=== PATIENT | female | born 1975 | race American Indian/Alaskan Native ===

== ENCOUNTER 2018-12-01 12:16 | Inpatient (IN) | payer MEDICAID, MEDICARE, OTHER ==
--- NOTE | 2018-12-01 12:34 | Emergency Department Report ---
Blank Doc - Documentation Documentation: Here for SOB, Cough, CP, Abdominal Pain. Hx/o CHF, DM II, ICD, This initial assessment diagnostic orders/clinical plan/treatment (s) is/Are subjectto change based on patient's health status, clinical progession and re- assessment by fellow clinical providers in the ED. Further treatment and work-up at subsequent clinical providers decretion. Patient/guardians urged not to elope from s their condition may be serious if not clinically assessed and managed. Inital order include: CBC, CMP, BNP, EKG, UA, CXR
[2018-12-01] MEDS ORDERED: ASPIRIN PO ONE (12:49)
--- NOTE | 2018-12-01 12:54 | Emergency Department Report ---
ED Chest Pain HPI - General Chief Complaint: Pain General Stated Complaint: HANDS/FEET PAIN/ABD/COUGH/CHEST Time Seen by Provider: 12/01/18 12:27 Source: patient, EMS Mode of arrival: Wheelchair Limitations: No Limitations - History of Present Illness Initial Comments: Is a 43-year-old female that presents emergency room with complaints of chest pain and shortness of breath 3 days. Patient also complaining of dyspnea on exertion. They states she's had a cough for about a week but the cough is dry. Patient denies fever chills. Patient denies diaphoresis. Patient states the pain in her chest as a 10 out of 10 and is worsening. He states the pain is in the center of her chest and is nonradiating. Patient states the pain is better with rest and worse with exertion. MD Complaint: chest pain -: Gradual Onset: during rest Pain Location: substernal, left chest Pain Radiation: none Severity: severe Severity scale (0 -10): 10 Quality: sharp Consistency: constant Improves With: rest Worsens With: exertion Context: recent illness re: dyspnea. denies: nausea, vomting, diaphoresis, sense of impending doom Other Symptoms: cough. denies: fever, syncope, rash, acid taste in mouth, leg swelling, palpitations, burping Treatments Prior to Arrival: none Aspirin use within the Past 7 Days: (1) Yes - Related Data On Oral Contraceptives: No Home Medications Medication Instructions Recorded Confirmed Last Taken Furosemide [Lasix] 40 mg PO DAILY 11/19/14 12/02/18 Unknown Rivaroxaban [Xarelto] 20 mg PO DAILY 11/19/14 12/02/18 Unknown Previous Rx's Medication Instructions Recorded Last Taken Type Aspirin EC [Aspirin Enteric Coated 81 mg PO QDAY #30 tablet. 08/26/14 Unknown Rx TAB] Isosorbide Dinitrate [Isordil] 40 mg PO QDAY #30 tablet 08/26/14 Unknown Rx Carvedilol [Coreg] 6.25 mg PO BID #30 tablet 11/27/14 Unknown Rx Lisinopril [Zestril TAB] 20 mg PO QDAY #30 tablet 11/27/14 Unknown Rx metOLazone [Zaroxolyn] 5 mg PO QDAY #30 tablet 11/27/14 Unknown Rx Allergies Allergy/AdvReac Type Severity Reaction Status Date / Time No Known Allergies Allergy Verified 12/01/18 12:19 Heart Score - HEART Score History: Slightly suspicious EKG: Non-specific Age: < 45 Risk factors: > 3 risk factors or hx of atherosclerotic disease Troponin: < normal limit HEART Score: 3 ED Review of Systems ROS: Stated complaint: HANDS/FEET PAIN/ABD/COUGH/CHEST Other details as noted in HPI Constitutional: denies: chills, fever Eyes: denies: eye pain, eye discharge, vision change ENT: denies: ear pain, throat pain Respiratory: cough, shortness of breath, SOB with exertion, SOB at rest. denies: wheezing Cardiovascular: chest pain. 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 Intra- abdominal abscess perirectal abscesses PE and DVT CVA cardiomyopathy C. difficile colitis - Surgical History Past Surgical History?: Yes Hx Coronary Stent: No Hx Pacemaker: No Hx Internal Defibrillator: Yes (AICD) Additional Surgical History: 4 C-sections, ankle surgery (w/plate)-left - Family History Family history: no significant - Social History Smoking Status: Former Smoker Substance Use Type: None - Medications Home Medications: Home Medications Medication Instructions Recorded Confirmed Last Taken Type Aspirin EC [Aspirin Enteric Coated 81 mg PO QDAY #30 tablet. 08/26/14 12/02/18 Unknown Rx TAB] Isosorbide Dinitrate [Isordil] 40 mg PO QDAY #30 tablet 08/26/14 12/02/18 Unknown Rx Furosemide [Lasix] 40 mg PO DAILY 11/19/14 12/02/18 Unknown History Rivaroxaban [Xarelto] 20 mg PO DAILY 11/19/14 12/02/18 Unknown History Carvedilol [Coreg] 6.25 mg PO BID #30 tablet 11/27/14 12/02/18 Unknown Rx Lisinopril [Zestril TAB] 20 mg PO QDAY #30 tablet 11/27/14 12/02/18 Unknown Rx metOLazone [Zaroxolyn] 5 mg PO QDAY #30 tablet 11/27/14 12/02/18 Unknown Rx ED Physical Exam - General Limitations: No Limitations General appearance: alert, in no apparent distress - Head Head exam: Present: atraumatic, normocephalic - Eye Eye exam: Present: normal appearance, PERRL Pupils: Present: normal accommodation - ENT ENT exam: Present: mucous membranes dry - Neck Neck exam: Present: normal inspection - Respiratory Respiratory exam: Present: normal lung sounds bilaterally. Absent: respiratory distress - Cardiovascular Cardiovascular Exam: Present: regular rate, normal rhythm. Absent: systolic murmur, diastolic murmur, rubs, gallop - GI/Abdominal GI/Abdominal exam: Present: soft, normal bowel sounds - Rectal Rectal exam: Present: deferred - Extremities Exam Extremities exam: Present: normal inspection - Back Exam Back exam: Present: normal inspection - Neurological Exam Neurological exam: Present: alert, oriented X3 - Psychiatric Psychiatric exam: Present: normal affect, normal mood - Skin Skin exam: Present: warm, dry, intact, normal color. Absent: rash ED Course Vital Signs 12/01/18 12/01/18 12/01/18 12:29 14:36 17:27 Temperature 98.0 F Pulse Rate 78 72 84 Respiratory 20 16 16 Rate Blood Pressure 170/113 Blood Pressure 141/93 157/115 [Left] O2 Sat by Pulse 99 97 95 Oximetry 12/01/18 12/01/18 12/01/18 18:29 20:00 21:00 Temperature 98.5 F Pulse Rate 84 89 86 Respiratory 16 18 Rate Blood Pressure 153/80 Blood Pressure 167/100 [Left] O2 Sat by Pulse 95 96 Oximetry - Reevaluation(s) Reevaluation #1: Discussed all results with patient. Patient will be admitted to the hospitalist service. Patient agrees with plan of care and admission. 12/01/18 15:40 - Consultations Consultation #1: Hospitalist consulted for admission. Hospitalist to admit patient. Hospitalist to assume care patient. 12/01/18 15:45 CELY score - Cely Score Age > 65: (0) No Aspirin use within the Past 7 Days: (1) Yes 3 or more CAD Risk Factors: (1) Yes 2 or more Angina events in past 24 hrs: (1) Yes Known CAD with more than 50% Stenosis: (1) Yes Elevated Cardiac Markers: (0) No ST Deviation Greater than 0.5mm: (0) No CELY Score: 4 ED Medical Decision Making - Lab Data Result diagrams: 12/01/18 14:11 12/01/18 12:56 - EKG Data -: EKG Interpreted by Me EKG shows normal: sinus rhythm, axis, intervals, QRS complexes, ST-T waves Rate: normal - Radiology Data Radiology results: report reviewed, image reviewed interpreted by me: chf changes AP CHEST: HISTORY: Short of breath Mild cardiomegaly, mild vascular congestion and trace left pleural effusion are suspected. The lungs are generally clear. The bony structures are unremarkable. IMPRESSION: Mild CHF. FINAL REPORT EXAM: CT ANGIO CHEST HISTORY: SOB TECHNIQUE: Enhanced CT of the chest at 2.5 mm axial intervals following a [facility] embolism protocol. Coronal and sagittal imaging were also obtained. Coronal oblique MIP projections were obtained. Contrast: 100 ml of Omnipaque 350 given IV. PRIORS: None. FINDINGS: There is no evidence for pulmonary embolism in the main pulmonary artery, right and left pulmonary arteries or their major distributions. However, CT does not exclude distal pulmonary emboli. There are patchy infiltrates present bilaterally involving all lobes of both lungs. There is slightly greater consolidation in the left apex medially and posterior right lung base. Otherwise, the lung parenchyma are expanded and clear with no evidence for parenchymal nodules, congestion, or pleural effusion. There is no evidence for mediastinal, hilar, or axillary adenopathy. Heart is enlarged. No evidence for ventricular chamber enlargement is seen. Images through the lung bases include the upper abdomen which show gallstones in the gallbladder. Bony structures demonstrate no focal abnormalities. IMPRESSION: 1. no evidence for pulmonary embolism. 2. Patchy infiltrates present bilaterally in all lobes of both lungs. Findings are slightly more consolidated in the left apex medially and right lung base posteriorly 3. cardiomegaly 4. Cholelithiasis - Medical Decision Making Patient is a 43-year-old female that presents to emergency with multiple comp laints. Patient's complaints include chest pain, shortness of breath, dyspnea on exertion, and cough. Patient found to have an STEMI, and CHF exacerbation. Patient placed on a heparin drip. Patient also found to have an elevated d- dimer. Patient had a CTA done which was negative for PE. Patient will be admitted into the hospital service for further evaluation treatment. - Differential Diagnosis cp. acs. nstemi. pe. chf Critical Care Time: Yes Critical care attestation.: If time is entered above; I have spent that time in minutes in the direct care of this critically ill patient, excluding procedure time. Critical Care Time: 45 minutes ED Disposition Clinical Impression: Uncontrolled hypertension, Acute on chronic systolic CHF (congestive heart failure), ORELLANA (dyspnea on exertion), Elevated d-dimer, Elevated brain natriuretic peptide (BNP) level, Elevated troponin I level, NSTEMI (non-ST elevated myocardial infarction) Chest pain Qualifiers: Chest pain type: unspecified Qualified Code(s): R07.9 - Chest pain, unspecified CHF (congestive heart failure) Qualifiers: Heart failure type: systolic Heart failure chronicity: acute on chronic Qualified Code(s): I50.23 - Acute on chronic systolic (congestive) heart failure Dyspnea Qualifiers: Dyspnea type: shortness of breath Qualified Code(s): R06.02 - Shortness of breath Disposition: 09 OP ADMIT IP TO THIS HOSP Is pt being admited?: Yes Does the pt Need Aspirin: No Condition: Critical Time of Disposition: 15:46
[2018-12-01 13:25] LABS: Creatine Kinase MB 1.2 ng/mL (0.0-4.0)
[2018-12-01 13:26] LABS: Alanine Aminotransferase 12 units/L (7-56); Albumin 2.7 g/dL (3.9-5); BUN/Creatinine Ratio 10; Blood Urea Nitrogen 8 mg/dL (7-17); Calcium 8.2 mg/dL (8.4-10.2); Hemolysis Index 9
[2018-12-01 13:37] LABS: Basophils # (Auto) 0.1 K/mm3 (0.0-0.1); Eosinophils # (Auto) 0.1 K/mm3 (0.0-0.4); Eosinophils % (Auto) 1.7 % (0.0-4.3); Hematocrit 42.6 % (30.3-42.9); Hemoglobin 13.6 gm/dl (10.1-14.3); Lymphocytes % (Auto) 15.9 % (13.4-35.0); Mean Corpuscular HGB Conc 32 % (30-34); Mean Corpuscular Volume 85 fl (79-97); Monocytes # (Auto) 0.5 K/mm3 (0.0-0.8); Monocytes % (Auto) 7.8 % (0.0-7.3); Platelet Count 202 K/mm3 (140-440); Red Blood Count 4.99 M/mm3 (3.65-5.03)
[2018-12-01] MEDS ORDERED: HEPARIN 10,000 UNITS/10 ML IV ONE (13:45)
[2018-12-01 13:46] LABS: Red Cell Distribution Width 21.3 % (13.2-15.2)
[2018-12-01] MEDS ORDERED: LASIX IV ONE (13:57)
[2018-12-01 14:10] LABS: Chol/HDL Ratio 2.78 %; HDL Cholesterol 28 mg/dL (40-59); LDL Cholesterol,Direct 41 mg/dL (50-130)
--- NOTE | 2018-12-01 14:19 | XRay Report ---
AP CHEST: HISTORY: Short of breath Mild cardiomegaly, mild vascular congestion and trace left pleural effusion are suspected. The lungs are generally clear. The bony structures are unremarkable. IMPRESSION: Mild CHF.
[2018-12-01 14:39] LABS: INR 1.28 (0.87-1.13)
[2018-12-01 14:55] LABS: Hematocrit 38.9 % (30.3-42.9); Hemoglobin 12.4 gm/dl (10.1-14.3)
[2018-12-01 15:05] LABS: Partial Thromboplastin Time 201.6 Sec. (24.2-36.6)
--- NOTE | 2018-12-01 15:19 | History and Physical Report ---
History of Present Illness Chief complaint: I have chest pain History of present illness: 43 YO Female with MO, DM, HTN, Systolic CHF, OR, PE on therapeutic anticoagulation presents to ED for evaluation. Pt states that she has experienced pain in her chest over the past 3 days with progressively worsening symptoms over the same time frame. Pt states that pain is 10/10, Substernal, sharp in nature, localized somewhat to the left chest, worsened with exertion, relieved with rest, associated with shortness of breath. Pt acknowledges Orthopnea/PND, Decreased exercise tolerance, nonproductive cough. Pt transported to [facility] for further care. Pt seen and evaluated in ED and found to have NSTEMI. Pt initiated on heparin drip. Pt admitted to telemetry. Cardiology consulted in ED. Past History Past Medical History: acute OR, diabetes, heart failure, hypertension Past Surgical History: Social history: . denies: smoking, prescription drug abuse Family history: CAD, diabetes, hypertension Medications and Allergies Allergies Allergy/AdvReac Type Severity Reaction Status Date / Time No Known Allergies Allergy Verified 12/01/18 12:19 Home Medications Medication Instructions Recorded Confirmed Last Taken Type Aspirin EC [Aspirin Enteric Coated 81 mg PO QDAY #30 tablet. 08/26/14 12/02/18 Unknown Rx TAB] Isosorbide Dinitrate [Isordil] 40 mg PO QDAY #30 tablet 08/26/14 12/02/18 Unknown Rx Furosemide [Lasix] 40 mg PO DAILY 11/19/14 12/02/18 Unknown History Rivaroxaban [Xarelto] 20 mg PO DAILY 11/19/14 12/02/18 Unknown History Carvedilol [Coreg] 6.25 mg PO BID #30 tablet 11/27/14 12/02/18 Unknown Rx Lisinopril [Zestril TAB] 20 mg PO QDAY #30 tablet 11/27/14 12/02/18 Unknown Rx metOLazone [Zaroxolyn] 5 mg PO QDAY #30 tablet 11/27/14 12/02/18 Unknown Rx Active Meds: Active Medications Heparin Sodium/Sodium Chloride (Heparin/ 0.45% Nacl-25,000 Unit/500 Ml) 25,000 unit in 500 mls @ 20 mls/hr IV TITRATE MAHOGANY; Protocol Review of Systems Constitutional: no weight loss, no fever, no sweats Ears, nose, mouth and throat: no ear pain, no tinnitis, no nose pain Breasts: no change in shape, no swelling, no mass Cardiovascular: chest pain, orthopnea, shortness of breath, dyspnea on exertion, paroxysmal nocturnal dyspnea, decreased exercise tolerance, no palpitations Respiratory: cough, no excessive sputum, no hemoptysis Gastrointestinal: no nausea, no vomiting, no diarrhea Genitourinary Female: no pelvic pain, no flank pain, no urgency Rectal: no pain, no incontinence, no bleeding Musculoskeletal: no neck pain, no arm numbness/tingling, no shooting leg pain Integumentary: no rash, no redness, no wounds Neurological: no head injury, no weakness, no tingling Psychiatric: no anxiety, no sleep disturbances, no hypersomnia Endocrine: no cold intolerance, no heat intolerance, no excessive thirst, no polyuria Hematologic/Lymphatic: no easy bruising, no easy bleeding Allergic/Immunologic: no urticaria, no allergic rhinitis Exam - Constitutional Vitals: Temp Pulse Resp BP Pulse Ox 98.0 F 72 16 141/93 97 12/01/18 12:29 12/01/18 14:36 12/01/18 14:36 12/01/18 14:36 12/01/18 14:36 General appearance: Present: mild distress, obese - EENT Eyes: Present: PERRL ENT: hearing intact, clear oral mucosa - Neck Neck: Present: supple, normal ROM - Respiratory Respiratory effort: normal Respiratory: bilateral: diminished, rhonchi - Cardiovascular Heart Sounds: Present: S1 & S2. Absent: rub, click - Extremities Extremities: No edema Extremity abnormal: edema Peripheral Pulses: within normal limits - Abdominal General gastrointestinal: Present: soft, non-tender, non-distended, normal bowel sounds Female genitourinary: Present: normal - Integumentary Integumentary: Present: clear, warm, dry - Musculoskeletal Musculoskeletal: gait normal, strength equal bilaterally - Psychiatric Psychiatric: appropriate mood/affect, intact judgment & insight - Neurologic Neurologic: CNII-XII intact, moves all extremities Results - Labs CBC & Chem 7: 12/01/18 14:11 12/01/18 12:56 Labs: Abnormal lab results 12/01/18 12/01/18 12/01/18 Range/Units 12:52 12:56 12:56 MCH 27 L (28-32) pg RDW 21.3 H (13.2-15.2) % Antelope % (Auto) 7.8 H (0.0-7.3) % Lymph # 1.0 L (1.2-5.4) K/mm3 Seg Neutrophils % 73.6 H (40.0-70.0) % PT (12.2-14.9) Sec. INR (0.87-1.13) APTT (24.2-36.6) Sec. D-Dimer 1931.82 H (0-234) ng/mlDDU Glucose 125 H (65-100) mg/dL Calcium 8.2 L (8.4-10.2) mg/dL Total Bilirubin 2.80 H (0.1-1.2) mg/dL Alkaline Phosphatase 152 H (35-129) units/L Troponin T 0.684 H* (0.00-0.029) ng/mL NT-Pro-B Natriuret Pep 42067 H (0-450) pg/mL Albumin 2.7 L (3.9-5) g/dL LDL Cholesterol Direct 41 L (50-130) mg/dL HDL Cholesterol 28 L (40-59) mg/dL 12/01/18 Range/Units 14:11 MCH (28-32) pg RDW (13.2-15.2) % Antelope % (Auto) (0.0-7.3) % Lymph # (1.2-5.4) K/mm3 Seg Neutrophils % (40.0-70.0) % PT 16.8 H (12.2-14.9) Sec. INR 1.28 H (0.87-1.13) APTT 201.6 H* (24.2-36.6) Sec. D-Dimer (0-234) ng/mlDDU Glucose (65-100) mg/dL Calcium (8.4-10.2) mg/dL Total Bilirubin (0.1-1.2) mg/dL Alkaline Phosphatase (35-129) units/L Troponin T (0.00-0.029) ng/mL NT-Pro-B Natriuret Pep (0-450) pg/mL Albumin (3.9-5) g/dL LDL Cholesterol Direct (50-130) mg/dL HDL Cholesterol (40-59) mg/dL Assessment and Plan - Patient Problems (1) NSTEMI (non-ST elevated myocardial infarction) Current Visit: Yes Status: Acute Plan to address problem: Admit to telemetry, cardiology consulted in ED, Initiate heparin drip, serial cardiac enzymes, ekg, Echo, (2) Acute on chronic systolic CHF (congestive heart failure) Current Visit: Yes Status: Acute Plan to address problem: Admit to telemetry, strict I/O, daily weight, monitor uop q shift, afterload reduction, Echo, cardiology consulted in ED, (3) Diabetes Current Visit: Yes Status: Acute Plan to address problem: ADA diet, insulin, accu check (4) HTN (hypertension) Current Visit: Yes Status: Acute Qualifiers: Hypertension type: essential hypertension Qualified Code(s): I10 - Essential (primary) hypertension Plan to address problem: Monitor bp q shift, continue medical management (5) DVT prophylaxis Current Visit: Yes Status: Acute Plan to address problem: SCD to BLE while in bed
[2018-12-01] MEDS ORDERED: ZOFRAN IV PRN (15:25)
[2018-12-01] MEDS ORDERED: PROVENTIL IH PRN (15:25)
[2018-12-01] MEDS ORDERED: SODIUM CHLORIDE FLUSH SYRINGE 10 ML IV PRN ×2 (15:25)
[2018-12-01] MEDS ORDERED: TYLENOL PO PRN (15:25)
[2018-12-01] MEDS ORDERED: BABY ASPIRIN PO STA (15:33)
[2018-12-01] MEDS: HEPARIN/ 0.45% NACL-25,000 UNIT/500 ML 25,000 UNIT/500 ML BAG IV SCH (15:37)
[2018-12-01 16:23] LABS: Bacteria,Urine 2+ /HPF (Negative); Bilirubin,Urine NEG (Negative); Blood,Urine NEG (Negative); Color,Urine Yellow (Yellow); Mucus,Urine FEW /HPF; Protein,Urine <15 mg/dL mg/dL (Negative)
--- NOTE | 2018-12-01 17:43 | Cat Scan Report ---
FINAL REPORT EXAM: CT ANGIO CHEST HISTORY: SOB TECHNIQUE: Enhanced CT of the chest at 2.5 mm axial intervals following a pulmonary embolism protoco l. Coronal and sagittal imaging were also obtained. Coronal oblique MIP projections were obtained. Contrast: 100 ml of Omnipaque 350 given IV. PRIORS: None. FINDINGS: There is no evidence for pulmonary embolism in the main pulmonary artery, right and left pulmonary ar teries or their major distributions. However, CT does not exclude distal pulmonary emboli. There are patchy infiltrates present bilaterally involving all lobes of both lungs. There is slightly greater consolidation in the left apex medially and posterior right lung base. Otherwise, the lung p arenchyma are expanded and clear with no evidence for parenchymal nodules, congestion, or pleural ef fusion. There is no evidence for mediastinal, hilar, or axillary adenopathy. Heart is enlarged. No evidence for ventricular chamber enlargement is seen. Images through the lung bases include the upper abdomen which show gallstones in the gallbladder. Bony structures demonstrate no focal abnormalities. IMPRESSION: 1. no evidence for pulmonary embolism. 2. Patchy infiltrates present bilaterally in all lobes of both lungs. Findings are slightly more cons olidated in the left apex medially and right lung base posteriorly 3. cardiomegaly 4. Cholelithiasis
[2018-12-01] MEDS: SODIUM CHLORIDE FLUSH SYRINGE 10 ML IV SCH (22:03)
[2018-12-01] MEDS: COREG PO SCH (22:03)
[2018-12-01] MEDS: HumaLOG SUB-Q SCH (22:48)
[2018-12-02] MEDS: MORPHINE IV PRN ×2 (00:44→21:08)
[2018-12-02] MEDS ORDERED: ISORDIL TITRADOSE PO SCH (10:00)
[2018-12-02] MEDS ORDERED: HALFPRIN EC PO SCH (10:00)
[2018-12-02] MEDS ORDERED: ISOSORBIDE DINITRATE 40 MG PO SCH (10:00)
[2018-12-02] MEDS ORDERED: ZAROXOLYN PO SCH (10:00)
[2018-12-02] MEDS: HumaLOG SUB-Q SCH ×3 (10:02→18:21)
[2018-12-02] MEDS: ZESTRIL PO SCH (10:04)
[2018-12-02] MEDS: COREG PO SCH ×2 (10:05→21:07)
[2018-12-02] MEDS: SODIUM CHLORIDE FLUSH SYRINGE 10 ML IV SCH (10:09)
[2018-12-02] MEDS ORDERED: PNEUMOVAX 23 IM ONE (12:00)
[2018-12-02] MEDS ORDERED: AFLURIA QUAD 2018-2019 SYRINGE IM ONE (12:00)
--- NOTE | 2018-12-02 13:00 | Consultation ---
Addendum entered and electronically signed by ANDRES PALOMO MD 12/02/18 13:52: 43-year-old woman with a long history of a dilated nonischemic cardiomyopathy, d ating back to 2013. A year ago, she was implanted with a subcutaneous internal cardiac defibrillator. With that at this time with cough and congestion, chest x-ray shows cardiomegaly and mild interstitial edema. Notable on this presentation, her echocardiogram shows in addition to chronic reduced left ventricle ejection fraction of 20%, there is a laminated apical left ventricular thrombus evident on the echo. On further conversations with the patient, she states that this lesion was previously discovered and she was previously on warfarin, which was stopped because she could not afford the required routine INR checks. Recommendations: Continue optimal guideline directed medical therapy for chronic systolic heart failure. If no contraindications, she will be resumed on long-term oral anticoagulation with warfarin for future stroke prophylaxis. Original Note: History of Present Illness Consult date: 12/02/18 Consult reason: elevated troponin History of present illness: Patient presents to this hospital with complaints of shortness of breath, coughs and congestion. Chest x-ray reports no acute cardiopulmonary process. An ECG is benign, sinus rhythm with low voltage. Further evaluation with an echocardiogram revealed evidence of a laminated thrombus in the left ventricular apex. There is severe, 4 chamber dilated cardiomyopathy with a decreased left ventricular ejection fraction 15-20%. Patient gives a history of prior PE and LV thrombus previously treated with warfarin. Patient reports she is no longer taking due to insurance issues. Patient also a history of nonischemic cardiomyopathy by cardiac cath several years ago that reports no significant coronary artery disease, EF 20%. She has a subcutaneous cardiac defibrillator implant and reports she is followed by a post partum nurse at [facility]. Past History Past Medical History: acute AR, diabetes, heart failure, hypertension Past Surgical History: Social history: . denies: smoking, prescription drug abuse Family history: CAD, diabetes, hypertension Medications and Allergies Allergies Allergy/AdvReac Type Severity Reaction Status Date / Time No Known Allergies Allergy Verified 12/01/18 12:19 Home Medications Medication Instructions Recorded Confirmed Last Taken Type Aspirin EC [Aspirin Enteric Coated 81 mg PO QDAY #30 tablet. 08/26/14 12/02/18 Unknown Rx TAB] Isosorbide Dinitrate [Isordil] 40 mg PO QDAY #30 tablet 08/26/14 12/02/18 Unknown Rx Furosemide [Lasix] 40 mg PO DAILY 11/19/14 12/02/18 Unknown History Rivaroxaban [Xarelto] 20 mg PO DAILY 11/19/14 12/02/18 Unknown History Carvedilol [Coreg] 6.25 mg PO BID #30 tablet 11/27/14 12/02/18 Unknown Rx Lisinopril [Zestril TAB] 20 mg PO QDAY #30 tablet 11/27/14 12/02/18 Unknown Rx metOLazone [Zaroxolyn] 5 mg PO QDAY #30 tablet 11/27/14 12/02/18 Unknown Rx Active Meds: Active Medications Acetaminophen (Tylenol) 650 mg PO Q4H PRN PRN Reason: Pain MILD(1-3)/Fever >100.5/OAKES Albuterol (Proventil) 2.5 mg IH Q4HRT PRN PRN Reason: Shortness Of Breath Aspirin (Halfprin Ec) 81 mg PO QDAY [facility] Last Admin: 12/02/18 10:04 Dose: 81 mg Documented by: Carvedilol (Coreg) 6.25 mg PO BID [facility] Last Admin: 12/02/18 10:05 Dose: 6.25 mg Documented by: Heparin Sodium/Sodium Chloride (Heparin/ 0.45% Nacl-25,000 Unit/500 Ml) 25,000 unit in 500 mls @ 20 mls/hr IV TITRATE [facility]; Protocol Last Titration: 12/02/18 07:12 Dose: 1,400 units/hr, 28 mls/hr Documented by: Insulin Human Lispro (Humalog) 0 unit SUB-Q ACHS [facility]; Protocol Last Admin: 12/02/18 10:02 Dose: Not Given Documented by: Isosorbide Dinitrate (Isordil Titradose) 40 mg PO DAILY [facility] Last Admin: 12/02/18 10:06 Dose: 40 mg Documented by: Lisinopril (Zestril) 20 mg PO QDAY [facility] Last Admin: 12/02/18 10:04 Dose: 20 mg Documented by: Metolazone (Zaroxolyn) 5 mg PO QDAY [facility] Last Admin: 12/02/18 10:04 Dose: 5 mg Documented by: Morphine Sulfate (Morphine) 2 mg IV Q4H PRN PRN Reason: Pain, Moderate (4-6) Last Admin: 12/02/18 00:44 Dose: 2 mg Documented by: Ondansetron HCl (Zofran) 4 mg IV Q8H PRN PRN Reason: Nausea And Vomiting Sodium Chloride (Sodium Chloride Flush Syringe 10 Ml) 10 ml IV BID [facility] Last Admin: 12/02/18 10:09 Dose: 10 ml Documented by: Sodium Chloride (Sodium Chloride Flush Syringe 10 Ml) 10 ml IV PRN PRN PRN Reason: LINE FLUSH Sodium Chloride (Sodium Chloride Flush Syringe 10 Ml) 10 ml IV PRN PRN PRN Reason: LINE FLUSH Physical Examination Vital Signs Temp Pulse Resp BP Pulse Ox 98.0 F 78 20 170/113 99 12/01/18 12:29 12/01/18 12:29 12/01/18 12:29 12/01/18 12:29 12/01/18 12:29 General appearance: no acute distress, obese HEENT: Positive: PERRL Cardiac: Positive: Reg Rate and Rhythm Lungs: Positive: Decreased Breath Sounds Neuro: Positive: Grossly Intact Extremities: Present: +1 Edema Results 12/01/18 14:11 12/01/18 12:56 Cardiac Enzymes 12/01/18 Range/Units 12:56 AST 18 (5-40) units/L CK-MB (CK-2) 1.2 (0.0-4.0) ng/mL Coagulation 12/01/18 Range/Units 14:11 PT 16.8 H (12.2-14.9) Sec. INR 1.28 H (0.87-1.13) APTT 201.6 H* (24.2-36.6) Sec. Lipids 12/01/18 Range/Units 12:56 Triglycerides 81 (2-149) mg/dL Cholesterol 78 (50-199) mg/dL HDL Cholesterol 28 L (40-59) mg/dL Cholesterol/HDL Ratio 2.78 % CBC 12/01/18 12/01/18 Range/Units 12:52 14:11 WBC 6.5 (4.5-11.0) K/mm3 RBC 4.99 (3.65-5.03) M/mm3 Hgb 13.6 12.4 (10.1-14.3) gm/dl Hct 42.6 38.9 (30.3-42.9) % Plt Count 202 211 (140-440) K/mm3 Lymph # 1.0 L (1.2-5.4) K/mm3 Burnett # 0.5 (0.0-0.8) K/mm3 Eos # 0.1 (0.0-0.4) K/mm3 Baso # 0.1 (0.0-0.1) K/mm3 Comprehensive Metabolic Panel 12/01/18 Range/Units 12:56 Sodium 141 (137-145) mmol/L Potassium 3.6 (3.6-5.0) mmol/L Chloride 101.1 (98-107) mmol/L Carbon Dioxide 27 (22-30) mmol/L BUN 8 (7-17) mg/dL Creatinine 0.8 (0.7-1.2) mg/dL Glucose 125 H (65-100) mg/dL Calcium 8.2 L (8.4-10.2) mg/dL AST 18 (5-40) units/L ALT 12 (7-56) units/L Alkaline Phosphatase 152 H (35-129) units/L Total Protein 6.9 (6.3-8.2) g/dL Albumin 2.7 L (3.9-5) g/dL Assessment and Plan Shortness of breath Laminated LV thrombus Nonischemic cardiomyopathy Presence of AICD, subcutaneous Obesity
[2018-12-02] MEDS: HEPARIN/ 0.45% NACL-25,000 UNIT/500 ML 25,000 UNIT/500 ML BAG IV SCH ×2 (13:12→15:27)
--- NOTE | 2018-12-02 16:56 | Progress Note ---
Assessment and Plan Assessment and plan: Patient is a 43 yo woman with a history of Dilated NICMP s/p ICD, CHF with EF 20%, PE noncompliant with anticoagulation, hypertension and DM type 2 who presented to [facility] ED with chest pains, sob and cough. * pCXR shows mild CHF * 2D ECHO Conclusions: Severe 4 chamber dilated cardiomyopathy, left ventricular chamber size is severely dilated, global left ventricular systolic function is severely decrease, estimated ejection fraction is 15-20%, a Laminated thrombus is visualized in the left ventricular APEX, mild to moderate MR, mild to moderated TR, evidence of moderate pulmonary hypertension, RVSP is calculated at 48 mmHg -Chest pains is actually reproducible and elevated troponin, d/w Dr. Ga, no NSTEMI and I was told to stop the heparin drip, most likely related to CHF: start iv lasix bid and Spironolactone per Dr. Ga. -Laminated LV thrombus, d/w Dr. Ga: treat with Coumadin without iv heparin drip/bridging -Acute on chronic systolic CHF (congestive heart failure): start iv lasix bid and Spironolactone per Dr. Ga. -Diabetes Mellitus: ADA diet, insulin, accu check -HTN (hypertension): Monitor bp q shift, continue medical management History Interval history: Patient was seen and examined. Follow-up on current diagnosis of chest pains. Overnight uneventful. Patient denies any chest pain, shortness breath, nausea/vomiting or severe headaches. Imaging, nursing note, chart, labs and old chart reviewed. Discussed with patient. Hospitalist Physical - Physical exam Narrative exam: Gen: WDWN, NAD, Awake, Alert, Orientated, bmi 45.8 HEENT: NCAT, EOMI, PERRL, OP Clear Neck: supple, no adenopathy, no thyromegaly, equivocal, JVD CVS/Heart: RRR, normal S1S2, pulses present bilaterally Chest/Lungs: diminished bs bilateral with crackles, Symmetrical chest expansion, good air entry bilaterally, reproducible cw tenderness GI/Abdomen: soft, NTND, good bowel sounds, no guarding or rebound /Bladder: no suprapubic tenderness, no CVA or paraspinal tenderness Extermity/Skin: BLE edema, no obvious rash MSK: FROM x 4 Neuro: CN 2-12 grossly intact, no new focal deficits Psych: calm - Constitutional Vitals: Temp Pulse Resp BP Pulse Ox 97.2 F L 73 18 128/85 94 12/02/18 11:21 12/02/18 11:21 12/02/18 11:21 12/02/18 11:21 12/02/18 11:21 General appearance: Present: no acute distress, obese Results - Labs CBC & Chem 7: 12/01/18 14:11 12/01/18 12:56 Labs: Laboratory Last Values WBC 6.5 K/mm3 (4.5-11.0) 12/01/18 12:52 RBC 4.99 M/mm3 (3.65-5.03) 12/01/18 12:52 Hgb 12.4 gm/dl (10.1-14.3) 12/01/18 14:11 Hct 38.9 % (30.3-42.9) 12/01/18 14:11 MCV 85 fl (79-97) 12/01/18 12:52 MCH 27 pg (28-32) L 12/01/18 12:52 MCHC 32 % (30-34) 12/01/18 12:52 RDW 21.3 % (13.2-15.2) H 12/01/18 12:52 Plt Count 211 K/mm3 (140-440) 12/01/18 14:11 Lymph % (Auto) 15.9 % (13.4-35.0) 12/01/18 12:52 Taney % (Auto) 7.8 % (0.0-7.3) H 12/01/18 12:52 Eos % (Auto) 1.7 % (0.0-4.3) 12/01/18 12:52 Baso % (Auto) Presser All Around 12/01/18 12:52 Lymph # 1.0 K/mm3 (1.2-5.4) L 12/01/18 12:52 Taney # 0.5 K/mm3 (0.0-0.8) 12/01/18 12:52 Eos # 0.1 K/mm3 (0.0-0.4) 12/01/18 12:52 Baso # 0.1 K/mm3 (0.0-0.1) 12/01/18 12:52 Seg Neutrophils % 73.6 % (40.0-70.0) H 12/01/18 12:52 Seg Neutrophils # 4.8 K/mm3 (1.8-7.7) 12/01/18 12:52 PT 16.8 Sec. (12.2-14.9) H 12/01/18 14:11 INR 1.28 (0.87-1.13) H 12/01/18 14:11 APTT 201.6 Sec. (24.2-36.6) H* 12/01/18 14:11 D-Dimer 1931.82 ng/mlDDU (0-234) H 12/01/18 12:56 Heparin Anti-Xa Level 0.24 U.I./ml (0.3-0.7) L 12/02/18 13:18 Sodium 141 mmol/L (137-145) 12/01/18 12:56 Potassium 3.6 mmol/L (3.6-5.0) 12/01/18 12:56 Chloride 101.1 mmol/L (98-107) 12/01/18 12:56 Carbon Dioxide 27 mmol/L (22-30) 12/01/18 12:56 Anion Gap 17 mmol/L 12/01/18 12:56 BUN 8 mg/dL (7-17) 12/01/18 12:56 Creatinine 0.8 mg/dL (0.7-1.2) 12/01/18 12:56 Estimated GFR > 60 ml/min 12/01/18 12:56 BUN/Creatinine Ratio 10 % 12/01/18 12:56 Glucose 125 mg/dL (65-100) H 12/01/18 12:56 POC Glucose 157 (70-105) H 12/02/18 16:03 Calcium 8.2 mg/dL (8.4-10.2) L 12/01/18 12:56 Total Bilirubin 2.80 mg/dL (0.1-1.2) H 12/01/18 12:56 AST 18 units/L (5-40) 12/01/18 12:56 ALT 12 units/L (7-56) 12/01/18 12:56 Alkaline Phosphatase 152 units/L (35-129) H 12/01/18 12:56 Total Creatine Kinase 96 units/L (30-135) 12/01/18 12:56 CK-MB (CK-2) 1.2 ng/mL (0.0-4.0) 12/01/18 12:56 CK-MB (CK-2) Rel Index 1.2 (0-4) 12/01/18 12:56 Troponin T 0.616 ng/mL (0.00-0.029) H* 12/01/18 23:05 NT-Pro-B Natriuret Pep 44358 pg/mL (0-450) H 12/01/18 12:56 Total Protein 6.9 g/dL (6.3-8.2) 12/01/18 12:56 Albumin 2.7 g/dL (3.9-5) L 12/01/18 12:56 Albumin/Globulin Ratio 0.6 % 12/01/18 12:56 Triglycerides 81 mg/dL (2-149) 12/01/18 12:56 Cholesterol 78 mg/dL (50-199) 12/01/18 12:56 LDL Cholesterol Direct 41 mg/dL (50-130) L 12/01/18 12:56 HDL Cholesterol 28 mg/dL (40-59) L 12/01/18 12:56 Cholesterol/HDL Ratio 2.78 % 12/01/18 12:56 HCG, Qual Negative (Negative) 12/01/18 13:51 Urine Color Yellow (Yellow) 12/01/18 14:29 Urine Turbidity Clear (Clear) 12/01/18 14:29 Urine pH 7.0 (5.0-7.0) 12/01/18 14:29 Ur Specific Jarreau 1.004 (1.003-1.030) 12/01/18 14:29 Urine Protein <15 mg/dl mg/dL (Negative) 12/01/18 14:29 Urine Glucose (UA) Neg mg/dL (Negative) 12/01/18 14:29 Urine Ketones Neg mg/dL (Negative) 12/01/18 14:29 Urine Blood Neg (Negative) 12/01/18 14:29 Urine Nitrite Neg (Negative) 12/01/18 14:29 Urine Bilirubin Neg (Negative) 12/01/18 14:29 Urine Urobilinogen 2.0 mg/dL (<2.0) 12/01/18 14:29 Ur Leukocyte Esterase Neg (Negative) 12/01/18 14:29 Urine WBC (Auto) 2.0 /HPF (0.0-6.0) 12/01/18 14:29 Urine RBC (Auto) 2.0 /HPF (0.0-6.0) 12/01/18 14:29 U Epithel Cells (Auto) 1.0 /HPF (0-13.0) 12/01/18 14:29 Urine Bacteria (Auto) 2+ /HPF (Negative) 12/01/18 14:29 Urine Mucus Few /HPF 12/01/18 14:29
[2018-12-02] MEDS: LASIX IV SCH (18:20)
[2018-12-02] MEDS: ALDACTONE PO SCH (18:22)
[2018-12-03] MEDS: HumaLOG SUB-Q SCH ×5 (00:13→21:59)
[2018-12-03 06:14] LABS: Hematocrit 36.1 % (30.3-42.9); Hemoglobin 11.5 gm/dl (10.1-14.3); Mean Corpuscular HGB Conc 32 % (30-34); Mean Corpuscular Volume 86 fl (79-97); Platelet Count 189 K/mm3 (140-440); Red Blood Count 4.22 M/mm3 (3.65-5.03)
[2018-12-03 06:16] LABS: Red Cell Distribution Width 20.9 % (13.2-15.2)
[2018-12-03 06:26] LABS: BUN/Creatinine Ratio 10; Blood Urea Nitrogen 11 mg/dL (7-17); Calcium 8.2 mg/dL (8.4-10.2); Hemolysis Index 5
[2018-12-03] MEDS: LASIX IV SCH ×2 (06:52→17:39)
--- NOTE | 2018-12-03 09:29 | Progress Note ---
Addendum entered and electronically signed by RONALDO ALBARADO MD 12/03/18 09:38: Continue IV diuresis Replace potassium Add holding parameters to coreg, lasix and lisinopril Discontinue Isordil Resume eliquis for history of LV thrombus (patient not on coumadin due to non- compliance with INR checks) Advised fluid restriction Original Note: Assessment and Plan Shortness of breath Hx of Laminated LV thrombus Nonischemic cardiomyopathy Presence of AICD, subcutaneous Obesity Echocardiogram shows chronic reduced left ventricle ejection fraction of 20%. There is a laminated apical left ventricular thrombus evident on the echo. On further conversations with the patient, she states that this lesion was previously discovered and she was previously on warfarin, which was stopped because she could not afford the required routine INR checks. Patient reports she is taking eliquis as an outpatient. Recommendations: Continue optimal medical therapy for chronic systolic heart failure. Eliquis will be resumed for long-term oral anticoagulation for stroke prophylaxis. Subjective Date of service: 12/03/18 Interval history: No cardiac complaints. No distress noted. Objective Vital Signs Temp Pulse Resp BP Pulse Ox 12/03/18 08:15 98.1 F 12/03/18 08:13 62 18 131/87 97 12/03/18 04:15 98.0 F 60 18 90/54 95 12/03/18 04:00 65 12/02/18 20:46 98.0 F 63 20 100/63 100 12/02/18 18:22 65 129/82 12/02/18 15:59 98.4 F 65 18 129/82 96 12/02/18 11:21 97.2 F L 73 18 128/85 94 12/02/18 10:06 69 139/101 12/02/18 10:05 69 139/101 12/02/18 10:04 69 139/101 - Physical Examination General: No Apparent Distress HEENT: Positive: PERRL Cardiac: Positive: Reg Rate and Rhythm Lungs: Positive: Decreased Breath Sounds Neuro: Positive: Grossly Intact Extremities: Present: +1 Edema - Labs and Meds CBC 12/03/18 Range/Units 05:10 WBC 6.4 (4.5-11.0) K/mm3 RBC 4.22 (3.65-5.03) M/mm3 Hgb 11.5 (10.1-14.3) gm/dl Hct 36.1 (30.3-42.9) % Plt Count 189 (140-440) K/mm3 Comprehensive Metabolic Panel 12/03/18 Range/Units 05:10 Sodium 141 (137-145) mmol/L Potassium 3.0 L (3.6-5.0) mmol/L Chloride 98.5 (98-107) mmol/L Carbon Dioxide 29 (22-30) mmol/L BUN 11 (7-17) mg/dL Creatinine 1.1 (0.7-1.2) mg/dL Glucose 123 H (65-100) mg/dL Calcium 8.2 L (8.4-10.2) mg/dL
[2018-12-03] MEDS: SODIUM CHLORIDE FLUSH SYRINGE 10 ML IV SCH ×3 (10:25→21:19)
[2018-12-03] MEDS: ALDACTONE PO SCH (10:26)
[2018-12-03] MEDS: COREG PO SCH ×2 (10:47→21:15)
[2018-12-03] MEDS: ZESTRIL PO SCH (10:47)
[2018-12-03] MEDS: ELIQUIS PO SCH ×2 (10:47→21:15)
[2018-12-03] MEDS: K-DUR PO SCH ×2 (10:47→15:00)
[2018-12-03] MEDS: MORPHINE IV PRN (21:15)
[2018-12-03] MEDS ORDERED: MAGNESIUM SULFATE 2GM/50ML 2 GM/50 ML BAG IV ONE (21:25)
[2018-12-03] MEDS ORDERED: K-DUR PO ONE (21:26)
[2018-12-04 05:06] LABS: Hematocrit 37.2 % (30.3-42.9); Mean Corpuscular HGB Conc 32 % (30-34); Mean Corpuscular Volume 85 fl (79-97); Platelet Count 222 K/mm3 (140-440); Red Blood Count 4.39 M/mm3 (3.65-5.03)
[2018-12-04 05:07] LABS: Red Cell Distribution Width 21.3 % (13.2-15.2)
[2018-12-04 05:39] LABS: BUN/Creatinine Ratio 12; Blood Urea Nitrogen 12 mg/dL (7-17); Calcium 8.5 mg/dL (8.4-10.2); Hemolysis Index 15
[2018-12-04] MEDS: LASIX IV SCH ×2 (06:11→17:21)
--- NOTE | 2018-12-04 08:15 | Progress Note ---
Assessment and Plan Assessment and plan: Patient is a 43 yo woman with a history of Dilated NICMP s/p ICD, CHF with EF 20%, PE noncompliant with anticoagulation, hypertension and DM type 2 who presented to [facility] ED with chest pains, sob and cough. * pCXR shows mild CHF * 2D ECHO Conclusions: Severe 4 chamber dilated cardiomyopathy, left ventricular chamber size is severely dilated, global left ventricular systolic function is severely decrease, estimated ejection fraction is 15-20%, a Laminated thrombus is visualized in the left ventricular APEX, mild to moderate MR, mild to moderated TR, evidence of moderate pulmonary hypertension, RVSP is calculated at 48 mmHg -Chest pains is actually reproducible/msk/costochondritis and elevated troponin, d/w Dr. Ga, no NSTEMI and I was told to stop the heparin drip, most likely related to CHF: start iv lasix bid and Spironolactone per Dr. Ga. -Laminated LV thrombus, d/w Dr. Ga: treat with Coumadin without iv heparin drip/bridging==>changed to Eliquis -Acute on chronic systolic CHF (congestive heart failure): start iv lasix bid and Spironolactone per Dr. Ga. -Diabetes Mellitus: ADA diet, insulin, accu check -HTN (hypertension): Monitor bp q shift, continue medical management -Transient Afib overnight; already rate controlled, icd and a/c D/c if cleared by Cardiology History Interval history: Patient was seen and examined. Follow-up on current diagnosis of chest pains doing better. Overnight uneventful. Patient denies any chest pain, shortness breath, nausea/vomiting or severe headaches. Imaging, nursing note, chart, labs and old chart reviewed. Discussed with patient. Hospitalist Physical - Physical exam Narrative exam: Gen: WDWN, NAD, Awake, Alert, Orientated, bmi 45.8 HEENT: NCAT, EOMI, PERRL, OP Clear Neck: supple, no adenopathy, no thyromegaly, equivocal, JVD CVS/Heart: RRR, normal S1S2, pulses present bilaterally Chest/Lungs: diminished bs bilateral with crackles, Symmetrical chest expansion, good air entry bilaterally, reproducible cw tenderness GI/Abdomen: soft, NTND, good bowel sounds, no guarding or rebound /Bladder: no suprapubic tenderness, no CVA or paraspinal tenderness Extermity/Skin: BLE edema, no obvious rash MSK: FROM x 4 Neuro: CN 2-12 grossly intact, no new focal deficits Psych: calm - Constitutional Vitals: Temp Pulse Resp BP Pulse Ox 97.8 F 82 18 115/80 95 12/04/18 03:42 12/04/18 04:00 12/04/18 03:42 12/04/18 03:42 12/04/18 03:42 General appearance: Present: no acute distress, obese Results - Labs CBC & Chem 7: 12/04/18 04:28 12/04/18 04:28 Labs: Laboratory Last Values WBC 6.7 K/mm3 (4.5-11.0) 12/04/18 04:28 RBC 4.39 M/mm3 (3.65-5.03) 12/04/18 04:28 Hgb 12.0 gm/dl (10.1-14.3) 12/04/18 04:28 Hct 37.2 % (30.3-42.9) 12/04/18 04:28 MCV 85 fl (79-97) 12/04/18 04:28 MCH 27 pg (28-32) L 12/04/18 04:28 MCHC 32 % (30-34) 12/04/18 04:28 RDW 21.3 % (13.2-15.2) H 12/04/18 04:28 Plt Count 222 K/mm3 (140-440) 12/04/18 04:28 Lymph % (Auto) 15.9 % (13.4-35.0) 12/01/18 12:52 Dawson % (Auto) 7.8 % (0.0-7.3) H 12/01/18 12:52 Eos % (Auto) 1.7 % (0.0-4.3) 12/01/18 12:52 Baso % (Auto) Blind Eyeletter 12/01/18 12:52 Lymph # 1.0 K/mm3 (1.2-5.4) L 12/01/18 12:52 Dawson # 0.5 K/mm3 (0.0-0.8) 12/01/18 12:52 Eos # 0.1 K/mm3 (0.0-0.4) 12/01/18 12:52 Baso # 0.1 K/mm3 (0.0-0.1) 12/01/18 12:52 Seg Neutrophils % 73.6 % (40.0-70.0) H 12/01/18 12:52 Seg Neutrophils # 4.8 K/mm3 (1.8-7.7) 12/01/18 12:52 PT 16.8 Sec. (12.2-14.9) H 12/01/18 14:11 INR 1.28 (0.87-1.13) H 12/01/18 14:11 APTT 201.6 Sec. (24.2-36.6) H* 12/01/18 14:11 D-Dimer 1931.82 ng/mlDDU (0-234) H 12/01/18 12:56 Heparin Anti-Xa Level 0.24 U.I./ml (0.3-0.7) L 12/02/18 13:18 Sodium 143 mmol/L (137-145) 12/04/18 04:28 Potassium 4.0 mmol/L (3.6-5.0) D 12/04/18 04:28 Chloride 100.4 mmol/L (98-107) 12/04/18 04:28 Carbon Dioxide 28 mmol/L (22-30) 12/04/18 04:28 Anion Gap 19 mmol/L 12/04/18 04:28 BUN 12 mg/dL (7-17) 12/04/18 04:28 Creatinine 1.0 mg/dL (0.7-1.2) 12/04/18 04:28 Estimated GFR > 60 ml/min 12/04/18 04:28 BUN/Creatinine Ratio 12 % 12/04/18 04:28 Glucose 135 mg/dL (65-100) H 12/04/18 04:28 POC Glucose 150 (70-105) H 12/04/18 07:23 Calcium 8.5 mg/dL (8.4-10.2) 12/04/18 04:28 Magnesium 1.40 mg/dL (1.7-2.3) L 12/03/18 05:10 Total Bilirubin 2.80 mg/dL (0.1-1.2) H 12/01/18 12:56 AST 18 units/L (5-40) 12/01/18 12:56 ALT 12 units/L (7-56) 12/01/18 12:56 Alkaline Phosphatase 152 units/L (35-129) H 12/01/18 12:56 Total Creatine Kinase 96 units/L (30-135) 12/01/18 12:56 CK-MB (CK-2) 1.2 ng/mL (0.0-4.0) 12/01/18 12:56 CK-MB (CK-2) Rel Index 1.2 (0-4) 12/01/18 12:56 Troponin T 0.616 ng/mL (0.00-0.029) H* 12/01/18 23:05 NT-Pro-B Natriuret Pep 80693 pg/mL (0-450) H 12/01/18 12:56 Total Protein 6.9 g/dL (6.3-8.2) 12/01/18 12:56 Albumin 2.7 g/dL (3.9-5) L 12/01/18 12:56 Albumin/Globulin Ratio 0.6 % 12/01/18 12:56 Triglycerides 81 mg/dL (2-149) 12/01/18 12:56 Cholesterol 78 mg/dL (50-199) 12/01/18 12:56 LDL Cholesterol Direct 41 mg/dL (50-130) L 12/01/18 12:56 HDL Cholesterol 28 mg/dL (40-59) L 12/01/18 12:56 Cholesterol/HDL Ratio 2.78 % 12/01/18 12:56 HCG, Qual Negative (Negative) 12/01/18 13:51 Urine Color Yellow (Yellow) 12/01/18 14:29 Urine Turbidity Clear (Clear) 12/01/18 14:29 Urine pH 7.0 (5.0-7.0) 12/01/18 14:29 Ur Specific Oakes 1.004 (1.003-1.030) 12/01/18 14:29 Urine Protein <15 mg/dl mg/dL (Negative) 12/01/18 14:29 Urine Glucose (UA) Neg mg/dL (Negative) 12/01/18 14:29 Urine Ketones Neg mg/dL (Negative) 12/01/18 14:29 Urine Blood Neg (Negative) 12/01/18 14:29 Urine Nitrite Neg (Negative) 12/01/18 14:29 Urine Bilirubin Neg (Negative) 12/01/18 14:29 Urine Urobilinogen 2.0 mg/dL (<2.0) 12/01/18 14:29 Ur Leukocyte Esterase Neg (Negative) 12/01/18 14:29 Urine WBC (Auto) 2.0 /HPF (0.0-6.0) 12/01/18 14:29 Urine RBC (Auto) 2.0 /HPF (0.0-6.0) 12/01/18 14:29 U Epithel Cells (Auto) 1.0 /HPF (0-13.0) 12/01/18 14:29 Urine Bacteria (Auto) 2+ /HPF (Negative) 12/01/18 14:29 Urine Mucus Few /HPF 12/01/18 14:29
--- NOTE | 2018-12-04 08:19 | Discharge Summary ---
Providers - Providers Date of Admission: 12/01/18 15:25 Date of discharge: 12/05/18 Attending physician: KARIME GRANDE 12/02/18 17:03 Consult to Physician [CONS] Routine Comment: Consulting Provider: ANDRES PALOMO Physician Instructions: Already following Reason For Exam: Elevated troponin [facility] Condition: Stable Hospital course: Patient is a 43 yo woman with a history of Dilated NICMP s/p ICD, CHF with EF 20%, PE noncompliant with anticoagulation, hypertension and DM type 2 who presented to [facility] ED with chest pains, sob and cough. * pCXR shows mild CHF * 2D ECHO Conclusions: Severe 4 chamber dilated cardiomyopathy, left ventricular chamber size is severely dilated, global left ventricular systolic function is severely decrease, estimated ejection fraction is 15-20%, a Laminated thrombus is visualized in the left ventricular APEX, mild to moderate MR, mild to moderated TR, evidence of moderate pulmonary hypertension, RVSP is calculated at 48 mmHg -Chest pains is actually reproducible and elevated troponin, d/w Dr. Palomo, no NSTEMI and I was told to stop the heparin drip, most likely related to CHF: start iv lasix bid and Spironolactone per Dr. Palomo. -Laminated LV thrombus, d/w Dr. Palomo: treat with Coumadin without iv heparin drip/bridging==>on Xarelto at home -Acute on chronic systolic CHF (congestive heart failure): start iv lasix bid and Spironolactone per Dr. Palomo. -Diabetes Mellitus: ADA diet, insulin, accu check -HTN (hypertension): Monitor bp q shift, continue medical management Disposition: DC-30 STILL A PATIENT Time spent for discharge: 34 minutes Core Measure Documentation - Palliative Care Palliative Care/ Comfort Measures: Not Applicable - Core Measures Any of the following diagnoses?: heart failure - VTE Discharge Requirements Deep Vein Thrombosis/Pulmonary Embolism Present on Admission: No Has pt received <5 days of overlap therapy or INR<2.0: No Anticoagulant overlap therapy prescribed at discharge: No Contraindication No Overlap Therapy order at DC: Not Indicated - Heart Failure Discharge Requirements MARJAN/ARB for LVSD if EF <40%: Yes Beta nicole at discharge: Yes Exam - Physical Exam Narrative exam: Gen: WDWN, NAD, Awake, Alert, Orientated, bmi 45.8 HEENT: NCAT, EOMI, PERRL, OP Clear Neck: supple, no adenopathy, no thyromegaly, equivocal, JVD CVS/Heart: RRR, normal S1S2, pulses present bilaterally Chest/Lungs: diminished bs bilateral with crackles, Symmetrical chest expansion, good air entry bilaterally, reproducible cw tenderness GI/Abdomen: soft, NTND, good bowel sounds, no guarding or rebound /Bladder: no suprapubic tenderness, no CVA or paraspinal tenderness Extermity/Skin: BLE edema, no obvious rash MSK: FROM x 4 Neuro: CN 2-12 grossly intact, no new focal deficits Psych: calm - Constitutional Vitals: Temp Pulse Resp BP Pulse Ox 97.8 F 82 18 115/80 95 12/04/18 03:42 12/04/18 04:00 12/04/18 03:42 12/04/18 03:42 12/04/18 03:42 Plan Activity: other (no strenous activity unless cleared by Cardiology) Diet: low salt Follow up with: ARABELLA GLE[place] MD FREDO [Primary Care Provider] - 3-5 Days ANDRES PALOMO MD [Staff Physician] - 7 Days Prescriptions: Carvedilol [Coreg] 6.25 mg PO BID #30 tablet Furosemide [Lasix TAB] 40 mg PO QDAY #30 tablet Lisinopril [Zestril TAB] 20 mg PO QDAY #30 tablet Spironolactone [Aldactone] 25 mg PO QDAY #30 tablet
[2018-12-04] MEDS: HumaLOG SUB-Q SCH ×4 (08:31→22:33)
[2018-12-04] MEDS: COREG PO SCH ×2 (09:49→22:24)
[2018-12-04] MEDS: ZESTRIL PO SCH (09:49)
[2018-12-04] MEDS: ELIQUIS PO SCH ×2 (09:49→22:24)
[2018-12-04] MEDS: ALDACTONE PO SCH (09:50)
[2018-12-04] MEDS: SODIUM CHLORIDE FLUSH SYRINGE 10 ML IV SCH ×2 (09:53→22:34)
[2018-12-05] MEDS: LASIX IV SCH (06:04)
[2018-12-05] MEDS: HumaLOG SUB-Q SCH (07:45)
[2018-12-05 08:46] VITALS: BP 132/86
[2018-12-05] MEDS: COREG PO SCH (09:23)
[2018-12-05] MEDS: ZESTRIL PO SCH (09:23)
[2018-12-05] MEDS: ALDACTONE PO SCH (09:23)
[2018-12-05] MEDS: SODIUM CHLORIDE FLUSH SYRINGE 10 ML IV SCH (09:24)
[2018-12-05] MEDS: ELIQUIS PO SCH (09:28)
--- NOTE | 2018-12-05 10:40 | Progress Note ---
Assessment and Plan Assessment and plan: Patient is a 43 yo woman with a history of Dilated NICMP s/p ICD, CHF with EF 20%, PE noncompliant with anticoagulation, hypertension and DM type 2 who presented to [facility] ED with chest pains, sob and cough. * pCXR shows mild CHF * 2D ECHO Conclusions: Severe 4 chamber dilated cardiomyopathy, left ventricular chamber size is severely dilated, global left ventricular systolic function is severely decrease, estimated ejection fraction is 15-20%, a Laminated thrombus is visualized in the left ventricular APEX, mild to moderate MR, mild to moderated TR, evidence of moderate pulmonary hypertension, RVSP is calculated at 48 mmHg -Chest pains is actually reproducible/msk/costochondritis and elevated troponin, d/w Dr. Ga, no NSTEMI and I was told to stop the heparin drip, most likely related to CHF: start iv lasix bid and Spironolactone per Dr. Ga. -Laminated LV thrombus, d/w Dr. Ga: treat with Coumadin without iv heparin drip/bridging==>changed to Eliquis -Acute on chronic systolic CHF (congestive heart failure): start iv lasix bid and Spironolactone per Dr. Ga. -Diabetes Mellitus: ADA diet, insulin, accu check -HTN (hypertension): Monitor bp q shift, continue medical management -Transient Afib overnight; already rate controlled, icd and a/c Patient refusing to go home History Interval history: Patient was seen and examined. Follow-up on current diagnosis of chest pains doing better. Overnight uneventful. Patient denies any chest pain, shortness breath, nausea/vomiting or severe headaches. Imaging, nursing note, chart, labs and old chart reviewed. Discussed with patient. Hospitalist Physical - Physical exam Narrative exam: Gen: WDWN, NAD, Awake, Alert, Orientated, bmi 45.8 HEENT: NCAT, EOMI, PERRL, OP Clear Neck: supple, no adenopathy, no thyromegaly, equivocal, JVD CVS/Heart: RRR, normal S1S2, pulses present bilaterally Chest/Lungs: diminished bs bilateral with crackles, Symmetrical chest expansion, good air entry bilaterally, reproducible cw tenderness GI/Abdomen: soft, NTND, good bowel sounds, no guarding or rebound /Bladder: no suprapubic tenderness, no CVA or paraspinal tenderness Extermity/Skin: BLE edema, no obvious rash MSK: FROM x 4 Neuro: CN 2-12 grossly intact, no new focal deficits Psych: calm - Constitutional Vitals: Temp Pulse Resp BP Pulse Ox 97.4 F L 68 18 132/86 99 12/05/18 08:03 12/05/18 09:23 12/05/18 08:03 12/05/18 09:23 12/05/18 04:53 General appearance: Present: no acute distress, obese Results - Labs CBC & Chem 7: 12/04/18 04:28 12/04/18 04:28 Labs: Laboratory Last Values WBC 6.7 K/mm3 (4.5-11.0) 12/04/18 04:28 RBC 4.39 M/mm3 (3.65-5.03) 12/04/18 04:28 Hgb 12.0 gm/dl (10.1-14.3) 12/04/18 04:28 Hct 37.2 % (30.3-42.9) 12/04/18 04:28 MCV 85 fl (79-97) 12/04/18 04:28 MCH 27 pg (28-32) L 12/04/18 04:28 MCHC 32 % (30-34) 12/04/18 04:28 RDW 21.3 % (13.2-15.2) H 12/04/18 04:28 Plt Count 222 K/mm3 (140-440) 12/04/18 04:28 Lymph % (Auto) 15.9 % (13.4-35.0) 12/01/18 12:52 Crosby % (Auto) 7.8 % (0.0-7.3) H 12/01/18 12:52 Eos % (Auto) 1.7 % (0.0-4.3) 12/01/18 12:52 Baso % (Auto) Industrial Equipment [employer]ic 12/01/18 12:52 Lymph # 1.0 K/mm3 (1.2-5.4) L 12/01/18 12:52 Crosby # 0.5 K/mm3 (0.0-0.8) 12/01/18 12:52 Eos # 0.1 K/mm3 (0.0-0.4) 12/01/18 12:52 Baso # 0.1 K/mm3 (0.0-0.1) 12/01/18 12:52 Seg Neutrophils % 73.6 % (40.0-70.0) H 12/01/18 12:52 Seg Neutrophils # 4.8 K/mm3 (1.8-7.7) 12/01/18 12:52 PT 16.8 Sec. (12.2-14.9) H 12/01/18 14:11 INR 1.28 (0.87-1.13) H 12/01/18 14:11 APTT 201.6 Sec. (24.2-36.6) H* 12/01/18 14:11 D-Dimer 1931.82 ng/mlDDU (0-234) H 12/01/18 12:56 Heparin Anti-Xa Level 0.24 U.I./ml (0.3-0.7) L 12/02/18 13:18 Sodium 143 mmol/L (137-145) 12/04/18 04:28 Potassium 4.0 mmol/L (3.6-5.0) D 12/04/18 04:28 Chloride 100.4 mmol/L (98-107) 12/04/18 04:28 Carbon Dioxide 28 mmol/L (22-30) 12/04/18 04:28 Anion Gap 19 mmol/L 12/04/18 04:28 BUN 12 mg/dL (7-17) 12/04/18 04:28 Creatinine 1.0 mg/dL (0.7-1.2) 12/04/18 04:28 Estimated GFR > 60 ml/min 12/04/18 04:28 BUN/Creatinine Ratio 12 % 12/04/18 04:28 Glucose 135 mg/dL (65-100) H 12/04/18 04:28 POC Glucose 94 (70-105) 12/05/18 07:19 Calcium 8.5 mg/dL (8.4-10.2) 12/04/18 04:28 Magnesium 1.40 mg/dL (1.7-2.3) L 12/03/18 05:10 Total Bilirubin 2.80 mg/dL (0.1-1.2) H 12/01/18 12:56 AST 18 units/L (5-40) 12/01/18 12:56 ALT 12 units/L (7-56) 12/01/18 12:56 Alkaline Phosphatase 152 units/L (35-129) H 12/01/18 12:56 Total Creatine Kinase 96 units/L (30-135) 12/01/18 12:56 CK-MB (CK-2) 1.2 ng/mL (0.0-4.0) 12/01/18 12:56 CK-MB (CK-2) Rel Index 1.2 (0-4) 12/01/18 12:56 Troponin T 0.616 ng/mL (0.00-0.029) H* 12/01/18 23:05 NT-Pro-B Natriuret Pep 58263 pg/mL (0-450) H 12/01/18 12:56 Total Protein 6.9 g/dL (6.3-8.2) 12/01/18 12:56 Albumin 2.7 g/dL (3.9-5) L 12/01/18 12:56 Albumin/Globulin Ratio 0.6 % 12/01/18 12:56 Triglycerides 81 mg/dL (2-149) 12/01/18 12:56 Cholesterol 78 mg/dL (50-199) 12/01/18 12:56 LDL Cholesterol Direct 41 mg/dL (50-130) L 12/01/18 12:56 HDL Cholesterol 28 mg/dL (40-59) L 12/01/18 12:56 Cholesterol/HDL Ratio 2.78 % 12/01/18 12:56 HCG, Qual Negative (Negative) 12/01/18 13:51 Urine Color Yellow (Yellow) 12/01/18 14:29 Urine Turbidity Clear (Clear) 12/01/18 14:29 Urine pH 7.0 (5.0-7.0) 12/01/18 14:29 Ur Specific [place] 1.004 (1.003-1.030) 12/01/18 14:29 Urine Protein <15 mg/dl mg/dL (Negative) 12/01/18 14:29 Urine Glucose (UA) Neg mg/dL (Negative) 12/01/18 14:29 Urine Ketones Neg mg/dL (Negative) 12/01/18 14:29 Urine Blood Neg (Negative) 12/01/18 14:29 Urine Nitrite Neg (Negative) 12/01/18 14:29 Urine Bilirubin Neg (Negative) 12/01/18 14:29 Urine Urobilinogen 2.0 mg/dL (<2.0) 12/01/18 14:29 Ur Leukocyte Esterase Neg (Negative) 12/01/18 14:29 Urine WBC (Auto) 2.0 /HPF (0.0-6.0) 12/01/18 14:29 Urine RBC (Auto) 2.0 /HPF (0.0-6.0) 12/01/18 14:29 U Epithel Cells (Auto) 1.0 /HPF (0-13.0) 12/01/18 14:29 Urine Bacteria (Auto) 2+ /HPF (Negative) 12/01/18 14:29 Urine Mucus Few /HPF 12/01/18 14:29
[2018-12-06] MEDS ORDERED: LASIX PO SCH (10:00)
== END 2018-12-05 12:30 | disposition home or self-care (01) | DRG 291 ==
LOC: ED 12:16 → 4A 15:25 → UNDODISIN 12-04 20:27
PROVIDERS: ADMIT Internal Medicine; ATTEND Internal Medicine
PROC: 3E0234Z Introduction of Serum, Toxoid and Vaccine into Muscle, Percutaneous Approach (ICD-10-PCS; principal; 2018-12-02)
DX: I11.0 Hypertensive heart disease with heart failure (principal); E43 Unspecified severe protein-calorie malnutrition; I24.0 Acute coronary thrombosis not resulting in myocardial infarction; Z68.42 Body mass index [BMI] 45.0-49.9, adult; I69.354 Hemiplegia and hemiparesis following cerebral infarction affecting left non-dominant side; I50.23 Acute on chronic systolic (congestive) heart failure; E66.01 Morbid (severe) obesity due to excess calories; I08.1 Rheumatic disorders of both mitral and tricuspid valves; I48.91 Unspecified atrial fibrillation; E11.9 Type 2 diabetes mellitus without complications; I42.0 Dilated cardiomyopathy; Z23 Encounter for immunization; I25.2 Old myocardial infarction; Z86.711 Personal history of pulmonary embolism; Z79.01 Long term (current) use of anticoagulants; Z82.49 Family history of ischemic heart disease and other diseases of the circulatory system; Z83.3 Family history of diabetes mellitus; Z79.82 Long term (current) use of aspirin; Z79.899 Other long term (current) drug therapy; Z95.810 Presence of automatic (implantable) cardiac defibrillator; Z87.891 Personal history of nicotine dependence; Z79.84 Long term (current) use of oral hypoglycemic drugs
CPT/HCPCS: 36415; 71045; 71275; 80048; 80053; 80061; 81001; 82550; 82553; 82962; 83735; 83880; 84484; 84703; 85014; 85018; 85025; 85027; 85049; 85379; 85520; 85610; 85730; 90686; 90732; 93005; 93010; 93306; G0378; J1644; J1815; J1940; J2270; J3475; Q9967

== ENCOUNTER 2019-07-07 01:27 | Inpatient (IN) | payer MEDICAID ==
[2019-07-07] MEDS ORDERED: ATIVAN ONE (01:40)
--- NOTE | 2019-07-07 01:52 | Emergency Department Report ---
ED Neuro Deficit HPI - General Stated Complaint: POSS STROKE Time Seen by Provider: 07/07/19 01:32 Source: EMS, RN notes reviewed Mode of arrival: Stretcher Limitations: Altered Mental Status - History of Present Illness Initial Comments: Mrs. Singh is a 43 yo female with hx of diabetes mellitus, hypertension, CHF, MO, pulmonary embolism, CVA, DVT who presents with inability to speak 15 minutes prior to arrival. Unable to obtain history from patient due to nonverbal status. Did review electronic medical record. Documented history of anticoagulation due to PE DVT. Documented history of previous CVA. History obtained from EMS. stated that he and were sitting at kitchen table. was in her normal state of health today. While drinking water, her face twisted up. She was nonverbal. The episode was brief. She then attempt to walk, she then went limp. noticed spitting. EMS noted twitching on the right side of the face. -: Sudden, minutes(s) (15 minutes before EMS arrival) Location: speech Presenting Symptoms: Present: Altered Mental Status Place: home Severity: severe Quality: constant Improves With: none Worsens With: none On Anticoagulants: Yes Context: sudden onset Treatments Prior to Arrival: none - Related Data Home Medications: Home Medications Medication Instructions Recorded Confirmed Last Taken Rivaroxaban [Xarelto] 20 mg PO DAILY 11/19/14 12/02/18 Unknown Previous Rx's Medication Instructions Recorded Last Taken Type Aspirin EC [Halfprin EC] 81 mg PO QDAY #30 tablet. 08/26/14 Unknown Rx Acetaminophen [Acetaminophen TAB] 650 mg PO Q4H PRN #15 tablet 12/04/18 Unknown Rx Carvedilol [Coreg] 6.25 mg PO BID #30 tablet 12/04/18 Unknown Rx Furosemide [Lasix TAB] 40 mg PO QDAY #30 tablet 12/04/18 Unknown Rx Lisinopril [Zestril TAB] 20 mg PO QDAY #30 tablet 12/04/18 Unknown Rx Spironolactone [Aldactone] 25 mg PO QDAY #30 tablet 12/04/18 Unknown Rx Allergies/Adverse Reactions: Allergies Allergy/AdvReac Type Severity Reaction Status Date / Time No Known Allergies Allergy Verified 12/01/18 12:19 ED Review of Systems ROS: Stated complaint: POSS STROKE Other details as noted in HPI Comment: Unobtainable due to pts medical conditions (altered mental status) ED Past Medical Hx - Past Medical History Previous Medical History?: Yes Hx Hypertension: Yes Hx CVA: Yes (x2. 4 years ago- left side weakness, decreased vision) Hx Heart Attack/AMI: Yes (no stents) Hx Congestive Heart Failure: Yes Hx Diabetes: Yes Hx Deep Vein Thrombosis: Yes Hx Pulmonary Embolism: Yes Hx Arthritis: Yes Hx Asthma: No Hx COPD: No Hx HIV: No Additional medical history: short term memory loss, impaired vision. Intra- abdominal abscess perirectal abscesses PE and DVT CVA cardiomyopathy C. dif ficile colitis - Surgical History Hx Coronary Stent: No Hx Pacemaker: No Hx Internal Defibrillator: Yes (AICD) Additional Surgical History: 4 C-sections, ankle surgery (w/plate)-left - Family History Family history: hypertension - Social History Smoking Status: Former Smoker Substance Use Type: None - Medications Home Medications: Home Medications Medication Instructions Recorded Confirmed Last Taken Type Aspirin EC [Halfprin EC] 81 mg PO QDAY #30 tablet. 08/26/14 12/02/18 Unknown Rx Rivaroxaban [Xarelto] 20 mg PO DAILY 11/19/14 12/02/18 Unknown History Acetaminophen [Acetaminophen TAB] 650 mg PO Q4H PRN #15 tablet 12/04/18 Unknown Rx Carvedilol [Coreg] 6.25 mg PO BID #30 tablet 12/04/18 Unknown Rx Furosemide [Lasix TAB] 40 mg PO QDAY #30 tablet 12/04/18 Unknown Rx Lisinopril [Zestril TAB] 20 mg PO QDAY #30 tablet 12/04/18 Unknown Rx Spironolactone [Aldactone] 25 mg PO QDAY #30 tablet 12/04/18 Unknown Rx ED Neuro Physical Exam - General Limitations: Altered Mental Status General appearance: other (flailing around keeps eyes closed will not follow commands, attempting to get out of stretcher) Suspected Stroke: Yes - Head Head exam: Present: atraumatic, normocephalic - Eye Eye exam: Present: normal appearance, PERRL. Absent: scleral icterus, conjunctival injection - ENT ENT exam: Present: mucous membranes dry - Neck Neck exam: Present: normal inspection, full ROM. Absent: tenderness, meningismus - Respiratory Respiratory exam: Present: normal lung sounds bilaterally. Absent: respiratory distress, wheezes, rales, rhonchi - Cardiovascular Cardiovascular Exam: Present: regular rate, normal rhythm, normal heart sounds. Absent: systolic murmur, diastolic murmur, rubs, gallop - GI/Abdominal GI/Abdominal exam: Present: soft, normal bowel sounds. Absent: distended, tenderness, guarding, rebound - Extremities Exam Extremities exam: Present: normal inspection, other (moves all extremities 4) - Neurological Exam Neurological exam: Present: altered - NIHSS Assessment Interval: Baseline 1a. Level of Consciousness: alert/keenly responsive 1b. LOC Questions: aphasic 1c. LOC Commands: performs no tasks correctly 2. Best Gaze: normal 3. Visual: no visual loss 4. Facial Palsy: normal symmetrical movement 5b. Motor Arm Right: no drift 5a. Motor Arm Left: no drift 6a. Motor Leg Left: no drift 6b. Motor Leg Right: no drift 7. Limb Ataxia: absent 8. Sensory: normal 9. Best Language: mute/global aphasia 10. Dysarthria: mute/anarrthric 11. Extinction/Inattention: no abnormality Total Score: 9 Stroke Severity: Moderate Stroke - Psychiatric Psychiatric exam: Present: normal affect, normal mood - Skin Skin exam: Present: warm, dry, intact, normal color. Absent: rash ED Course Vital Signs 07/07/19 07/07/19 07/07/19 02:00 02:10 02:33 Temperature 98 F Pulse Rate 73 76 Respiratory 17 23 23 Rate Blood Pressure 151/98 Blood Pressure 151/98 131/101 [Left] O2 Sat by Pulse 95 94 94 Oximetry - Reevaluation(s) Reevaluation #1: 07/07/19 02:36 I reassessed the patient after receiving 2 doses of IV lorazepam. I previously witnessed second seizure.. She is awake but drowsy. She is attempting to speak. Her speech is unintelligible. She will follow commands. No obvious neurological deficit. - Lab Data Result diagrams: 07/07/19 01:59 07/07/19 01:59 Lab Results 07/07/19 07/07/19 07/07/19 Range/Units 01:59 01:59 01:59 WBC 5.3 (4.5-11.0) K/mm3 RBC 4.42 (3.65-5.03) M/mm3 Hgb 12.3 (10.1-14.3) gm/dl Hct 38.9 (30.3-42.9) % MCV 88 (79-97) fl MCH 28 (28-32) pg MCHC 32 (30-34) % RDW 21.1 H (13.2-15.2) % Plt Count 134 L (140-440) K/mm3 Lymph % (Auto) 25.0 (13.4-35.0) % Story % (Auto) 9.4 H (0.0-7.3) % Eos % (Auto) 1.9 (0.0-4.3) % Baso % (Auto) 0.8 (0.0-1.8) % Lymph # 1.3 (1.2-5.4) K/mm3 Story # 0.5 (0.0-0.8) K/mm3 Eos # 0.1 (0.0-0.4) K/mm3 Baso # 0.0 (0.0-0.1) K/mm3 Seg Neutrophils % 62.9 (40.0-70.0) % Seg Neutrophils # 3.3 (1.8-7.7) K/mm3 PT 15.0 H (12.2-14.9) Sec. INR 1.21 H (0.87-1.13) APTT 66.1 H* (24.2-36.6) Sec. Thrombin Time 17.3 (15.1-19.6) Sec. Sodium 145 (137-145) mmol/L Potassium 3.5 L (3.6-5.0) mmol/L Chloride 104.9 (98-107) mmol/L Carbon Dioxide 27 (22-30) mmol/L Anion Gap 17 mmol/L BUN 16 (7-17) mg/dL Creatinine 1.0 (0.7-1.2) mg/dL Estimated GFR > 60 ml/min BUN/Creatinine Ratio 16 % Glucose 103 H (65-100) mg/dL Calcium 8.6 (8.4-10.2) mg/dL Troponin T 0.409 H* (0.00-0.029) ng/mL Triglycerides 56 (2-149) mg/dL Cholesterol 111 (50-199) mg/dL LDL Cholesterol Direct 55 (50-130) mg/dL HDL Cholesterol 52 (40-59) mg/dL Cholesterol/HDL Ratio 2.13 % 07/07/19 02:38 EKG obtained 0209 Normal sinus rhythm rate 80 beats a minute rightward axis prolonged QTC no ST elevation nonspecific T wave pattern - Radiology Data Radiology results: report reviewed CT head old infarcts moderate size - Medical Decision Making Mrs. Singh presents with seizure activity and altered mental status. With hx of aphasia and body weakness, must consider CVA leading to seizure. TPA contraindicated with witnessed seizure here in the ED and hx of anticoagulation. Keppra load initiated in the ED. I witnessed the second seizure upon return from CT which involved right facial twitching foaming at the mouth and spitting. ACS with elevated troponin NSTEMI vs cardiomyopathy leading to elevated troponin. Will need serial troponin and cardiology evaluation. No STEMI evident. Patient has been post-ictal with mild improvement in mental status. Did awake with unintelligible speech Admitted to telemetry in fair condition Rectal ASA ordered - Thrombolytic Inclusion/Exclusion Thrombolytic Contraindications: Seizure at Onset, Patient on Anticoagulants Critical Care Time: Yes Critical care time in (mins) excluding proc time.: 45 Critical care attestation.: If time is entered above; I have spent that time in minutes in the direct care of this critically ill patient, excluding procedure time. I came to the bedside immediately to upon patient's arrival upon arrival. Also accompanied patient to CT scan after report from RN of seizure activity. I was informed that patient had facial twitching and repetitive movements of the hands. I asked nurse to bring lorazepam to the CT department. She received IV lorazepam for seizure activity witnessed by nurse and technical specialist cytology. Upon return to emergency department, teleneurologist evaluated patient. I reviewed electronic record. IU was concerned for intracranial hemorrhage. ALSO concern for acute CVA. ED Disposition Clinical Impression: Seizure, ACS (acute coronary syndrome), Acute CVA (cerebrovascular accident) Disposition: [id number] OP ADMIT IP TO THIS HOSP Is pt being admited?: Yes Does the pt Need Aspirin: No Condition: Stable
[2019-07-07] MEDS ORDERED: ATIVAN IV ONE ×2 (01:53→02:14)
--- NOTE | 2019-07-07 02:11 | Emergency Department Report ---
ED Neuro Deficit HPI - General Stated Complaint: POSS STROKE Time Seen by Provider: 07/07/19 01:32 Source: EMS, RN notes reviewed Mode of arrival: Stretcher Limitations: Altered Mental Status - History of Present Illness Initial Comments: [employer] Date of Service: 07/07/2019 01:18:37 Impression: Altered mental status Comments: Concern for seizures with post ictal lethargy based on the witnessed episodes. One while in CT and then the second episode I saw of left facial twitching that looked like seizure activity followed by her being lethargic and not moving again. Given she was reported to have been moving all extremities in between the episodes and prior to the ativan there is no clear new focal weakness. Her prior cortical strokes would be a potential cause for the seizures but recommend further work up. Unclear if she is still taking anticoagulation as she can not answer so would assume that she is based on chart. Metrics: Last Known Well: 07/07/2019 01:00:00 [employer] Notification Time: 07/07/2019 01:17:59 Arrival Time: 07/07/2019 01:27:00 Stamp Time: 07/07/2019 01:18:37 Time First Login Attempt: 07/07/2019 01:21:02 Video Start Time: 07/07/2019 01:21:02 Symptoms: unresponsive NIHSS Start Assessment Time: 07/07/2019 01:54:00 Patient is not a candidate for tPA. Patient was not deemed candidate for tPA thrombolytics because of Current use of CLARA's. Video End Time: 07/07/2019 02:05:59 CT head showed no acute hemorrhage or acute core infarct. CT head was reviewed. Advanced imaging was not obtained as the presentation was not suggestive of Large Vessel Occlusive Disease. ER physician notified of the decision on thrombolytics management. Our recommendations are outlined below. Recommendations: Initiate Aspirin 81 MG Daily Load with Keppra 15 mg/kg Recommended Scan: MRI Head Without Contrast MRA Head and Neck Without Contrast When Available - Stroke Protocol Echocardiogram - Transthoracic Echocardiogram Lipid Panel to Be Obtained, if Not Done in the Last Three Months Therapies: Physical Therapy, Occupational Therapy, Speech Therapy Assessment When Applicable Dysphaghia Screen: Swallow Evaluation, Bedside DVT prophylaxis: SCDs, Pneumatic Compression Disposition: Follow up with Teleneurology Follow up Sign Out: Discussed with Emergency Department Provider History of Present Illness: Patient is a 44 years old Female. Patient was brought by EMS for symptoms of unresponsive 44 yo F with history of stroke, ischemic cardiomyopahty, dm, and PE who is presenting with unresponsiveness. Patient was with her drinking water and then suddenly became unresponsive and was not answering questions. She was shaking all over. EMS report that her BP was 90s/70s. Clinically she had 2 episodes concerning for seizures with facial twitching on the left and in between she was reported to be flailing all extremities. Patient is not able to provide any history. Per chart review she was on Eliquis in 12/2018 due to a left ventricular thrombus. She has a history of medication non-compliance. CT head showed no acute hemorrhage or acute core infarct. CT head was reviewed. Examination: 1A: Level of Consciousness - Movements to Pain + 2 1B: Ask Month and Age - Aphasic + 2 1C: Blink Eyes & Squeeze Hands - Performs 0 Tasks + 2 2: Test Horizontal Extraocular Movements - Normal + 0 3: Test Visual [place] - No Visual Loss + 0 4: Test Facial Palsy (Use Grimace if Obtunded) - Normal symmetry + 0 5A: Test Left Arm Motor Drift - No Effort Against [place] + 3 5B: Test Right Arm Motor Drift - No Effort Against [place] + 3 6A: Test Left Leg Motor Drift - No Effort Against [place] + 3 6B: Test Right Leg Motor Drift - No Effort Against [place] + 3 7: Test Limb Ataxia (FNF/Heel-Martinez) - No Ataxia + 0 8: Test Sensation - Normal; No sensory loss + 0 9: Test Language/Aphasia - Mute/Global Aphasia: No Usable Speech/Auditory Comprehension + 3 10: Test Dysarthria - Mute/Anarthric + 2 11: Test Extinction/Inattention - No abnormality + 0 NIHSS Score: 23 Patient was informed the Neurology Consult would happen via TeleHealth consult by way of interactive audio and video telecommunications and consented to receiving care in this manner. Due to the immediate potential for life-threatening deterioration due to underlying acute neurologic illness, I spent 35 minutes providing critical care. This time includes time for face to face visit via telemedicine, review of medical records, imaging studies and discussion of findings with providers, the patient and/or family. Dr Isabel Franco [employer] Location: speech Place: home Severity: severe Quality: constant Improves With: none Worsens With: none On Anticoagulants: Yes Treatments Prior to Arrival: none - Related Data Home Medications: Home Medications Medication Instructions Recorded Confirmed Last Taken Rivaroxaban [Xarelto] 20 mg PO DAILY 11/19/14 12/02/18 Unknown Previous Rx's Medication Instructions Recorded Last Taken Type Aspirin EC [Halfprin EC] 81 mg PO QDAY #30 tablet. 08/26/14 Unknown Rx Acetaminophen [Acetaminophen TAB] 650 mg PO Q4H PRN #15 tablet 12/04/18 Unknown Rx Carvedilol [Coreg] 6.25 mg PO BID #30 tablet 12/04/18 Unknown Rx Furosemide [Lasix TAB] 40 mg PO QDAY #30 tablet 12/04/18 Unknown Rx Lisinopril [Zestril TAB] 20 mg PO QDAY #30 tablet 12/04/18 Unknown Rx Spironolactone [Aldactone] 25 mg PO QDAY #30 tablet 12/04/18 Unknown Rx Allergies/Adverse Reactions: Allergies Allergy/AdvReac Type Severity Reaction Status Date / Time No Known Allergies Allergy Verified 12/01/18 12:19 ED Review of Systems ROS: Stated complaint: POSS STROKE Other details as noted in HPI ED Past Medical Hx - Past Medical History Previous Medical History?: Yes Hx Hypertension: Yes Hx CVA: Yes (x2. 4 years ago- left side weakness, decreased vision) Hx Heart Attack/AMI: Yes (no stents) Hx Congestive Heart Failure: Yes Hx Diabetes: Yes Hx Deep Vein Thrombosis: Yes Hx Pulmonary Embolism: Yes Hx Arthritis: Yes Hx Asthma: No Hx COPD: No Hx HIV: No Additional medical history: short term memory loss, impaired vision. Intra- abdominal abscess perirectal abscesses PE and DVT CVA cardiomyopathy C. difficile colitis - Surgical History Hx Coronary Stent: No Hx Pacemaker: No Hx Internal Defibrillator: Yes (AICD) Additional Surgical History: 4 C-sections, ankle surgery (w/plate)-left - Social History Smoking Status: Former Smoker Substance Use Type: None - Medications Home Medications: Home Medications Medication Instructions Recorded Confirmed Last Taken Type Aspirin EC [Halfprin EC] 81 mg PO QDAY #30 tablet. 08/26/14 12/02/18 Unknown Rx Rivaroxaban [Xarelto] 20 mg PO DAILY 11/19/14 12/02/18 Unknown History Acetaminophen [Acetaminophen TAB] 650 mg PO Q4H PRN #15 tablet 12/04/18 Unknown Rx Carvedilol [Coreg] 6.25 mg PO BID #30 tablet 12/04/18 Unknown Rx Furosemide [Lasix TAB] 40 mg PO QDAY #30 tablet 12/04/18 Unknown Rx Lisinopril [Zestril TAB] 20 mg PO QDAY #30 tablet 12/04/18 Unknown Rx Spironolactone [Aldactone] 25 mg PO QDAY #30 tablet 12/04/18 Unknown Rx ED Neuro Physical Exam - General Limitations: Altered Mental Status General appearance: other (flailing around keeps eyes closed will not follow commands, attempting to get out of stretcher) Suspected Stroke: No Critical care attestation.: If time is entered above; I have spent that time in minutes in the direct care of this critically ill patient, excluding procedure time. ED Disposition Clinical Impression: Seizure Disposition: DC-[id number] OP ADMIT IP TO THIS HOSP Is pt being admited?: Yes Condition: Stable
[2019-07-07 02:14] LABS: Basophils % (Auto) 0.8 % (0.0-1.8); Eosinophils # (Auto) 0.1 K/mm3 (0.0-0.4); Eosinophils % (Auto) 1.9 % (0.0-4.3); Hematocrit 38.9 % (30.3-42.9); Hemoglobin 12.3 gm/dl (10.1-14.3); Lymphocytes # (Auto) 1.3 K/mm3 (1.2-5.4); Mean Corpuscular HGB Conc 32 % (30-34); Mean Corpuscular Volume 88 fl (79-97); Monocytes # (Auto) 0.5 K/mm3 (0.0-0.8); Monocytes % (Auto) 9.4 % (0.0-7.3); Platelet Count 134 K/mm3 (140-440); Red Blood Count 4.42 M/mm3 (3.65-5.03)
[2019-07-07] MEDS ORDERED: KEPPRA 1,000 MG/NS 0.75% 100ML 1,000 MG/100 ML BAG IV ONE (02:14)
[2019-07-07 02:23] LABS: Red Cell Distribution Width 21.1 % (13.2-15.2)
[2019-07-07 02:35] LABS: INR 1.21 (0.87-1.13)
[2019-07-07 02:36] LABS: Thrombin Time 17.3 Sec. (15.1-19.6)
--- NOTE | 2019-07-07 02:36 | Cat Scan Report ---
CT HEAD WITHOUT CONTRAST INDICATION / CLINICAL INFORMATION: neuro deficits <6hrs or sx present upon awakening. Code stroke protocol. Seizure with history of prev ious stroke. TECHNIQUE: All CT scans at this location are performed using CT dose reduction for ALARA by means of automated e xposure control. COMPARISON: CT dated 08/24/14 FINDINGS: HEMORRHAGE: None. EXTRA-AXIAL SPACES: Normal in size and morphology for the patient's age. VENTRICULAR SYSTEM: Mild ex vacuo dilatation of the occipital horns, unchanged. CEREBRAL PARENCHYMA: Old, bilateral, posterior parieto-occipital infarcts appear unchanged. No defini te acute territorial infarct noted. MIDLINE SHIFT OR HERNIATION: None. CEREBELLUM / BRAINSTEM: No significant abnormality. ORBITS: Normal as visualized. SOFT TISSUES of HEAD: No significant abnormality. CALVARIUM: No significant abnormality. PARANASAL SINUSES / MASTOID AIR CELLS: Normal as visualized. ADDITIONAL FINDINGS: None. IMPRESSION: 1. No acute intracranial abnormality. 2. Old, bilateral parieto-occipital infarcts are unchanged. COMMUNICATION: Time of Communication (FOREIGN LANGUAGE STENOGRAPHER/CDT): 1:32 AM Licensed Practitioner Receiving Report: Dr. Duran in the ED Signer Name: Jony Lyon MD Signed: 07/07/2019 2:31 AM Workstation Name: [id number]
[2019-07-07 02:46] LABS: Partial Thromboplastin Time 66.1 Sec. (24.2-36.6)
[2019-07-07 02:52] LABS: BUN/Creatinine Ratio 16; Blood Urea Nitrogen 16 mg/dL (7-17); Calcium 8.6 mg/dL (8.4-10.2); Hemolysis Index 5
[2019-07-07 03:18] LABS: Chol/HDL Ratio 2.13 %; HDL Cholesterol 52 mg/dL (40-59); LDL Cholesterol,Direct 55 mg/dL (50-130)
[2019-07-07] MEDS ORDERED: ASPIRIN PR ONE (03:54)
--- NOTE | 2019-07-07 04:37 | XRay Report ---
CHEST 1 VIEW 07/07/2019 4:04 AM INDICATION / CLINICAL INFORMATION: CVA seizure tobacco use. COMPARISON: 12/01/18 FINDINGS: SUPPORT DEVICES: None. HEART / MEDIASTINUM: Heart is enlarged but stable. Presternal ICD lead is unchanged. LUNGS / PLEURA: Mild bibasilar densities. No significant pleural effusion. ADDITIONAL FINDINGS: No significant additional findings. IMPRESSION: 1. Cardiomegaly with mild bibasilar densities. Signer Name: Jony Lyon MD Signed: 07/07/2019 4:33 AM Workstation Name: [id number]
[2019-07-07] MEDS ORDERED: ATIVAN IV PRN (05:59)
[2019-07-07 07:41] LABS: Creatine Kinase MB 1.7 ng/mL (0.0-4.0)
--- NOTE | 2019-07-07 08:30 | History and Physical Report ---
History of Present Illness Date of examination: 07/07/19 Date of admission: 07/07/19 03:56 Chief complaint: Altered mental status History of present illness: This is a 44-year old woman with a long standing history of nonischemic cardiomyopathy and has a subcutaneous cardiac defibrillator, on oral anticoagulation with Eliquis for laminated LV thrombus was brought in with altered mental status with seizure like activity with post ictal lethargy based on the witnessed episodes. She noted altered on admission. Head CT scan reports no acute intracranial abnormalities. Chest x-ray shows cardiomegaly but no interstitial edema. There were no reports of chest pain, unusual shortness of breath or palpitations. On review of troponin measurements done November 2018, it appears she has chronic elevated troponin. She is being admitted for further evaluation and Mx. Past History Past Medical History: acute IA, diabetes, heart failure, hypertension, CHF with AICD in place, history of cardiac thrombus Past Surgical History: Social history: . denies: smoking, prescription drug abuse Family history: CAD, diabetes, hypertension Review of System: Unable to obtain as patient postictal Medications and Allergies Allergies Allergy/AdvReac Type Severity Reaction Status Date / Time No Known Allergies Allergy Verified 12/01/18 12:19 Home Medications Medication Instructions Recorded Confirmed Last Taken Type Aspirin EC [Halfprin EC] 81 mg PO QDAY #30 tablet. 08/26/14 12/02/18 Unknown Rx Rivaroxaban [Xarelto] 20 mg PO DAILY 11/19/14 12/02/18 Unknown History Acetaminophen [Acetaminophen TAB] 650 mg PO Q4H PRN #15 tablet 12/04/18 Unknown Rx Carvedilol [Coreg] 6.25 mg PO BID #30 tablet 12/04/18 Unknown Rx Furosemide [Lasix TAB] 40 mg PO QDAY #30 tablet 12/04/18 Unknown Rx Lisinopril [Zestril TAB] 20 mg PO QDAY #30 tablet 12/04/18 Unknown Rx Spironolactone [Aldactone] 25 mg PO QDAY #30 tablet 12/04/18 Unknown Rx Active Meds: Active Medications Lorazepam (Ativan) 1 mg IV Q4H PRN PRN Reason: Seizures Exam - Physical Exam Narrative exam: GENERAL: well-developed and morbidly obese -[place] female lying on bed appeared to be in no discomfort. HEENT: Normocephalic. Atraumatic. No conjunctival congestion or icterus. Patient has moist mucous membranes. NECK: Supple. Trachea midline. CHEST/LUNGS: Clear to auscultated bilaterally, breathing nonlabored. No wheezes crackles or rhonchi. HEART/CARDIOVASCULAR: Regular in rate and rhythm. S1 and S2 positive. ABDOMEN: Abdomen is soft, nontender. Patient has normal bowel sounds. SKIN: There is no rash. Warm and dry. NEURO: Moves all extremities MUSCULOSKELETAL: No joint effusion or tenderness. EXTRIMITY: No edema, no cyanosis or clubbing. PSYCH: Unable to assess. - Constitutional Vitals: Temp Pulse Resp BP Pulse Ox 97.5 F L 64 16 136/89 96 07/07/19 07:36 07/07/19 07:36 07/07/19 07:36 07/07/19 07:36 07/07/19 07:36 Results - Labs CBC & Chem 7: 07/07/19 01:59 07/07/19 01:59 Labs: Abnormal lab results 07/07/19 07/07/19 07/07/19 Range/Units 01:59 01:59 01:59 RDW 21.1 H (13.2-15.2) % Plt Count 134 L (140-440) K/mm3 Zapata % (Auto) 9.4 H (0.0-7.3) % PT 15.0 H (12.2-14.9) Sec. INR 1.21 H (0.87-1.13) APTT 66.1 H* (24.2-36.6) Sec. Potassium 3.5 L (3.6-5.0) mmol/L Glucose 103 H (65-100) mg/dL Troponin T 0.409 H* (0.00-0.029) ng/mL 07/07/19 Range/Units 06:42 RDW (13.2-15.2) % Plt Count (140-440) K/mm3 Zapata % (Auto) (0.0-7.3) % PT (12.2-14.9) Sec. INR (0.87-1.13) APTT (24.2-36.6) Sec. Potassium (3.6-5.0) mmol/L Glucose (65-100) mg/dL Troponin T 0.408 H* (0.00-0.029) ng/mL - Imaging and Cardiology CT Scan - head: report reviewed Assessment and Plan Altered mental status, likely due to postictal lethargy - Continue neurochecks, continue supportive care Acute seizure with postictal lethargy - started on Keppra IV, continue Ativan and IBS needed - CT head without any acute finding - Cannot obtain MRI as patient has ICD in place - Consulted neurologic, will follow recommendation Laminated LV thrombus, - we'll resume anticoagulation with the eliquis Chronic systolic CHF (congestive heart failure) Ef 15-20%: - Has history of nonischemic cardiomyopathy with EF 15-20% - Cardiology consulted, will continue home medications Elevated troponin, chronically elevated - Cardiologic CONSULTED Diabetes Mellitus: - ADA diet, insulin, accu check HTN (hypertension): - Monitor bp q shift, continue medical management Obstructive sleep apnea, CPAP at bedtime Old CVA, continue anticoagulation, statin, neuro check Morbid obesity, dietary recommendations as appropriate when clinically more stable DVT prophylaxis, eliquis CT head: 1. No acute intracranial abnormality. 2. Old, bilateral parieto-occipital infarcts are unchanged.
[2019-07-07] MEDS ORDERED: MILK OF MAGNESIA PO PRN (10:28)
[2019-07-07] MEDS ORDERED: TYLENOL PO PRN (10:28)
[2019-07-07] MEDS ORDERED: PHENERGAN PR PRN (10:28)
[2019-07-07] MEDS ORDERED: DULCOLAX PR PRN (10:28)
[2019-07-07] MEDS ORDERED: ZOFRAN IV PRN (10:28)
[2019-07-07] MEDS ORDERED: REGLAN PO PRN (10:28)
--- NOTE | 2019-07-07 10:36 | Consultation ---
History of Present Illness Consult date: 07/07/19 Consult reason: elevated troponin History of present illness: This is a 44-year old woman with a long standing history of nonischemic cardiomyopathy and has a subcutaneous cardiac defibrillator. Patient is on oral anticoagulation with Eliquis for laminated LV thrombus. Patient was previously managed with warfarin but this was later discontinued by her heddler at [place] due to non-compliance with INR checks. She was brought in with altered mental status, admitted for seizures with post- ictal lethargy. Head CT scan reports no acute intracranial abnormalities. Chest x-ray shows cardiomegaly but no interstitial edema. A cardiac consultation has been requested for elevation of troponin. EKG is sinus rhythm, no acute ischemic changes. There were no reports of chest pain, unusual shortness of breath or palpitations. On review of troponin measurements done November 2018, it appears she has chronic elevated troponin. At that time she had a troponin measurement of 0.616. Medications and Allergies Allergies Allergy/AdvReac Type Severity Reaction Status Date / Time No Known Allergies Allergy Verified 12/01/18 12:19 Home Medications Medication Instructions Recorded Confirmed Last Taken Type Aspirin EC [Halfprin EC] 81 mg PO QDAY #30 tablet. 08/26/14 12/02/18 Unknown Rx Rivaroxaban [Xarelto] 20 mg PO DAILY 11/19/14 12/02/18 Unknown History Acetaminophen [Acetaminophen TAB] 650 mg PO Q4H PRN #15 tablet 12/04/18 Unknown Rx Carvedilol [Coreg] 6.25 mg PO BID #30 tablet 12/04/18 Unknown Rx Furosemide [Lasix TAB] 40 mg PO QDAY #30 tablet 12/04/18 Unknown Rx Lisinopril [Zestril TAB] 20 mg PO QDAY #30 tablet 12/04/18 Unknown Rx Spironolactone [Aldactone] 25 mg PO QDAY #30 tablet 12/04/18 Unknown Rx Active Meds: Active Medications Lorazepam (Ativan) 1 mg IV Q4H PRN PRN Reason: Seizures Physical Examination Vital Signs Temp Pulse Resp BP Pulse Ox 98 F 73 17 151/98 95 07/07/19 02:00 07/07/19 02:00 07/07/19 02:00 07/07/19 02:00 07/07/19 02:00 General appearance: no acute distress, obese Cardiac: Positive: Reg Rate and Rhythm Lungs: Positive: Decreased Breath Sounds Neuro: Positive: Grossly Intact Extremities: Absent: edema Results 07/07/19 01:59 07/07/19 01:59 Cardiac Enzymes 07/07/19 Range/Units 06:42 CK-MB (CK-2) 1.7 (0.0-4.0) ng/mL Coagulation 07/07/19 Range/Units 01:59 PT 15.0 H (12.2-14.9) Sec. INR 1.21 H (0.87-1.13) APTT 66.1 H* (24.2-36.6) Sec. Lipids 07/07/19 Range/Units 01:59 Triglycerides 56 (2-149) mg/dL Cholesterol 111 (50-199) mg/dL HDL Cholesterol 52 (40-59) mg/dL Cholesterol/HDL Ratio 2.13 % CBC 07/07/19 Range/Units 01:59 WBC 5.3 (4.5-11.0) K/mm3 RBC 4.42 (3.65-5.03) M/mm3 Hgb 12.3 (10.1-14.3) gm/dl Hct 38.9 (30.3-42.9) % Plt Count 134 L (140-440) K/mm3 Lymph # 1.3 (1.2-5.4) K/mm3 Child[place] # 0.5 (0.0-0.8) K/mm3 Eos # 0.1 (0.0-0.4) K/mm3 Baso # 0.0 (0.0-0.1) K/mm3 Comprehensive Metabolic Panel 07/07/19 Range/Units 01:59 Sodium 145 (137-145) mmol/L Potassium 3.5 L (3.6-5.0) mmol/L Chloride 104.9 (98-107) mmol/L Carbon Dioxide 27 (22-30) mmol/L BUN 16 (7-17) mg/dL Creatinine 1.0 (0.7-1.2) mg/dL Glucose 103 H (65-100) mg/dL Calcium 8.6 (8.4-10.2) mg/dL Assessment and Plan Seizures with post-ictal lethargy Hx of Laminated LV thrombus on eliquis for oral anticoagulation; patient is not on coumadin due to non- compliance with INR checks. Nonischemic cardiomyopathy, EF 20% Presence of AICD, subcutaneous Obesity
[2019-07-07] MEDS: COLACE PO SCH ×2 (10:42→21:09)
[2019-07-07 12:57] LABS: Creatine Kinase MB 1.6 ng/mL (0.0-4.0)
--- NOTE | 2019-07-07 13:13 | Consultation ---
Medications and Allergies Allergies Allergy/AdvReac Type Severity Reaction Status Date / Time No Known Allergies Allergy Verified 12/01/18 12:19 Home Medications Medication Instructions Recorded Confirmed Last Taken Type Aspirin EC [Halfprin EC] 81 mg PO QDAY #30 tablet. 08/26/14 12/02/18 Unknown Rx Rivaroxaban [Xarelto] 20 mg PO DAILY 11/19/14 12/02/18 Unknown History Acetaminophen [Acetaminophen TAB] 650 mg PO Q4H PRN #15 tablet 12/04/18 Unknown Rx Carvedilol [Coreg] 6.25 mg PO BID #30 tablet 12/04/18 Unknown Rx Furosemide [Lasix TAB] 40 mg PO QDAY #30 tablet 12/04/18 Unknown Rx Lisinopril [Zestril TAB] 20 mg PO QDAY #30 tablet 12/04/18 Unknown Rx Spironolactone [Aldactone] 25 mg PO QDAY #30 tablet 12/04/18 Unknown Rx Active Meds: Active Medications Acetaminophen (Tylenol) 650 mg PO Q4H PRN PRN Reason: Pain, Mild (1-3) Aspirin (Aspirin) 325 mg PO QDAY MAHOGANY Atorvastatin Calcium (Lipitor) 80 mg PO QHS MAHOGANY Bisacodyl (Dulcolax) 10 mg CO QDAY PRN PRN Reason: Constipation Docusate Sodium (Colace) 100 mg PO BID MAHOGANY Famotidine (Pepcid) 10 mg IV BID MAHOGANY Lorazepam (Ativan) 1 mg IV Q4H PRN PRN Reason: Seizures Magnesium Hydroxide (Milk Of Magnesia) 30 ml PO Q4H PRN PRN Reason: Constipation Metoclopramide HCl (Reglan) 10 mg PO Q6H PRN PRN Reason: Nausea And Vomiting Ondansetron HCl (Zofran) 4 mg IV Q8H PRN PRN Reason: Nausea And Vomiting Promethazine HCl (Phenergan) 25 mg CO Q6H PRN PRN Reason: Nausea And Vomiting Sodium Chloride (Sodium Chloride Flush Syringe 10 Ml) 10 ml IV PRN PRN PRN Reason: LINE FLUSH Physical Examination - Vital Signs Vital Signs: Vital Signs Temp Pulse Resp BP Pulse Ox 98 F 73 17 151/98 95 07/07/19 02:00 07/07/19 02:00 07/07/19 02:00 07/07/19 02:00 07/07/19 02:00 Results - Laboratory Findings CBC and BMP: 07/07/19 01:59 07/07/19 01:59 Abnormal Lab Findings: Abnormal Labs 07/07/19 07/07/19 07/07/19 01:59 01:59 01:59 RDW 21.1 H Plt Count 134 L Esmeralda % (Auto) 9.4 H PT 15.0 H INR 1.21 H APTT 66.1 H* Potassium 3.5 L Glucose 103 H Troponin T 0.409 H* 07/07/19 06:42 RDW Plt Count Esmeralda % (Auto) PT INR APTT Potassium Glucose Troponin T 0.408 H* Assessment and Plan 44 YEAR OLD FEMALE WITH HIST OF HYPERTENSION, DVT,CHF,CAD, NM, OLD STROKE WITH RESIDUAL LEFT JL PARESIS WHO HAS BEEN OS ASPIRIN,STATIN AND, XARELTO NOT CONSISTENTLY BECAUSE OF THE EXPENSE DEVELOPED AN EPISODE OF SHAKING HER LEFT UPPER EXTREMIY AND FACIAL TWITCHING ON THE LEFT SIDE WHICH LASTED FOR 10 TO 15 MINUTES AND WAS FOLLOWED BY POST ICTAL CONFUSION AND LETHARGY, PATIENT DEVELOPED ANOTHER EPISODE OF FACIAL TWITCHING WHILE IN THE ER FOLLOWED BY POST ICTAL LETHARY. PATIENT IS TAKING ASPIRIN AND STATIN REGULARLY, HOWEVER SHE WAS NOT TAKING XARELTO REGULARLY IT WAS VERY EXPENSIVE,SHE WAS ALSO PRES CRIBED APIAXABAN WHICH SHE IS TAKING NOW AND AGAIN NOT CONSISTENTLY DUE TO EXPENSE ISSUES. PATIENT HAS ELEVATED TROPONIN FOR SHE IS CARDIOLOGY IS ALSO INVOLVED DURING THE PRESENT ADMISSION. PHYSICAL EXAMINATION- GENERAL- PATIENT SEEMS LITTLE DROWSY BUT WAS ABLE TO COMMUNICATE APPROPRIATELY,NORMAL MENTAL STATUS ENT- HAS DENTAL OCCLUSION OVERBITE WITH REDUNDANT TISSUE IN THE [place] PHARYNGEAL SPACE. HEART-NORMAL RATE AND RYTHM, CAROTID-BOTH PALPABLE, CRANIAL NERVES-ALL CRANIAL NERVES ARE WITH IN NORMAL LIMIT,NO FACIAL ASYMMETRY OR WEAKNESS, PUPILS REACT TO LIGHT,EXTRA OCULAR MOVEMENT IS INTACT MOTOR- MILD WEAKNESS OF LEFT UPPER AND LOWER EXTREMITIES. REFLEXES- SLIGHTLY INCREASED ON THE LEFT SIDE WITH UP GOING TOE ON THE LEFT. SENSORY -SENSORY EXAMINATION IS GROSSLY WITH IN NORMAL LIMIT IMPRESSION 1. PATIENT SEEMS TO HAVE HAD A SEIZURE, SHE WAS AT A RISK FOR SEIZURE DUE TO PREVIOUS STROKE 2. SHE ALSO HAS OBSTRUCTIVE SLEEP APNEA RECOMMEND. 1. PLEASE START HER ON KEPPRA 500 MG PO BID 2.MRI OF BRAIN, NO WORK UP FOR STROKE IS NEEDED AT PRESENT. 3, PATIENT SHOULD BE PLACED ON COUMADIN BECAUSE OF COMPLIANCE ISSUE FROM AFFORDABILITY I TALKED WITH HER , AND HE WANTS HER TO BE ON COUMADIN. 4. CONTINUE ASPIRIN AND STATIN PRESCRIBED.
[2019-07-07] MEDS ORDERED: COUMADIN PO SCH (17:00)
[2019-07-07] MEDS: PEPCID IV SCH ×2 (18:49→21:09)
[2019-07-07] MEDS: COREG PO SCH (21:08)
[2019-07-07] MEDS: KEPPRA 750 MG in D5W 100 ML IV SCH (22:58)
[2019-07-08 06:06] LABS: INR 1.23 (0.87-1.13)
[2019-07-08] MEDS ORDERED: ASPIRIN PO SCH (10:00)
--- NOTE | 2019-07-08 10:39 | Progress Note ---
Assessment and Plan Seizures with post-ictal lethargy Hx of Laminated LV thrombus on eliquis for oral anticoagulation as outpatient changed to warfarin this admission for financial reasons Non-specific troponin Nonischemic cardiomyopathy, EF 20% Presence of AICD, subcutaneous Obesity Recommendations: Target INR 2-3 Compliance with INR checks stressed with Patient follows with Dr Ayoub at [place] - she will need a home INR machine arranged after discharge No new cardiac recommendations Subjective Date of service: 07/08/19 Principal diagnosis: Seizure Interval history: No cardiac events overnight Objective Vital Signs Temp Pulse Pulse Resp BP Pulse Ox 07/08/19 08:09 98.1 F 71 18 161/100 92 07/08/19 06:10 155/103 07/08/19 03:41 98.0 F 77 20 167/103 91 07/07/19 23:53 98.0 F 67 20 148/103 100 07/07/19 23:05 99 07/07/19 21:08 67 168/112 07/07/19 20:56 67 18 100 07/07/19 19:52 71 07/07/19 19:25 98.2 F 67 18 168/112 100 07/07/19 17:06 98 07/07/19 16:44 97.6 F 76 16 144/96 97 07/07/19 13:06 72 07/07/19 11:59 97.8 F 68 16 125/82 98 - Physical Examination General: Other (Lethargic) Cardiac: Positive: Reg Rate and Rhythm Lungs: Positive: Normal Exam Neuro: Positive: Grossly Intact Extremities: Absent: edema - Labs and Meds Cardiac Enzymes 07/07/19 Range/Units 11:46 CK-MB (CK-2) 1.6 (0.0-4.0) ng/mL Coagulation 07/08/19 Range/Units 05:00 PT 15.2 H (12.2-14.9) Sec. INR 1.23 H (0.87-1.13)
[2019-07-08] MEDS: ZESTRIL PO SCH (10:44)
[2019-07-08] MEDS: ALDACTONE PO SCH (10:45)
[2019-07-08] MEDS: LASIX PO SCH (10:45)
[2019-07-08] MEDS: COREG PO SCH ×2 (10:45→22:56)
[2019-07-08] MEDS: HALFPRIN EC PO SCH (10:46)
[2019-07-08] MEDS: COLACE PO SCH ×2 (10:46→22:56)
[2019-07-08] MEDS: PEPCID IV SCH ×2 (10:52→22:55)
[2019-07-08] MEDS: KEPPRA 750 MG in D5W 100 ML IV SCH ×2 (11:21→22:56)
[2019-07-08] MEDS ORDERED: AFLURIA QUAD 2019-2020 (3YR UP) IM ONE (12:00)
[2019-07-08] MEDS ORDERED: POTASSIUM CHLORIDE FEEDTUBE ONE (12:44)
[2019-07-08] MEDS: KCL 10MEQ/100ML 10 MEQ/100 ML BAG IV SCH ×2 (15:14→16:19)
--- NOTE | 2019-07-08 17:26 | Progress Note ---
Assessment and Plan Assessment and plan: Altered mental status, likely due to postictal lethargy - Continue neurochecks, continue supportive care Acute seizure with postictal lethargy - started on Keppra IV, continue Ativan and IBS needed - CT head without any acute finding - Cannot obtain MRI as patient has ICD in place - Consulted neurologic, will follow recommendation Laminated LV thrombus, - we'll resume anticoagulation with the eliquis Chronic systolic CHF (congestive heart failure) Ef 15-20%: - Has history of nonischemic cardiomyopathy with EF 15-20% - Cardiology consulted, will continue home medications Elevated troponin, chronically elevated - Cardiologic CONSULTED Diabetes Mellitus: - ADA diet, insulin, accu check HTN (hypertension): - Monitor bp q shift, continue medical management Obstructive sleep apnea, CPAP at bedtime Old CVA, continue anticoagulation, statin, neuro check Morbid obesity, dietary recommendations as appropriate when clinically more stable DVT prophylaxis, eliquis CT head: 1. No acute intracranial abnormality. 2. Old, bilateral parieto-occipital infarcts are unchanged. History Interval history: Patient seen and examined the medical records reviewed Patient is very lethargic, noncommunicative, responding to deep stimuli Vital signs reviewed, stable Not in acute distress Hospitalist Physical - Constitutional Vitals: Temp Pulse Resp BP Pulse Ox 98.1 F 71 18 161/100 92 07/08/19 08:09 07/08/19 10:45 07/08/19 08:09 07/08/19 10:45 07/08/19 08:09 General appearance: Present: no acute distress, obese, other ( lethargic noncommunicative) - EENT Eyes: Present: PERRL, EOM intact - Neck Neck: Present: supple, normal ROM - Respiratory Respiratory effort: normal Respiratory: bilateral: diminished, negative: rales, rhonchi, wheezing - Cardiovascular Rhythm: regular Heart Sounds: Present: S1 & S2 - Extremities Extremities: no ischemia, No edema - Abdominal General gastrointestinal: soft, non-tender, non-distended, normal bowel sounds - Integumentary Integumentary: Present: clear, warm - Psychiatric Psychiatric: other (lethargy confused) - Neurologic Neurologic: moves all extremities Results - Labs CBC & Chem 7: 07/07/19 01:59 07/07/19 01:59 Labs: Laboratory Last Values WBC 5.3 K/mm3 (4.5-11.0) 07/07/19 01:59 RBC 4.42 M/mm3 (3.65-5.03) 07/07/19 01:59 Hgb 12.3 gm/dl (10.1-14.3) 07/07/19 01:59 Hct 38.9 % (30.3-42.9) 07/07/19 01:59 MCV 88 fl (79-97) 07/07/19 01:59 MCH 28 pg (28-32) 07/07/19 01:59 MCHC 32 % (30-34) 07/07/19 01:59 RDW 21.1 % (13.2-15.2) H 07/07/19 01:59 Plt Count 134 K/mm3 (140-440) L 07/07/19 01:59 Lymph % (Auto) 25.0 % (13.4-35.0) 07/07/19 01:59 Holt % (Auto) 9.4 % (0.0-7.3) H 07/07/19 01:59 Eos % (Auto) 1.9 % (0.0-4.3) 07/07/19 01:59 Baso % (Auto) 0.8 % (0.0-1.8) 07/07/19 01:59 Lymph # 1.3 K/mm3 (1.2-5.4) 07/07/19 01:59 Holt # 0.5 K/mm3 (0.0-0.8) 07/07/19 01:59 Eos # 0.1 K/mm3 (0.0-0.4) 07/07/19 01:59 Baso # 0.0 K/mm3 (0.0-0.1) 07/07/19 01:59 Seg Neutrophils % 62.9 % (40.0-70.0) 07/07/19 01:59 Seg Neutrophils # 3.3 K/mm3 (1.8-7.7) 07/07/19 01:59 PT 15.2 Sec. (12.2-14.9) H 07/08/19 05:00 INR 1.23 (0.87-1.13) H 07/08/19 05:00 APTT 66.1 Sec. (24.2-36.6) H* 07/07/19 01:59 Thrombin Time 17.3 Sec. (15.1-19.6) 07/07/19 01:59 Sodium 145 mmol/L (137-145) 07/07/19 01:59 Potassium 3.5 mmol/L (3.6-5.0) L 07/07/19 01:59 Chloride 104.9 mmol/L (98-107) 07/07/19 01:59 Carbon Dioxide 27 mmol/L (22-30) 07/07/19 01:59 Anion Gap 17 mmol/L 07/07/19 01:59 BUN 16 mg/dL (7-17) 07/07/19 01:59 Creatinine 1.0 mg/dL (0.7-1.2) 07/07/19 01:59 Estimated GFR > 60 ml/min 07/07/19 01:59 BUN/Creatinine Ratio 16 % 07/07/19 01:59 Glucose 103 mg/dL (65-100) H 07/07/19 01:59 POC Glucose 113 (70-105) H 07/08/19 13:18 Calcium 8.6 mg/dL (8.4-10.2) 07/07/19 01:59 Total Creatine Kinase 51 units/L (30-135) 07/07/19 11:46 CK-MB (CK-2) 1.6 ng/mL (0.0-4.0) 07/07/19 11:46 CK-MB (CK-2) Rel Index 3.1 (0-4) 07/07/19 11:46 Troponin T 0.412 ng/mL (0.00-0.029) H* 07/07/19 11:46 Triglycerides 56 mg/dL (2-149) 07/07/19 01:59 Cholesterol 111 mg/dL (50-199) 07/07/19 01:59 LDL Cholesterol Direct 55 mg/dL (50-130) 07/07/19 01:59 HDL Cholesterol 52 mg/dL (40-59) 07/07/19 01:59 Cholesterol/HDL Ratio 2.13 % 07/07/19 01:59 Active Medications - Current Medications Current Medications: Generic Name Dose Route Start Last Admin Trade Name Freq PRN Reason Stop Dose Admin Acetaminophen 650 mg 07/07/19 16:36 Tylenol PO Q4H PRN Pain MILD(1-3)/Fever >100.5/OAKES Aspirin 81 mg 07/08/19 10:00 07/08/19 10:46 Halfprin Ec PO 81 mg QDAY MAHOGANY Administration Atorvastatin Calcium 80 mg 07/07/19 22:00 07/07/19 21:09 Lipitor PO 80 mg QHS MAHOGANY Administration Bisacodyl 10 mg 07/07/19 10:28 Dulcolax MT QDAY PRN Constipation Carvedilol 6.25 mg 07/07/19 22:00 07/08/19 10:45 Coreg PO 6.25 mg BID MAHOGANY Administration Docusate Sodium 100 mg 07/07/19 11:00 07/08/19 10:46 Colace PO 100 mg BID MAHOGANY Administration Famotidine 10 mg 07/07/19 11:30 07/08/19 10:52 Pepcid IV 10 mg BID MAHOGANY Administration Furosemide 40 mg 07/08/19 10:00 07/08/19 10:45 Lasix PO 40 mg QDAY MAHOGANY Administration Hydralazine HCl 5 mg 07/08/19 05:50 Apresoline IV Q6H PRN Hypertension Levetiracetam 750 mg/ Dextrose 107.5 mls @ 400 mls/hr 07/07/19 22:00 07/08/19 11:21 IV 400 mls/hr Q12HR MAHOGANY Administration Lisinopril 20 mg 07/08/19 10:00 07/08/19 10:44 Zestril PO 20 mg QDAY MAHOGANY Administration Magnesium Hydroxide 30 ml 07/07/19 10:28 Milk Of Magnesia PO Q4H PRN Constipation Metoclopramide HCl 10 mg 07/07/19 10:28 Reglan PO Q6H PRN Nausea And Vomiting Ondansetron HCl 4 mg 07/07/19 10:28 Zofran IV Q8H PRN Nausea And Vomiting Promethazine HCl 25 mg 07/07/19 10:28 Phenergan MT Q6H PRN Nausea And Vomiting Sodium Chloride 10 ml 07/07/19 10:28 Sodium Chloride Flush Syringe 10 Ml IV PRN PRN LINE FLUSH Spironolactone 25 mg 07/08/19 10:00 07/08/19 10:45 Aldactone PO 25 mg QDAY MAHOGANY Administration Warfarin Sodium 7.5 mg 07/08/19 18:00 Coumadin PO DAILY@1700 [facility] Protocol Nutrition/Malnutrition Assess - Dietary Evaluation Nutrition/Malnutrition Findings: Nutrition Notes Start: 07/07/19 11:18 Freq: Status: Active Protocol: Document 07/08/19 10:43 PS (Rec: 07/08/19 11:07 PS [id number]) Co-Sign 07/08/19 10:43 LM Nutrition Notes Need for Assessment generated from: MD Order,Education Initial or Follow up Brief Note Current Diagnosis Diabetes,Hypertension,Heart Failure,Stroke Other Pertinent Diagnosis DVT, UT, pulmonary embolism, seizures Current Diet Mechanical Soft Pertinent Medications Coumadin Subjective/Other Information Pt. lethargic at time of visit , but at bedside. states pt. has been on coumadin before and she knows what it is. took Vitamin K and Medication handout. Nutrition Intervention Teaching Recipient Spouse Learning Readiness Good Teaching Methods Handout Response to Teaching Verbalize understanding Education Handouts Provided Vitamin K and Medication Barriers to Learning Cognitive/Verbal RD phone number provided Yes Patient aware of follow up options Yes Revisit per MD consult or patient Sign Off request:
[2019-07-08] MEDS: COUMADIN PO SCH (17:42)
--- NOTE | 2019-07-08 18:18 | Progress Note ---
Assessment and Plan 44 YEAR OLD FEMALE WITH HIST OF HTN, STROKE, CHF,VT WHO WAS ON XARELTO AND HAD DIFFICULTY WITH MEDICATION COMPLIANCE DUE TO XARELTO BEING VERY EXPENSIVE CAME IN WITH SEIZURE. NO RECURRENCE OF SEIZURE SINCE SHE WAS GIVEN KEPPRA., PATIENT A ND HER WAS COUNSELED IN DETAIL ABOUT THE BENEFIT OF SWITCHING TO COUMADIN, THEY EXPRESSED INTEREST.SHE FEELS LITTLE LETHARGIC WHICH IS MOST LIKELY DUE TO OBSTRUCTIVE SLEEP APNEA. PHYSICAL EXAMINATION-PATIENT IS ALERT AND APPROPRIATE, HAS INSIGHT INTO HER CONDITION AND ANSWERS QUESTIONS APPROPRIATELY HEART-NORMAL RATE AND RHYTHM, CAROTIDS-BOTH PALPABLE, CRANIAL NERVES -ALL WITH IN NORMAL LIMIT. MOTOR MILD WEAKNESS ON LEFT UPPER AND LOWER EXTREMITIES ( FROM OLD STROKE), SENSORY- GROSSLY WITH IN NORMAL LIMIT, IMPRESSION. 1. SEIZURE ONSET IN A BACK GROUND OF STROKE WITH POSSIBILITY OF RECURRENCE IF NOT MEDICATED. 2. OBSTRUCTIVE SLEEP APNEA RECOMMEND 1. FROM NEURO STAND POINT PATIENT MAY BE DISCHARGED ON COUMADIN WHEN INR IS THERAPEUTIC 2, PATIENT SHOULD GET A SLEEP STUDY OUT PATIENT. 3. SHOULD BE ADVISED TO AVOID BROCCOLI,NICK GREEN AND SPINACH WHILE ON COUMADIN Subjective Principal diagnosis: Seizure Objective - Vital Sign Vital Signs - 12hr 07/08/19 07/08/19 07/08/19 06:10 08:00 08:09 Temperature 98.1 F Pulse Rate 71 Respiratory 18 18 Rate Blood Pressure 155/103 161/100 O2 Sat by Pulse 98 92 Oximetry 07/08/19 07/08/19 07/08/19 10:00 10:44 10:45 Temperature Pulse Rate 62 71 71 Respiratory Rate Blood Pressure 161/100 161/100 O2 Sat by Pulse Oximetry - Laboratory Findings CBC and BMP: 07/07/19 01:59 07/07/19 01:59 Abnormal Lab Findings: Abnormal Labs 07/07/19 07/07/19 07/07/19 01:35 01:59 01:59 RDW 21.1 H Plt Count 134 L [place] % (Auto) 9.4 H PT 15.0 H INR 1.21 H APTT 66.1 H* Potassium Glucose POC Glucose 109 H Troponin T 07/07/19 07/07/19 07/07/19 01:59 06:42 11:46 RDW Plt Count [place] % (Auto) PT INR APTT Potassium 3.5 L Glucose 103 H POC Glucose Troponin T 0.409 H* 0.408 H* 0.412 H* 07/08/19 07/08/19 05:00 13:18 RDW Plt Count [place] % (Auto) PT 15.2 H INR 1.23 H APTT Potassium Glucose POC Glucose 113 H Troponin T
[2019-07-09 05:07] LABS: INR 1.25 (0.87-1.13)
[2019-07-09] MEDS: TYLENOL PO PRN ×2 (08:09→22:08)
--- NOTE | 2019-07-09 09:56 | Progress Note ---
Assessment and Plan Assessment and plan: Altered mental status, likely due to postictal lethargy - Continue neurochecks, continue supportive care Acute seizure with postictal lethargy - started on Keppra IV, continue Ativan and IBS needed - CT head without any acute finding - Cannot obtain MRI as patient has ICD in place - Consulted neurologic, will follow recommendation Laminated LV thrombus, - we'll resume anticoagulation with the eliquis Chronic systolic CHF (congestive heart failure) Ef 15-20%: - Has history of nonischemic cardiomyopathy with EF 15-20% - Cardiology consulted, will continue home medications Elevated troponin, chronically elevated - Cardiologic CONSULTED Diabetes Mellitus: - ADA diet, insulin, accu check HTN (hypertension): - Monitor bp q shift, continue medical management Obstructive sleep apnea, CPAP at bedtime Old CVA, continue anticoagulation, statin, neuro check Morbid obesity, dietary recommendations as appropriate when clinically more stable DVT prophylaxis, eliquis CT head: 1. No acute intracranial abnormality. 2. Old, bilateral parieto-occipital infarcts are unchanged. History Interval history: She is noncommunicative ,Lethergic,sleeping Responding only to deep stimuli Vital Signs noted No new episodes of seizures Hospitalist Physical - Constitutional Vitals: Temp Pulse Resp BP Pulse Ox 97.6 F 63 20 150/99 96 07/09/19 08:11 07/09/19 08:11 07/09/19 08:11 07/09/19 08:11 07/09/19 08:11 General appearance: Present: no acute distress, well-nourished, obese - EENT Eyes: Present: PERRL, EOM intact - Neck Neck: Present: supple, normal ROM - Respiratory Respiratory effort: normal Respiratory: bilateral: diminished, negative: rales, rhonchi, wheezing - Cardiovascular Rhythm: regular Heart Sounds: Present: S1 & S2 - Extremities Extremities: no ischemia, No edema - Abdominal General gastrointestinal: soft, non-tender, non-distended, normal bowel sounds - Integumentary Integumentary: Present: clear, warm - Psychiatric Psychiatric: appropriate mood/affect, cooperative - Neurologic Neurologic: CNII-XII intact, moves all extremities Results - Labs CBC & Chem 7: 07/07/19 01:59 07/07/19 01:59 Labs: Laboratory Last Values WBC 5.3 K/mm3 (4.5-11.0) 07/07/19 01:59 RBC 4.42 M/mm3 (3.65-5.03) 07/07/19 01:59 Hgb 12.3 gm/dl (10.1-14.3) 07/07/19 01:59 Hct 38.9 % (30.3-42.9) 07/07/19 01:59 MCV 88 fl (79-97) 07/07/19 01:59 MCH 28 pg (28-32) 07/07/19 01:59 MCHC 32 % (30-34) 07/07/19 01:59 RDW 21.1 % (13.2-15.2) H 07/07/19 01:59 Plt Count 134 K/mm3 (140-440) L 07/07/19 01:59 Lymph % (Auto) 25.0 % (13.4-35.0) 07/07/19 01:59 [place] % (Auto) 9.4 % (0.0-7.3) H 07/07/19 01:59 Eos % (Auto) 1.9 % (0.0-4.3) 07/07/19 01:59 Baso % (Auto) 0.8 % (0.0-1.8) 07/07/19 01:59 Lymph # 1.3 K/mm3 (1.2-5.4) 07/07/19 01:59 [place] # 0.5 K/mm3 (0.0-0.8) 07/07/19 01:59 Eos # 0.1 K/mm3 (0.0-0.4) 07/07/19 01:59 Baso # 0.0 K/mm3 (0.0-0.1) 07/07/19 01:59 Seg Neutrophils % 62.9 % (40.0-70.0) 07/07/19 01:59 Seg Neutrophils # 3.3 K/mm3 (1.8-7.7) 07/07/19 01:59 PT 15.4 Sec. (12.2-14.9) H 07/09/19 04:09 INR 1.25 (0.87-1.13) H 07/09/19 04:09 APTT 66.1 Sec. (24.2-36.6) H* 07/07/19 01:59 Thrombin Time 17.3 Sec. (15.1-19.6) 07/07/19 01:59 Sodium 145 mmol/L (137-145) 07/07/19 01:59 Potassium 3.5 mmol/L (3.6-5.0) L 07/07/19 01:59 Chloride 104.9 mmol/L (98-107) 07/07/19 01:59 Carbon Dioxide 27 mmol/L (22-30) 07/07/19 01:59 Anion Gap 17 mmol/L 07/07/19 01:59 BUN 16 mg/dL (7-17) 07/07/19 01:59 Creatinine 1.0 mg/dL (0.7-1.2) 07/07/19 01:59 Estimated GFR > 60 ml/min 07/07/19 01:59 BUN/Creatinine Ratio 16 % 07/07/19 01:59 Glucose 103 mg/dL (65-100) H 07/07/19 01:59 POC Glucose 113 (70-105) H 07/08/19 13:18 Calcium 8.6 mg/dL (8.4-10.2) 07/07/19 01:59 Total Creatine Kinase 51 units/L (30-135) 07/07/19 11:46 CK-MB (CK-2) 1.6 ng/mL (0.0-4.0) 07/07/19 11:46 CK-MB (CK-2) Rel Index 3.1 (0-4) 07/07/19 11:46 Troponin T 0.412 ng/mL (0.00-0.029) H* 07/07/19 11:46 Triglycerides 56 mg/dL (2-149) 07/07/19 01:59 Cholesterol 111 mg/dL (50-199) 07/07/19 01:59 LDL Cholesterol Direct 55 mg/dL (50-130) 07/07/19 01:59 HDL Cholesterol 52 mg/dL (40-59) 07/07/19 01:59 Cholesterol/HDL Ratio 2.13 % 07/07/19 01:59 Active Medications - Current Medications Current Medications: Generic Name Dose Route Start Last Admin Trade Name Freq PRN Reason Stop Dose Admin Acetaminophen 650 mg 07/07/19 16:36 07/09/19 08:09 Tylenol PO 650 mg Q4H PRN Administration Pain MILD(1-3)/Fever >100.5/OAKES Aspirin 81 mg 07/08/19 10:00 07/08/19 10:46 Halfprin Ec PO 81 mg QDAY MAHOGANY Administration Atorvastatin Calcium 80 mg 07/07/19 22:00 07/08/19 22:55 Lipitor PO 80 mg QHS MAHOGANY Administration Bisacodyl 10 mg 07/07/19 10:28 Dulcolax [place] QDAY PRN Constipation Carvedilol 6.25 mg 07/07/19 22:00 07/08/19 22:56 Coreg PO 6.25 mg BID MAHOGANY Administration Docusate Sodium 100 mg 07/07/19 11:00 07/08/19 22:56 Colace PO 100 mg BID MAHOGANY Administration Famotidine 10 mg 07/07/19 11:30 07/08/19 22:55 Pepcid IV 10 mg BID MAHOGANY Administration Furosemide 40 mg 07/08/19 10:00 07/08/19 10:45 Lasix PO 40 mg QDAY MAHOGANY Administration Hydralazine HCl 5 mg 07/08/19 05:50 Apresoline IV Q6H PRN Hypertension Levetiracetam 750 mg/ Dextrose 107.5 mls @ 400 mls/hr 07/07/19 22:00 07/08/19 22:56 IV 400 mls/hr Q12HR MAHOGANY Administration Lisinopril 20 mg 07/08/19 10:00 07/08/19 10:44 Zestril PO 20 mg QDAY MAHOGANY Administration Magnesium Hydroxide 30 ml 07/07/19 10:28 Milk Of Magnesia PO Q4H PRN Constipation Metoclopramide HCl 10 mg 07/07/19 10:28 Reglan PO Q6H PRN Nausea And Vomiting Ondansetron HCl 4 mg 07/07/19 10:28 Zofran IV Q8H PRN Nausea And Vomiting Promethazine HCl 25 mg 07/07/19 10:28 Phenergan [place] Q6H PRN Nausea And Vomiting Sodium Chloride 10 ml 07/07/19 10:28 Sodium Chloride Flush Syringe 10 Ml IV PRN PRN LINE FLUSH Spironolactone 25 mg 07/08/19 10:00 07/08/19 10:45 Aldactone PO 25 mg QDAY MAHOGANY Administration Warfarin Sodium 7.5 mg 07/08/19 18:00 07/08/19 17:42 Coumadin PO 7.5 mg DAILY@1700 [facility] Administration Protocol Nutrition/Malnutrition Assess - Dietary Evaluation Nutrition/Malnutrition Findings: Nutrition Notes Start: 07/07/19 11:18 Freq: Status: Active Protocol: Document 07/08/19 10:43 PS (Rec: 07/08/19 11:07 PS [id number]) Co-Sign 07/08/19 10:43 LM Nutrition Notes Need for Assessment generated from: MD Order,Education Initial or Follow up Brief Note Current Diagnosis Diabetes,Hypertension,Heart Failure,Stroke Other Pertinent Diagnosis DVT, [place], pulmonary embolism, seizures Current Diet Mechanical Soft Pertinent Medications Coumadin Subjective/Other Information Pt. lethargic at time of visit , but at bedside. states pt. has been on coumadin before and she knows what it is. took Vitamin K and Medication handout. Nutrition Intervention Teaching Recipient Spouse Learning Readiness Good Teaching Methods Handout Response to Teaching Verbalize understanding Education Handouts Provided Vitamin K and Medication Barriers to Learning Cognitive/Verbal RD phone number provided Yes Patient aware of follow up options Yes Revisit per MD consult or patient Sign Off request:
[2019-07-09] MEDS: KEPPRA 750 MG in D5W 100 ML IV SCH (10:36)
[2019-07-09] MEDS: PEPCID IV SCH ×2 (10:40→22:09)
[2019-07-09] MEDS: HALFPRIN EC PO SCH (10:40)
[2019-07-09] MEDS: COLACE PO SCH ×2 (10:40→22:08)
[2019-07-09] MEDS: COREG PO SCH ×2 (10:42→22:08)
[2019-07-09] MEDS: LASIX PO SCH (10:42)
[2019-07-09] MEDS: ALDACTONE PO SCH (10:42)
[2019-07-09] MEDS: ZESTRIL PO SCH (10:42)
--- NOTE | 2019-07-09 11:46 | Progress Note ---
Subjective Date of service: 07/09/19 Principal diagnosis: Seizure Interval history: Assessment and Plan Seizures with post-ictal lethargy Hx of Laminated LV thrombus on eliquis for oral anticoagulation as outpatient changed to warfarin this admission for financial reasons Non-specific troponin Nonischemic cardiomyopathy, EF 20% Presence of AICD, subcutaneous Obesity Recommendations: Target INR 2-3 Compliance with INR checks stressed with Patient follows with Dr Ayoub at [place] - she will need a home INR machine arranged after discharge No new cardiac recommendations Objective Vital Signs Temp Pulse Resp BP BP Pulse Ox 07/09/19 10:42 82 150/99 07/09/19 08:11 97.6 F 63 20 150/99 96 07/09/19 05:43 97.9 F 07/09/19 05:41 62 18 155/95 92 07/08/19 23:46 97.5 F L 07/08/19 23:29 66 20 156/107 97 07/08/19 22:00 62 07/08/19 20:40 97.4 F L 67 163/106 07/08/19 20:38 66 16 149/108 98 07/08/19 20:00 20 07/08/19 17:40 18 07/08/19 17:39 61 18 139/92 100 07/08/19 12:10 98.4 F 70 18 141/102 95 - Physical Examination General: Appears Well, Other (Lethargic) Neck: Positive: neck supple Cardiac: Positive: Reg Rate and Rhythm, S1/S2 Lungs: Positive: clear to auscultation Neuro: Positive: Grossly Intact Extremities: Absent: edema - Labs and Meds Coagulation 07/09/19 Range/Units 04:09 PT 15.4 H (12.2-14.9) Sec. INR 1.25 H (0.87-1.13)
[2019-07-09] MEDS: COUMADIN PO SCH (17:28)
[2019-07-09] MEDS: KEPPRA PO SCH (22:08)
[2019-07-10 06:40] LABS: INR 1.28 (0.87-1.13)
[2019-07-10] MEDS: KEPPRA PO SCH ×2 (10:39→22:45)
[2019-07-10] MEDS: HALFPRIN EC PO SCH (10:39)
[2019-07-10] MEDS: COLACE PO SCH ×2 (10:39→22:46)
[2019-07-10] MEDS: PEPCID IV SCH ×2 (10:40→22:45)
[2019-07-10] MEDS: LASIX PO SCH (10:40)
[2019-07-10] MEDS: ALDACTONE PO SCH (10:41)
[2019-07-10] MEDS: ZESTRIL PO SCH (10:42)
[2019-07-10] MEDS: COREG PO SCH ×2 (10:42→22:20)
--- NOTE | 2019-07-10 10:45 | Progress Note ---
Assessment and Plan Assessment and plan: Assessment and plan: --Acute Toxic metabolic and coagulopathy; Multifactorial as mentioned below Patient is more alert today minimally communicative Supportive care --Acute seizure with postictal lethargy started on Keppra IV, continue Ativan and IBS needed CT head without any acute finding Cannot obtain MRI as patient has ICD in place Consulted neurologic, will follow recommendation --Laminated LV thrombus, we'll resume anticoagulation with the eliquis, bridge with Lovenox Target INR 2-3 --Chronic systolic CHF (congestive heart failure) Ef 15-20%: Has history of nonischemic cardiomyopathy with EF 15-20% Cardiology consulted, will continue home medications --Elevated troponin, chronically elevated Cardiologic CONSULTED --Diabetes Mellitus: ADA diet, insulin, accu check --HTN (hypertension): Monitor bp q shift, continue medical management --Obstructive sleep apnea, CPAP at bedtime --Old CVA, continue anticoagulation, statin, neuro check --Morbid obesity, dietary recommendations as appropriate when clinically more stable --DVT prophylaxis, eliquis CT head: 1. No acute intracranial abnormality. 2. Old, bilateral parieto-occipital infarcts are unchanged. History Interval history: Patient seen and examined medical records reviewed Patient is more alert today intermittent lethargy Minimally communicative Vital signs noted Hospitalist Physical - Constitutional Vitals: Temp Pulse Resp BP Pulse Ox 98.4 F 64 18 141/96 99 07/10/19 07:40 07/10/19 10:42 07/10/19 07:40 07/10/19 10:42 07/10/19 07:40 General appearance: Present: no acute distress, obese, other (vitamin a communicative more alert today) - EENT Eyes: Present: PERRL, EOM intact - Neck Neck: Present: supple, normal ROM - Respiratory Respiratory effort: normal Respiratory: bilateral: diminished, negative: rales, rhonchi, wheezing - Cardiovascular Rhythm: regular Heart Sounds: Present: S1 & S2 - Extremities Extremities: no ischemia, No edema - Abdominal General gastrointestinal: soft, non-tender, non-distended, normal bowel sounds - Integumentary Integumentary: Present: clear, warm - Psychiatric Psychiatric: other (confused) - Neurologic Neurologic: moves all extremities Results - Labs CBC & Chem 7: 07/07/19 01:59 07/07/19 01:59 Labs: Laboratory Last Values WBC 5.3 K/mm3 (4.5-11.0) 07/07/19 01:59 RBC 4.42 M/mm3 (3.65-5.03) 07/07/19 01:59 Hgb 12.3 gm/dl (10.1-14.3) 07/07/19 01:59 Hct 38.9 % (30.3-42.9) 07/07/19 01:59 MCV 88 fl (79-97) 07/07/19 01:59 MCH 28 pg (28-32) 07/07/19 01:59 MCHC 32 % (30-34) 07/07/19 01:59 RDW 21.1 % (13.2-15.2) H 07/07/19 01:59 Plt Count 134 K/mm3 (140-440) L 07/07/19 01:59 Lymph % (Auto) 25.0 % (13.4-35.0) 07/07/19 01:59 [place] % (Auto) 9.4 % (0.0-7.3) H 07/07/19 01:59 Eos % (Auto) 1.9 % (0.0-4.3) 07/07/19 01:59 Baso % (Auto) 0.8 % (0.0-1.8) 07/07/19 01:59 Lymph # 1.3 K/mm3 (1.2-5.4) 07/07/19 01:59 [place] # 0.5 K/mm3 (0.0-0.8) 07/07/19 01:59 Eos # 0.1 K/mm3 (0.0-0.4) 07/07/19 01:59 Baso # 0.0 K/mm3 (0.0-0.1) 07/07/19 01:59 Seg Neutrophils % 62.9 % (40.0-70.0) 07/07/19 01:59 Seg Neutrophils # 3.3 K/mm3 (1.8-7.7) 07/07/19 01:59 PT 15.7 Sec. (12.2-14.9) H 07/10/19 05:59 INR 1.28 (0.87-1.13) H 07/10/19 05:59 APTT 66.1 Sec. (24.2-36.6) H* 07/07/19 01:59 Thrombin Time 17.3 Sec. (15.1-19.6) 07/07/19 01:59 Sodium 145 mmol/L (137-145) 07/07/19 01:59 Potassium 3.5 mmol/L (3.6-5.0) L 07/07/19 01:59 Chloride 104.9 mmol/L (98-107) 07/07/19 01:59 Carbon Dioxide 27 mmol/L (22-30) 07/07/19 01:59 Anion Gap 17 mmol/L 07/07/19 01:59 BUN 16 mg/dL (7-17) 07/07/19 01:59 Creatinine 1.0 mg/dL (0.7-1.2) 07/07/19 01:59 Estimated GFR > 60 ml/min 07/07/19 01:59 BUN/Creatinine Ratio 16 % 07/07/19 01:59 Glucose 103 mg/dL (65-100) H 07/07/19 01:59 POC Glucose 97 (70-105) 07/10/19 07:47 Calcium 8.6 mg/dL (8.4-10.2) 07/07/19 01:59 Total Creatine Kinase 51 units/L (30-135) 07/07/19 11:46 CK-MB (CK-2) 1.6 ng/mL (0.0-4.0) 07/07/19 11:46 CK-MB (CK-2) Rel Index 3.1 (0-4) 07/07/19 11:46 Troponin T 0.412 ng/mL (0.00-0.029) H* 07/07/19 11:46 Triglycerides 56 mg/dL (2-149) 07/07/19 01:59 Cholesterol 111 mg/dL (50-199) 07/07/19 01:59 LDL Cholesterol Direct 55 mg/dL (50-130) 07/07/19 01:59 HDL Cholesterol 52 mg/dL (40-59) 07/07/19 01:59 Cholesterol/HDL Ratio 2.13 % 07/07/19 01:59 Active Medications - Current Medications Current Medications: Generic Name Dose Route Start Last Admin Trade Name Temoq PRN Reason Stop Dose Admin Acetaminophen 650 mg 07/07/19 16:36 07/09/19 22:08 Tylenol PO 650 mg Q4H PRN Administration Pain MILD(1-3)/Fever >100.5/[place] Aspirin 81 mg 07/08/19 10:00 07/10/19 10:39 Halfprin Ec PO 81 mg QDAY MAHOGANY Administration Atorvastatin Calcium 80 mg 07/07/19 22:00 07/09/19 22:08 Lipitor PO 80 mg QHS MAHOGANY Administration Bisacodyl 10 mg 07/07/19 10:28 Dulcolax [place] QDAY PRN Constipation Carvedilol 6.25 mg 07/07/19 22:00 07/10/19 10:42 Coreg PO 6.25 mg BID MAHOGANY Administration Docusate Sodium 100 mg 07/07/19 11:00 07/10/19 10:39 Colace PO 100 mg BID MAHOGANY Administration Famotidine 10 mg 07/07/19 11:30 07/10/19 10:40 Pepcid IV 10 mg BID MAHOGANY Administration Furosemide 40 mg 07/08/19 10:00 07/10/19 10:40 Lasix PO 40 mg QDAY MAHOGANY Administration Hydralazine HCl 5 mg 07/08/19 05:50 Apresoline IV Q6H PRN Hypertension Levetiracetam 750 mg 07/09/19 22:00 07/10/19 10:39 Keppra PO 750 mg BID MAHOGANY Administration Lisinopril 20 mg 07/08/19 10:00 07/10/19 10:42 Zestril PO 20 mg QDAY MAHOGANY Administration Magnesium Hydroxide 30 ml 07/07/19 10:28 Milk Of Magnesia PO Q4H PRN Constipation Metoclopramide HCl 10 mg 07/07/19 10:28 Reglan PO Q6H PRN Nausea And Vomiting Ondansetron HCl 4 mg 07/07/19 10:28 Zofran IV Q8H PRN Nausea And Vomiting Promethazine HCl 25 mg 07/07/19 10:28 Phenergan [place] Q6H PRN Nausea And Vomiting Sodium Chloride 10 ml 07/07/19 10:28 Sodium Chloride Flush Syringe 10 Ml IV PRN PRN LINE FLUSH Spironolactone 25 mg 07/08/19 10:00 07/10/19 10:41 Aldactone PO 25 mg QDAY MAHOGANY Administration Warfarin Sodium 7.5 mg 07/08/19 18:00 07/09/19 17:28 Coumadin PO 7.5 mg DAILY@1700 [facility] Administration Protocol Nutrition/Malnutrition Assess - Dietary Evaluation Nutrition/Malnutrition Findings: Nutrition Notes Start: 07/07/19 11:18 Freq: Status: Active Protocol: Document 07/08/19 10:43 PS (Rec: 07/08/19 11:07 PS [id number]) Co-Sign 07/08/19 10:43 LM Nutrition Notes Need for Assessment generated from: MD Order,Education Initial or Follow up Brief Note Current Diagnosis Diabetes,Hypertension,Heart Failure,Stroke Other Pertinent Diagnosis DVT, [place], pulmonary embolism, seizures Current Diet Mechanical Soft Pertinent Medications Coumadin Subjective/Other Information Pt. lethargic at time of visit , but at bedside. states pt. has been on coumadin before and she knows what it is. took Vitamin K and Medication handout. Nutrition Intervention Teaching Recipient Spouse Learning Readiness Good Teaching Methods Handout Response to Teaching Verbalize understanding Education Handouts Provided Vitamin K and Medication Barriers to Learning Cognitive/Verbal RD phone number provided Yes Patient aware of follow up options Yes Revisit per MD consult or patient Sign Off request:
--- NOTE | 2019-07-10 15:37 | Progress Note ---
Subjective Date of service: 07/10/19 Principal diagnosis: Seizure Interval history: Assessment and Plan Seizures with post-ictal lethargy Hx of Laminated LV thrombus Non-specific troponin Nonischemic cardiomyopathy, EF 20% Presence of AICD, subcutaneous Obesity Recommendations: Patient follows with Dr Ayoub at [place], will need compliance with anticoagulation. No new cardiac recommendations Objective Vital Signs Temp Pulse Resp BP BP Pulse Ox 07/10/19 12:08 98.0 F 55 L 18 149/85 97 07/10/19 10:42 64 141/86 07/10/19 10:41 64 141/96 07/10/19 08:28 53 L 07/10/19 07:40 98.4 F 60 18 141/96 99 07/10/19 04:50 97.5 F L 67 18 159/103 94 07/09/19 23:47 97.5 F L 07/09/19 23:45 57 L 20 126/88 100 07/09/19 22:00 55 L 20 07/09/19 20:33 97.9 F 07/09/19 20:32 51 L 18 146/97 97 07/09/19 17:23 98.1 F 45 L 20 113/70 97 - Physical Examination General: Appears Well, Other (Lethargic) Neck: Positive: neck supple Cardiac: Positive: Reg Rate and Rhythm, S1/S2 Lungs: Positive: Normal Exam Neuro: Positive: Grossly Intact Extremities: Absent: edema - Labs and Meds Coagulation 07/10/19 Range/Units 05:59 PT 15.7 H (12.2-14.9) Sec. INR 1.28 H (0.87-1.13)
[2019-07-10] MEDS: COUMADIN PO SCH (17:56)
[2019-07-10] MEDS ORDERED: LOVENOX SUB-Q SCH (22:00)
[2019-07-10] MEDS: SODIUM CHLORIDE FLUSH SYRINGE 10 ML IV PRN (22:46)
[2019-07-11 08:39] LABS: INR 1.38 (0.87-1.13)
[2019-07-11] MEDS: KEPPRA PO SCH ×2 (09:51→21:21)
[2019-07-11] MEDS: COLACE PO SCH ×2 (09:53→21:20)
[2019-07-11] MEDS: HALFPRIN EC PO SCH (09:56)
[2019-07-11] MEDS: TYLENOL PO PRN (09:56)
[2019-07-11] MEDS: LASIX PO SCH (09:57)
[2019-07-11] MEDS: ZESTRIL PO SCH (09:58)
[2019-07-11] MEDS: PEPCID PO SCH ×2 (10:00→21:21)
[2019-07-11] MEDS: LOVENOX SUB-Q SCH ×4 (10:01→21:33)
[2019-07-11] MEDS: COREG PO SCH ×2 (10:08→21:22)
--- NOTE | 2019-07-11 17:04 | Progress Note ---
Assessment and Plan - Patient Problems (1) Acute on chronic systolic CHF (congestive heart failure) Current Visit: No Status: Acute Plan to address problem: Continue medical therapy for dilated cardiomyopathy and chronic systolic left ventricular dysfunction. Subjective Date of service: 07/11/19 Principal diagnosis: Seizure Interval history: Patient is comfortable, no new cardiac complaints, no acute distress. Objective Vital Signs Temp Pulse Pulse Resp BP Pulse Ox 07/11/19 11:42 98.2 F 63 18 163/83 97 07/11/19 10:08 56 L 07/11/19 09:58 56 L 150/83 07/11/19 07:50 98.6 F 56 L 20 150/83 97 07/11/19 02:55 97.6 F 61 16 147/88 97 07/10/19 23:10 98.4 F 54 L 18 165/107 98 07/10/19 22:00 74 74 07/10/19 19:35 98.7 F 48 L 18 133/80 100 - Physical Examination General: Appears Well, Other (Lethargic) Neck: Positive: neck supple Cardiac: Positive: Reg Rate and Rhythm Lungs: Positive: Decreased Breath Sounds Neuro: Positive: Grossly Intact Abdomen: Positive: Soft Skin: Positive: Clear Extremities: Absent: edema - Labs and Meds Coagulation 07/11/19 Range/Units 07:48 PT 16.6 H (12.2-14.9) Sec. INR 1.38 H (0.87-1.13)
--- NOTE | 2019-07-11 20:27 | Progress Note ---
Assessment and Plan Assessment and plan: --Acute Toxic metabolic encephalopathy; Multifactorial as mentioned below Patient is more alert awake and communicativetoday --Acute seizure with postictal lethargy started on Keppra IV, continue Ativan and IBS needed CT head without any acute finding Cannot obtain MRI as patient has ICD in place Consulted neurologic, will follow recommendation --Laminated LV thrombus, we'll resume anticoagulation with Coumadin, bridge with Lovenox Target INR 2-3 --Chronic systolic CHF (congestive heart failure) Ef 15-20%: Has history of nonischemic cardiomyopathy with EF 15-20% Cardiology consulted, will continue home medications --Elevated troponin, chronically elevated Cardiologic CONSULTED --Diabetes Mellitus: ADA diet, insulin, accu check --HTN (hypertension): Monitor bp q shift, continue medical management --Obstructive sleep apnea, CPAP at bedtime --Old CVA, continue anticoagulation, statin, neuro check --Morbid obesity, dietary recommendations as appropriate when clinically more stable --DVT prophylaxis, Lovenox and Coumadin CT head: 1. No acute intracranial abnormality. 2. Old, bilateral parieto-occipital infarcts are unchanged. History Interval history: Patient seen and examined and medical records reviewed Patient is lethargic easily awakens Minimally communicative Vital signs noted INR remained subtherapeutic Hospitalist Physical - Constitutional Vitals: Temp Pulse Resp BP Pulse Ox 98.2 F 63 18 163/83 97 07/11/19 11:42 07/11/19 11:42 07/11/19 11:42 07/11/19 11:42 07/11/19 11:42 General appearance: Present: no acute distress, well-nourished, obese - EENT Eyes: Present: PERRL, EOM intact - Neck Neck: Present: supple, normal ROM - Respiratory Respiratory effort: normal Respiratory: negative: diminished, rales, rhonchi - Cardiovascular Rhythm: regular Heart Sounds: Present: S1 & S2 - Extremities Extremities: no ischemia, No edema - Abdominal General gastrointestinal: soft, non-tender, non-distended, normal bowel sounds - Integumentary Integumentary: Present: clear, warm - Psychiatric Psychiatric: appropriate mood/affect, cooperative - Neurologic Neurologic: moves all extremities Results - Labs CBC & Chem 7: 07/07/19 01:59 07/07/19 01:59 Labs: Laboratory Last Values WBC 5.3 K/mm3 (4.5-11.0) 07/07/19 01:59 RBC 4.42 M/mm3 (3.65-5.03) 07/07/19 01:59 Hgb 12.3 gm/dl (10.1-14.3) 07/07/19 01:59 Hct 38.9 % (30.3-42.9) 07/07/19 01:59 MCV 88 fl (79-97) 07/07/19 01:59 MCH 28 pg (28-32) 07/07/19 01:59 MCHC 32 % (30-34) 07/07/19 01:59 RDW 21.1 % (13.2-15.2) H 07/07/19 01:59 Plt Count 134 K/mm3 (140-440) L 07/07/19 01:59 Lymph % (Auto) 25.0 % (13.4-35.0) 07/07/19 01:59 [place] % (Auto) 9.4 % (0.0-7.3) H 07/07/19 01:59 Eos % (Auto) 1.9 % (0.0-4.3) 07/07/19 01:59 Baso % (Auto) 0.8 % (0.0-1.8) 07/07/19 01:59 Lymph # 1.3 K/mm3 (1.2-5.4) 07/07/19 01:59 [place] # 0.5 K/mm3 (0.0-0.8) 07/07/19 01:59 Eos # 0.1 K/mm3 (0.0-0.4) 07/07/19 01:59 Baso # 0.0 K/mm3 (0.0-0.1) 07/07/19 01:59 Seg Neutrophils % 62.9 % (40.0-70.0) 07/07/19 01:59 Seg Neutrophils # 3.3 K/mm3 (1.8-7.7) 07/07/19 01:59 PT 16.6 Sec. (12.2-14.9) H 07/11/19 07:48 INR 1.38 (0.87-1.13) H 07/11/19 07:48 APTT 66.1 Sec. (24.2-36.6) H* 07/07/19 01:59 Thrombin Time 17.3 Sec. (15.1-19.6) 07/07/19 01:59 Sodium 145 mmol/L (137-145) 07/07/19 01:59 Potassium 3.5 mmol/L (3.6-5.0) L 07/07/19 01:59 Chloride 104.9 mmol/L (98-107) 07/07/19 01:59 Carbon Dioxide 27 mmol/L (22-30) 07/07/19 01:59 Anion Gap 17 mmol/L 07/07/19 01:59 BUN 16 mg/dL (7-17) 07/07/19 01:59 Creatinine 1.0 mg/dL (0.7-1.2) 07/07/19 01:59 Estimated GFR > 60 ml/min 07/07/19 01:59 BUN/Creatinine Ratio 16 % 07/07/19 01:59 Glucose 103 mg/dL (65-100) H 07/07/19 01:59 POC Glucose 116 (70-105) H 07/10/19 16:05 Calcium 8.6 mg/dL (8.4-10.2) 07/07/19 01:59 Total Creatine Kinase 51 units/L (30-135) 07/07/19 11:46 CK-MB (CK-2) 1.6 ng/mL (0.0-4.0) 07/07/19 11:46 CK-MB (CK-2) Rel Index 3.1 (0-4) 07/07/19 11:46 Troponin T 0.412 ng/mL (0.00-0.029) H* 07/07/19 11:46 Triglycerides 56 mg/dL (2-149) 07/07/19 01:59 Cholesterol 111 mg/dL (50-199) 07/07/19 01:59 LDL Cholesterol Direct 55 mg/dL (50-130) 07/07/19 01:59 HDL Cholesterol 52 mg/dL (40-59) 07/07/19 01:59 Cholesterol/HDL Ratio 2.13 % 07/07/19 01:59 Active Medications - Current Medications Current Medications: Generic Name Dose Route Start Last Admin Trade Name Temoq PRN Reason Stop Dose Admin Acetaminophen 650 mg 07/07/19 16:36 07/11/19 09:56 Tylenol PO 650 mg Q4H PRN Administration Pain MILD(1-3)/Fever >100.5/OAKES Aspirin 81 mg 07/08/19 10:00 07/11/19 09:56 Halfprin Ec PO 81 mg QDAY MAHOGANY Administration Atorvastatin Calcium 80 mg 07/07/19 22:00 07/10/19 22:46 Lipitor PO 80 mg QHS MAHOGANY Administration Bisacodyl 10 mg 07/07/19 10:28 Dulcolax [place] QDAY PRN Constipation Carvedilol 6.25 mg 07/07/19 22:00 07/11/19 10:08 Coreg PO Not Given BID MAHOGANY Docusate Sodium 100 mg 07/07/19 11:00 07/11/19 09:53 Colace PO 100 mg BID MAHOGANY Administration Enoxaparin Sodium 100 mg 07/11/19 10:00 07/11/19 10:01 Lovenox SUB-Q 100 mg Q12HR MAHOGANY Administration Enoxaparin Sodium 30 mg 07/11/19 10:00 07/11/19 10:08 Lovenox SUB-Q 30 mg Q12HR MAHOGANY Administration Famotidine 10 mg 07/11/19 10:00 07/11/19 10:00 Pepcid PO 10 mg BID MAHOGANY Administration Furosemide 40 mg 07/08/19 10:00 07/11/19 09:57 Lasix PO 40 mg QDAY MAHOGANY Administration Hydralazine HCl 5 mg 07/08/19 05:50 Apresoline IV Q6H PRN Hypertension Levetiracetam 750 mg 07/09/19 22:00 07/11/19 09:51 Keppra PO 750 mg BID MAHOGANY Administration Lisinopril 20 mg 07/08/19 10:00 07/11/19 09:58 Zestril PO 20 mg QDAY MAHOGANY Administration Magnesium Hydroxide 30 ml 07/07/19 10:28 Milk Of Magnesia PO Q4H PRN Constipation Metoclopramide HCl 10 mg 07/07/19 10:28 Reglan PO Q6H PRN Nausea And Vomiting Ondansetron HCl 4 mg 07/07/19 10:28 Zofran IV Q8H PRN Nausea And Vomiting Promethazine HCl 25 mg 07/07/19 10:28 Phenergan [place] Q6H PRN Nausea And Vomiting Sodium Chloride 10 ml 07/07/19 10:28 07/10/19 22:46 Sodium Chloride Flush Syringe 10 Ml IV 10 ml PRN PRN Administration LINE FLUSH Spironolactone 25 mg 07/08/19 10:00 07/10/19 10:41 Aldactone PO 25 mg QDAY MAHOGANY Administration Warfarin Sodium 10 mg 07/10/19 17:00 07/10/19 17:56 Coumadin PO 10 mg DAILY@1700 MAHOGANY Administration Nutrition/Malnutrition Assess - Dietary Evaluation Nutrition/Malnutrition Findings: Nutrition Notes Start: 07/07/19 11:18 Freq: Status: Active Protocol: Document 07/08/19 10:43 PS (Rec: 07/08/19 11:07 PS [id number]) Co-Sign 07/08/19 10:43 LM Nutrition Notes Need for Assessment generated from: MD Order,Education Initial or Follow up Brief Note Current Diagnosis Diabetes,Hypertension,Heart Failure,Stroke Other Pertinent Diagnosis DVT, [place], pulmonary embolism, seizures Current Diet Mechanical Soft Pertinent Medications Coumadin Subjective/Other Information Pt. lethargic at time of visit , but at bedside. states pt. has been on coumadin before and she knows what it is. took Vitamin K and Medication handout. Nutrition Intervention Teaching Recipient Spouse Learning Readiness Good Teaching Methods Handout Response to Teaching Verbalize understanding Education Handouts Provided Vitamin K and Medication Barriers to Learning Cognitive/Verbal RD phone number provided Yes Patient aware of follow up options Yes Revisit per MD consult or patient Sign Off request:
[2019-07-11] MEDS: ALDACTONE PO SCH (21:05)
[2019-07-11] MEDS: COUMADIN PO SCH (21:27)
[2019-07-12 06:06] LABS: INR 1.51 (0.87-1.13)
[2019-07-12] MEDS: HALFPRIN EC PO SCH (09:41)
[2019-07-12] MEDS: KEPPRA PO SCH ×2 (09:41→21:53)
[2019-07-12] MEDS: PEPCID PO SCH ×2 (09:41→21:54)
[2019-07-12] MEDS: LASIX PO SCH (09:41)
[2019-07-12] MEDS: ALDACTONE PO SCH (09:43)
[2019-07-12] MEDS: COLACE PO SCH ×2 (09:43→21:54)
[2019-07-12] MEDS: COREG PO SCH ×2 (09:44→21:54)
[2019-07-12] MEDS: LOVENOX SUB-Q SCH ×4 (09:45→21:53)
[2019-07-12] MEDS: ZESTRIL PO SCH (09:45)
--- NOTE | 2019-07-12 11:58 | Progress Note ---
Assessment and Plan Seizures with post-ictal lethargy Hx of Laminated LV thrombus anticoagulation changed to warfarin this admission Nonischemic cardiomyopathy, EF 20% Presence of AICD, subcutaneous Obesity Continue medical therapy for nonischemic cardiomyopathy and LV thrombus. Subjective Date of service: 07/12/19 Principal diagnosis: Seizure Interval history: No cardiac complaints. Objective Vital Signs Temp Pulse Resp BP Pulse Ox 07/12/19 11:52 97.9 F 46 L 18 142/81 95 07/12/19 09:45 52 L 176/64 07/12/19 09:44 52 L 176/64 07/12/19 09:43 52 L 176/64 07/12/19 07:49 76 20 176/64 97 07/12/19 05:32 74 07/12/19 03:56 97.9 F 69 18 164/94 98 07/12/19 00:14 69 07/11/19 23:47 97.6 F 54 L 18 145/81 93 07/11/19 22:00 60 07/11/19 21:22 162/84 07/11/19 19:47 97.6 F 52 L 16 162/84 97 - Physical Examination General: No Apparent Distress Neck: Positive: neck supple Cardiac: Positive: Reg Rate and Rhythm Lungs: Positive: Decreased Breath Sounds Neuro: Positive: Grossly Intact Extremities: Absent: edema - Labs and Meds Coagulation 07/12/19 Range/Units 05:29 PT 17.8 H (12.2-14.9) Sec. INR 1.51 H (0.87-1.13)
--- NOTE | 2019-07-12 12:46 | Progress Note ---
Assessment and Plan Assessment and plan: --Laminated LV thrombus, we'll resume anticoagulation with the eliquis, bridge with Lovenox Target INR 2-3 --Acute seizure with postictal lethargy started on Keppra IV, continue Ativan and IBS needed CT head without any acute finding Cannot obtain MRI as patient has ICD in place Consulted neurologic, will follow recommendation --Chronic systolic CHF (congestive heart failure) Ef 15-20%: Has history of nonischemic cardiomyopathy with EF 15-20% Cardiology consulted, will continue home medications --Elevated troponin, chronically elevated Cardiologic CONSULTED --Diabetes Mellitus: ADA diet, insulin, accu check --HTN (hypertension): Monitor bp q shift, continue medical management --Obstructive sleep apnea, CPAP at bedtime --Old CVA, continue anticoagulation, statin, neuro check --Morbid obesity, dietary recommendations as appropriate when clinically more stable --DVT prophylaxis, eliquis Disposition; and a home tomorrow if INR is therapeutic between 2 and 3 If INR is not therapeutic, will DC home on Lovenox and Coumadin If patient is stable History Interval history: Patient seen and examined medical records reviewed Patient is more alert and awake today responding appropriately Vital signs noted Patient's INR is subtherapeutic Has history of LV thrombus in the setting of seizures/CVA INR to be therapeutic between 2 and 3/or discharge home with Lovenox and Coumadin Hospitalist Physical - Constitutional Vitals: Temp Pulse Resp BP Pulse Ox 97.9 F 46 L 18 142/81 95 07/12/19 11:52 07/12/19 11:52 07/12/19 11:52 07/12/19 11:52 07/12/19 11:52 General appearance: Present: no acute distress, well-nourished, obese - EENT Eyes: Present: PERRL, EOM intact - Neck Neck: Present: supple, normal ROM - Respiratory Respiratory effort: normal Respiratory: bilateral: diminished, negative: rales, rhonchi, wheezing - Cardiovascular Rhythm: regular Heart Sounds: Present: S1 & S2 - Extremities Extremities: no ischemia, No edema - Abdominal General gastrointestinal: soft, non-tender, non-distended, normal bowel sounds - Integumentary Integumentary: Present: clear, warm - Psychiatric Psychiatric: appropriate mood/affect, cooperative - Neurologic Neurologic: moves all extremities Results - Labs CBC & Chem 7: 07/07/19 01:59 07/07/19 01:59 Labs: Laboratory Last Values WBC 5.3 K/mm3 (4.5-11.0) 07/07/19 01:59 RBC 4.42 M/mm3 (3.65-5.03) 07/07/19 01:59 Hgb 12.3 gm/dl (10.1-14.3) 07/07/19 01:59 Hct 38.9 % (30.3-42.9) 07/07/19 01:59 MCV 88 fl (79-97) 07/07/19 01:59 MCH 28 pg (28-32) 07/07/19 01:59 MCHC 32 % (30-34) 07/07/19 01:59 RDW 21.1 % (13.2-15.2) H 07/07/19 01:59 Plt Count 134 K/mm3 (140-440) L 07/07/19 01:59 Lymph % (Auto) 25.0 % (13.4-35.0) 07/07/19 01:59 [place] % (Auto) 9.4 % (0.0-7.3) H 07/07/19 01:59 Eos % (Auto) 1.9 % (0.0-4.3) 07/07/19 01:59 Baso % (Auto) 0.8 % (0.0-1.8) 07/07/19 01:59 Lymph # 1.3 K/mm3 (1.2-5.4) 07/07/19 01:59 [place] # 0.5 K/mm3 (0.0-0.8) 07/07/19 01:59 Eos # 0.1 K/mm3 (0.0-0.4) 07/07/19 01:59 Baso # 0.0 K/mm3 (0.0-0.1) 07/07/19 01:59 Seg Neutrophils % 62.9 % (40.0-70.0) 07/07/19 01:59 Seg Neutrophils # 3.3 K/mm3 (1.8-7.7) 07/07/19 01:59 PT 17.8 Sec. (12.2-14.9) H 07/12/19 05:29 INR 1.51 (0.87-1.13) H 07/12/19 05:29 APTT 66.1 Sec. (24.2-36.6) H* 07/07/19 01:59 Thrombin Time 17.3 Sec. (15.1-19.6) 07/07/19 01:59 Sodium 145 mmol/L (137-145) 07/07/19 01:59 Potassium 3.5 mmol/L (3.6-5.0) L 07/07/19 01:59 Chloride 104.9 mmol/L (98-107) 07/07/19 01:59 Carbon Dioxide 27 mmol/L (22-30) 07/07/19 01:59 Anion Gap 17 mmol/L 07/07/19 01:59 BUN 16 mg/dL (7-17) 07/07/19 01:59 Creatinine 1.0 mg/dL (0.7-1.2) 07/07/19 01:59 Estimated GFR > 60 ml/min 07/07/19 01:59 BUN/Creatinine Ratio 16 % 07/07/19 01:59 Glucose 103 mg/dL (65-100) H 07/07/19 01:59 POC Glucose 116 (70-105) H 07/10/19 16:05 Calcium 8.6 mg/dL (8.4-10.2) 07/07/19 01:59 Total Creatine Kinase 51 units/L (30-135) 07/07/19 11:46 CK-MB (CK-2) 1.6 ng/mL (0.0-4.0) 07/07/19 11:46 CK-MB (CK-2) Rel Index 3.1 (0-4) 07/07/19 11:46 Troponin T 0.412 ng/mL (0.00-0.029) H* 07/07/19 11:46 Triglycerides 56 mg/dL (2-149) 07/07/19 01:59 Cholesterol 111 mg/dL (50-199) 07/07/19 01:59 LDL Cholesterol Direct 55 mg/dL (50-130) 07/07/19 01:59 HDL Cholesterol 52 mg/dL (40-59) 07/07/19 01:59 Cholesterol/HDL Ratio 2.13 % 07/07/19 01:59 Active Medications - Current Medications Current Medications: Generic Name Dose Route Start Last Admin Trade Name Freq PRN Reason Stop Dose Admin Acetaminophen 650 mg 07/07/19 16:36 07/11/19 09:56 Tylenol PO 650 mg Q4H PRN Administration Pain MILD(1-3)/Fever >100.5/[place] Aspirin 81 mg 07/08/19 10:00 07/12/19 09:41 Halfprin Ec PO 81 mg QDAY MAHOGANY Administration Atorvastatin Calcium 80 mg 07/07/19 22:00 07/11/19 21:20 Lipitor PO 80 mg QHS MAHOGANY Administration Bisacodyl 10 mg 07/07/19 10:[address] QDAY PRN Constipation Carvedilol 6.25 mg 07/07/19 22:00 07/12/19 09:44 Coreg PO 6.25 mg BID MAHOGANY Administration Docusate Sodium 100 mg 07/07/19 11:00 07/12/19 09:43 Colace PO 100 mg BID MAHOGANY Administration Enoxaparin Sodium 100 mg 07/11/19 10:00 07/12/19 09:46 Lovenox SUB-Q 100 mg Q12HR MAHOGANY Administration Enoxaparin Sodium 30 mg 07/11/19 10:00 07/12/19 09:45 Lovenox SUB-Q 30 mg Q12HR MAHOGANY Administration Famotidine 10 mg 07/11/19 10:00 07/12/19 09:41 Pepcid PO 10 mg BID MAHOGANY Administration Furosemide 40 mg 07/08/19 10:00 07/12/19 09:41 Lasix PO 40 mg QDAY MAHOGANY Administration Hydralazine HCl 5 mg 07/08/19 05:50 Apresoline IV Q6H PRN Hypertension Levetiracetam 750 mg 07/09/19 22:00 07/12/19 09:41 Keppra PO 750 mg BID MAHOGANY Administration Lisinopril 20 mg 07/08/19 10:00 07/12/19 09:45 Zestril PO 20 mg QDAY MAHOGANY Administration Magnesium Hydroxide 30 ml 07/07/19 10:28 Milk Of Magnesia PO Q4H PRN Constipation Metoclopramide HCl 10 mg 07/07/19 10:28 Reglan PO Q6H PRN Nausea And Vomiting Ondansetron HCl 4 mg 07/07/19 10:28 Zofran IV Q8H PRN Nausea And Vomiting Promethazine HCl 25 mg 07/07/19 10:[address] Q6H PRN Nausea And Vomiting Sodium Chloride 10 ml 07/07/19 10:28 07/10/19 22:46 Sodium Chloride Flush Syringe 10 Ml IV 10 ml PRN PRN Administration LINE FLUSH Spironolactone 25 mg 07/08/19 10:00 07/12/19 09:43 Aldactone PO 25 mg QDAY MAHOGANY Administration Warfarin Sodium 10 mg 07/10/19 17:00 07/11/19 21:27 Coumadin PO 10 mg DAILY@1700 MAHOGANY Administration Nutrition/Malnutrition Assess - Dietary Evaluation Nutrition/Malnutrition Findings: Nutrition Notes Start: 07/07/19 11:18 Freq: Status: Active Protocol: Document 07/08/19 10:43 PS (Rec: 07/08/19 11:07 PS [id number]) Co-Sign 07/08/19 10:43 LM Nutrition Notes Need for Assessment generated from: MD Order,Education Initial or Follow up Brief Note Current Diagnosis Diabetes,Hypertension,Heart Failure,Stroke Other Pertinent Diagnosis DVT, [place], pulmonary embolism, seizures Current Diet Mechanical Soft Pertinent Medications Coumadin Subjective/Other Information Pt. lethargic at time of visit , but at bedside. states pt. has been on coumadin before and she knows what it is. took Vitamin K and Medication handout. Nutrition Intervention Teaching Recipient Spouse Learning Readiness Good Teaching Methods Handout Response to Teaching Verbalize understanding Education Handouts Provided Vitamin K and Medication Barriers to Learning Cognitive/Verbal RD phone number provided Yes Patient aware of follow up options Yes Revisit per MD consult or patient Sign Off request:
[2019-07-12] MEDS: COUMADIN PO SCH (18:27)
[2019-07-13 06:04] LABS: INR 1.88 (0.87-1.13)
[2019-07-13] MEDS: APRESOLINE IV PRN (08:11)
--- NOTE | 2019-07-13 09:32 | Progress Note ---
<PATRICK SANDOVAL - Last Filed: 07/13/19 10:59> Assessment and Plan Seizures with post-ictal lethargy Hx of Laminated LV thrombus anticoagulation changed to warfarin this admission Nonischemic cardiomyopathy, EF 20% Presence of AICD, subcutaneous Obesity Continue medical therapy for nonischemic cardiomyopathy and anticoagulation for left ventricular thrombus. Subjective Date of service: 07/13/19 Principal diagnosis: Seizure Interval history: Patient complains of headaches. No cardiac complaints. Objective Vital Signs Temp Pulse Pulse Resp BP BP Pulse Ox 07/13/19 08:11 170/103 07/13/19 07:48 97.9 F 56 L 18 170/103 91 07/13/19 03:44 97.9 F 48 L 18 148/87 99 07/13/19 03:00 48 L 07/12/19 23:01 97.7 F 51 L 16 154/87 99 07/12/19 20:00 98.0 F 52 L 18 141/79 98 07/12/19 19:29 98.5 F 53 L 20 141/79 97 07/12/19 17:02 97.9 F 50 L 18 163/87 92 07/12/19 11:52 97.9 F 46 L 18 142/81 95 07/12/19 10:00 48 L 64 20 95 07/12/19 09:45 52 L 176/64 07/12/19 09:44 52 L 176/64 07/12/19 09:43 52 L 176/64 - Physical Examination General: No Apparent Distress HEENT: Positive: PERRL Neck: Positive: neck supple Cardiac: Positive: Reg Rate and Rhythm Lungs: Positive: Decreased Breath Sounds Neuro: Positive: Grossly Intact Abdomen: Positive: Soft Extremities: Absent: edema - Labs and Meds Coagulation 07/13/19 Range/Units 05:26 PT 21.2 H (12.2-14.9) Sec. INR 1.88 H (0.87-1.13) <JOSUÉ CARRILLO - Last Filed: 07/13/19 20:48> Assessment and Plan I have seen and evaluated the patient and agree with the assessment and plan. The patient has a history of nonischemic cardiomyopathy with EF 20% s/p AICD placement. Recommend the patient continue goal directed medical therapy for treatment of ischemic cardiomyopathy. Continue anticoagulation for treatment of LV thrombus. Objective Vital Signs Temp Pulse Pulse Resp BP Pulse Ox 07/13/19 19:38 98.0 F 49 L 18 156/86 95 07/13/19 16:17 98.0 F 53 L 18 108/80 94 07/13/19 11:26 97.9 F 53 L 18 142/90 97 07/13/19 11:21 65 170/103 07/13/19 11:20 170/103 07/13/19 10:00 67 16 07/13/19 08:11 170/103 07/13/19 07:48 97.9 F 56 L 18 170/103 91 07/13/19 03:44 97.9 F 48 L 18 148/87 99 07/13/19 03:00 48 L 07/12/19 23:01 97.7 F 51 L 16 154/87 99 - Labs and Meds Coagulation 07/13/19 Range/Units 05:26 PT 21.2 H (12.2-14.9) Sec. INR 1.88 H (0.87-1.13)
[2019-07-13] MEDS: PEPCID PO SCH ×2 (11:19→22:27)
[2019-07-13] MEDS: HALFPRIN EC PO SCH (11:19)
[2019-07-13] MEDS: ALDACTONE PO SCH (11:20)
[2019-07-13] MEDS: ZESTRIL PO SCH (11:20)
[2019-07-13] MEDS: KEPPRA PO SCH ×2 (11:20→22:27)
[2019-07-13] MEDS: COREG PO SCH ×2 (11:21→22:29)
[2019-07-13] MEDS: COLACE PO SCH ×2 (11:21→22:27)
[2019-07-13] MEDS: LASIX PO SCH (11:22)
[2019-07-13] MEDS: LOVENOX SUB-Q SCH ×2 (11:22→11:23)
--- NOTE | 2019-07-13 13:57 | Cat Scan Report ---
CT HEAD WITHOUT CONTRAST INDICATION : severe head ache. TECHNIQUE: Axial imaging performed from the skull apex through the skull base without the use of con trast. Sagittal and coronal reformatted images. All CT scans at this location are performed using C T dose reduction for ALARA by means of automated exposure control. COMPARISON: 07/07/2019 FINDINGS: Parenchyma: An approximate 4.4 x 3.4 cm area of diminished attenuation has developed in the left fro ntal lobe consistent with a subacute infarct. There is subtle hyperdensity along the margins of this hypodense area which probably represents petechial hemorrhage. No large uncontained hemorrhage. Large chronic infarcts involving the bilateral occipital lobes and medial right temporal lobe are unchange d. Multiple chronic smaller infarcts are noted in both cerebellar hemispheres which are also unchange d. Mild underlying chronic ischemic changes in the white matter is again noted. Ventricles: Ventricles are normal in size and appear symmetric. Bones: No acute osseous abnormality. Sinuses: Sinuses and mastoid air cells are clear. Soft tissues: Soft tissues including the orbits appear normal. IMPRESSION: Subacute ischemic infarct is suspected in the left frontal lobe. See above. Multiple chronic infarcts as described. Mild chronic white matter changes. Signer Name: Cirilo Nguyen Jr, MD Signed: 07/13/2019 1:53 PM Workstation Name: [id number]
--- NOTE | 2019-07-13 14:59 | Progress Note ---
Assessment and Plan Assessment and plan: --Headache since last night; Stat CT head WO : Possible subacute ischemic infarct suspected in the left frontal lobe. Patient is on anticoagulation with Lovenox and Coumadin Neurology consult --Laminated LV thrombus, we'll resume anticoagulation with the eliquis, bridge with Lovenox Target INR 2-3 --Acute seizure with postictal lethargy started on Keppra IV, continue Ativan and IBS needed CT head without any acute finding Cannot obtain MRI as patient has ICD in place Consulted neurologic, will follow recommendation --Chronic systolic CHF (congestive heart failure) Ef 15-20%: Has history of nonischemic cardiomyopathy with EF 15-20% Cardiology consulted, will continue home medications --Elevated troponin, chronically elevated Cardiologic CONSULTED --Diabetes Mellitus: ADA diet, insulin, accu check --HTN (hypertension): Monitor bp q shift, continue medical management --Obstructive sleep apnea, CPAP at bedtime --Old CVA, continue anticoagulation, statin, neuro check --Morbid obesity, dietary recommendations as appropriate when clinically more stable --DVT prophylaxis, eliquis Monitor closely and adjust management as needed Follow neurology evaluation and recommendations Plan of care is reviewed with the patient, her nurse and case management History Interval history: Patient seen and examined this morning ,medical records reviewed Patient complains of headache since last night. Denies nausea vomiting Alert awake responding appropriately Vital signs reviewed Hospitalist Physical - Constitutional Vitals: Temp Pulse Resp BP Pulse Ox 97.9 F 53 L 18 142/90 97 07/13/19 11:26 07/13/19 11:26 07/13/19 11:26 07/13/19 11:26 07/13/19 11:26 General appearance: Present: no acute distress, well-nourished, obese - EENT Eyes: Present: PERRL, EOM intact - Neck Neck: Present: supple, normal ROM - Respiratory Respiratory effort: normal Respiratory: bilateral: diminished, negative: rales, rhonchi, wheezing - Cardiovascular Rhythm: regular Heart Sounds: Present: S1 & S2 - Extremities Extremities: no ischemia, No edema - Abdominal General gastrointestinal: soft, non-tender, non-distended, normal bowel sounds - Integumentary Integumentary: Present: clear, warm - Psychiatric Psychiatric: appropriate mood/affect, cooperative - Neurologic Neurologic: other (residual weakness) Results - Labs CBC & Chem 7: 10/03/19 01:59 07/07/19 01:59 Labs: Laboratory Last Values WBC 5.3 K/mm3 (4.5-11.0) 07/07/19 01:59 RBC 4.42 M/mm3 (3.65-5.03) 07/07/19 01:59 Hgb 12.3 gm/dl (10.1-14.3) 07/07/19 01:59 Hct 38.9 % (30.3-42.9) 07/07/19 01:59 MCV 88 fl (79-97) 07/07/19 01:59 MCH 28 pg (28-32) 07/07/19 01:59 MCHC 32 % (30-34) 07/07/19 01:59 RDW 21.1 % (13.2-15.2) H 07/07/19 01:59 Plt Count 134 K/mm3 (140-440) L 07/07/19 01:59 Lymph % (Auto) 25.0 % (13.4-35.0) 07/07/19 01:59 [place] % (Auto) 9.4 % (0.0-7.3) H 07/07/19 01:59 Eos % (Auto) 1.9 % (0.0-4.3) 07/07/19 01:59 Baso % (Auto) 0.8 % (0.0-1.8) 07/07/19 01:59 Lymph # 1.3 K/mm3 (1.2-5.4) 07/07/19 01:59 [place] # 0.5 K/mm3 (0.0-0.8) 07/07/19 01:59 Eos # 0.1 K/mm3 (0.0-0.4) 07/07/19 01:59 Baso # 0.0 K/mm3 (0.0-0.1) 07/07/19 01:59 Seg Neutrophils % 62.9 % (40.0-70.0) 07/07/19 01:59 Seg Neutrophils # 3.3 K/mm3 (1.8-7.7) 07/07/19 01:59 PT 21.2 Sec. (12.2-14.9) H 07/13/19 05:26 INR 1.88 (0.87-1.13) H 07/13/19 05:26 APTT 66.1 Sec. (24.2-36.6) H* 07/07/19 01:59 Thrombin Time 17.3 Sec. (15.1-19.6) 07/07/19 01:59 Sodium 145 mmol/L (137-145) 07/07/19 01:59 Potassium 3.5 mmol/L (3.6-5.0) L 07/07/19 01:59 Chloride 104.9 mmol/L (98-107) 07/07/19 01:59 Carbon Dioxide 27 mmol/L (22-30) 07/07/19 01:59 Anion Gap 17 mmol/L 07/07/19 01:59 BUN 16 mg/dL (7-17) 07/07/19 01:59 Creatinine 1.0 mg/dL (0.7-1.2) 07/07/19 01:59 Estimated GFR > 60 ml/min 07/07/19 01:59 BUN/Creatinine Ratio 16 % 07/07/19 01:59 Glucose 103 mg/dL (65-100) H 07/07/19 01:59 POC Glucose 116 (70-105) H 07/10/19 16:05 Calcium 8.6 mg/dL (8.4-10.2) 07/07/19 01:59 Total Creatine Kinase 51 units/L (30-135) 07/07/19 11:46 CK-MB (CK-2) 1.6 ng/mL (0.0-4.0) 07/07/19 11:46 CK-MB (CK-2) Rel Index 3.1 (0-4) 07/07/19 11:46 Troponin T 0.412 ng/mL (0.00-0.029) H* 07/07/19 11:46 Triglycerides 56 mg/dL (2-149) 07/07/19 01:59 Cholesterol 111 mg/dL (50-199) 07/07/19 01:59 LDL Cholesterol Direct 55 mg/dL (50-130) 07/07/19 01:59 HDL Cholesterol 52 mg/dL (40-59) 07/07/19 01:59 Cholesterol/HDL Ratio 2.13 % 07/07/19 01:59 Active Medications - Current Medications Current Medications: Generic Name Dose Route Start Last Admin Trade Name Freq PRN Reason Stop Dose Admin Acetaminophen 650 mg 07/07/19 16:36 07/11/19 09:56 Tylenol PO 650 mg Q4H PRN Administration Pain MILD(1-3)/Fever >100.5/OAKES Aspirin 81 mg 07/08/19 10:00 07/13/19 11:19 Halfprin Ec PO 81 mg QDAY MAHOGANY Administration Atorvastatin Calcium 80 mg 07/07/19 22:00 07/12/19 21:54 Lipitor PO 80 mg QHS MAHOGANY Administration Bisacodyl 10 mg 07/07/19 10:28 Dulcolax AL QDAY PRN Constipation Carvedilol 6.25 mg 07/07/19 22:00 07/13/19 11:21 Coreg PO 6.25 mg BID MAHOGANY Administration Docusate Sodium 100 mg 07/07/19 11:00 07/13/19 11:21 Colace PO 100 mg BID MAHOGANY Administration Enoxaparin Sodium 100 mg 07/11/19 10:00 07/13/19 11:23 Lovenox SUB-Q 100 mg Q12HR MAHOGANY Administration Enoxaparin Sodium 30 mg 07/11/19 10:00 07/13/19 11:22 Lovenox SUB-Q 30 mg Q12HR MAHOGANY Administration Famotidine 10 mg 07/11/19 10:00 07/13/19 11:19 Pepcid PO 10 mg BID MAHOGANY Administration Furosemide 40 mg 07/08/19 10:00 07/13/19 11:22 Lasix PO 40 mg QDAY MAHOGANY Administration Hydralazine HCl 5 mg 07/08/19 05:50 07/13/19 08:11 Apresoline IV 5 mg Q6H PRN Administration Hypertension Levetiracetam 750 mg 07/09/19 22:00 07/13/19 11:20 Keppra PO 750 mg BID MAHOGANY Administration Lisinopril 20 mg 07/08/19 10:00 07/13/19 11:20 Zestril PO 20 mg QDAY MAHOGANY Administration Magnesium Hydroxide 30 ml 07/07/19 10:28 Milk Of Magnesia PO Q4H PRN Constipation Metoclopramide HCl 10 mg 07/07/19 10:28 Reglan PO Q6H PRN Nausea And Vomiting Ondansetron HCl 4 mg 10/03/19 10:28 Zofran IV Q8H PRN Nausea And Vomiting Promethazine HCl 25 mg 07/07/19 10:28 Phenergan AL Q6H PRN Nausea And Vomiting Sodium Chloride 10 ml 07/07/19 10:28 07/10/19 22:46 Sodium Chloride Flush Syringe 10 Ml IV 10 ml PRN PRN Administration LINE FLUSH Spironolactone 25 mg 07/08/19 10:00 07/13/19 11:20 Aldactone PO 25 mg QDAY MAHOGANY Administration Warfarin Sodium 10 mg 07/10/19 17:00 07/12/19 18:27 Coumadin PO 10 mg DAILY@1700 MAHOGANY Administration Nutrition/Malnutrition Assess - Dietary Evaluation Nutrition/Malnutrition Findings: Nutrition Notes Start: 07/07/19 11:18 Freq: Status: Active Protocol: Document 07/08/19 10:43 PS (Rec: 07/08/19 11:07 PS [id number]) Co-Sign 07/08/19 10:43 LM Nutrition Notes Need for Assessment generated from: MD Order,Education Initial or Follow up Brief Note Current Diagnosis Diabetes,Hypertension,Heart Failure,Stroke Other Pertinent Diagnosis DVT, MO, pulmonary embolism, seizures Current Diet Mechanical Soft Pertinent Medications Coumadin Subjective/Other Information Pt. lethargic at time of visit , but at bedside. states pt. has been on coumadin before and she knows what it is. took Vitamin K and Medication handout. Nutrition Intervention Teaching Recipient Spouse Learning Readiness Good Teaching Methods Handout Response to Teaching Verbalize understanding Education Handouts Provided Vitamin K and Medication Barriers to Learning Cognitive/Verbal RD phone number provided Yes Patient aware of follow up options Yes Revisit per MD consult or patient Sign Off request:
[2019-07-13] MEDS ORDERED: COUMADIN PO SCH (18:21)
--- NOTE | 2019-07-13 18:27 | Event Note ---
Date: 07/13/19 Case discussed with neurologist regarding CT head findings of acute CVA. In consultation with radiologic therapist, Dr. Madison recommends to decrease Coumadin to 5 mg daily at bedtime Discontinue Lovenox,set a lower target INR 1.5-1.8. Closely monitor for any altered level of consciousness Check follow-up CT brain without contrast on 07/15/2019 This findings and treatment plan, risks benefits and side effects were discussed with the patient and her . They verbalized understanding and agreed with the current treatment plan
--- NOTE | 2019-07-13 18:30 | Consultation ---
History of Present Illness Consult date: 07/13/19 Reason for Consult: Stroke Chief complaint: Seizure on admission History of present illness: Patient is a 44-year-old woman with a history of hypertension, CHF, CAD, diabetes mellitus, obesity, ANDRÉS, history of AICD placement, history of stroke with residual left-sided weakness and visual deficits. She was admitted on 07/07/2019 for seizure-like episodes. Patient was then started on Keppra, after which she has not had any further episodes. CT scan performed yesterday revealed new infarct in the left frontal region, which appears that it may have evolved since initial CT that was done on admission. Patient was initially on [place] was at home, however per her , it is uncertain if she had been compliant with this. Patient states that she is not certain and does not remember if she was taking this medication as required. Her states that it is very possible that she was noncompliant with it. Patient was previously found to have an LV laminar thrombus on echocardiogram in November 2018, and was started on anticoagulation after that. Past History Past Medical History: other (hypertension, CHF, CAD, diabetes mellitus, obesity, ANDRÉS, history of AICD placement, history of stroke with residual left-sided weakness and visual deficits) Social history: lives with family Family history: other (grandmother also had a history of possible strokes in the past.) Medications and Allergies Allergies Allergy/AdvReac Type Severity Reaction Status Date / Time No Known Allergies Allergy Verified 12/01/18 12:19 Home Medications Medication Instructions Recorded Confirmed Last Taken Type Aspirin EC [Halfprin EC] 81 mg PO QDAY #30 tablet. 08/26/14 12/02/18 Unknown Rx Rivaroxaban [Xarelto] 20 mg PO DAILY 11/19/14 12/02/18 Unknown History Acetaminophen [Acetaminophen TAB] 650 mg PO Q4H PRN #15 tablet 12/04/18 Unknown Rx Carvedilol [Coreg] 6.25 mg PO BID #30 tablet 12/04/18 Unknown Rx Furosemide [Lasix TAB] 40 mg PO QDAY #30 tablet 12/04/18 Unknown Rx Lisinopril [Zestril TAB] 20 mg PO QDAY #30 tablet 12/04/18 Unknown Rx Spironolactone [Aldactone] 25 mg PO QDAY #30 tablet 12/04/18 Unknown Rx Active Meds: Active Medications Acetaminophen (Tylenol) 650 mg PO Q4H PRN PRN Reason: Pain MILD(1-3)/Fever >100.5/OAKES Last Admin: 07/11/19 09:56 Dose: 650 mg Documented by: Aspirin (Halfprin Ec) 81 mg PO QDAY [facility] Last Admin: 07/13/19 11:19 Dose: 81 mg Documented by: Atorvastatin Calcium (Lipitor) 80 mg PO QHS [facility] Last Admin: 07/12/19 21:54 Dose: 80 mg Documented by: Bisacodyl (Dulcolax) 10 mg ND QDAY PRN PRN Reason: Constipation Carvedilol (Coreg) 6.25 mg PO BID [facility] Last Admin: 07/13/19 11:21 Dose: 6.25 mg Documented by: Docusate Sodium (Colace) 100 mg PO BID [facility] Last Admin: 07/13/19 11:21 Dose: 100 mg Documented by: Famotidine (Pepcid) 10 mg PO BID [facility] Last Admin: 07/13/19 11:19 Dose: 10 mg Documented by: Furosemide (Lasix) 40 mg PO QDAY [facility] Last Admin: 07/13/19 11:22 Dose: 40 mg Documented by: Hydralazine HCl (Apresoline) 5 mg IV Q6H PRN PRN Reason: Hypertension Last Admin: 07/13/19 08:11 Dose: 5 mg Documented by: Levetiracetam (Keppra) 750 mg PO BID [facility] Last Admin: 07/13/19 11:20 Dose: 750 mg Documented by: Lisinopril (Zestril) 20 mg PO QDAY [facility] Last Admin: 07/13/19 11:20 Dose: 20 mg Documented by: Magnesium Hydroxide (Milk Of Magnesia) 30 ml PO Q4H PRN PRN Reason: Constipation Metoclopramide HCl (Reglan) 10 mg PO Q6H PRN PRN Reason: Nausea And Vomiting Ondansetron HCl (Zofran) 4 mg IV Q8H PRN PRN Reason: Nausea And Vomiting Promethazine HCl (Phenergan) 25 mg ND Q6H PRN PRN Reason: Nausea And Vomiting Sodium Chloride (Sodium Chloride Flush Syringe 10 Ml) 10 ml IV PRN PRN PRN Reason: LINE FLUSH Last Admin: 07/10/19 22:46 Dose: 10 ml Documented by: Spironolactone (Aldactone) 25 mg PO QDAY [facility] Last Admin: 07/13/19 11:20 Dose: 25 mg Documented by: Warfarin Sodium (Coumadin) 5 mg PO DAILY@1700 [facility] Review of Systems All systems: negative Neurological: seizures Physical Examination - Vital Signs Vital Signs: Vital Signs Temp Pulse Resp BP Pulse Ox 98 F 73 17 151/98 95 07/07/19 02:00 07/07/19 02:00 07/07/19 02:00 07/07/19 02:00 07/07/19 02:00 - Physical Exam Narrative exam: Patient is awake, alert, oriented 3 minus month. Follows complex commands. PERRL, diminished visual rivera bilaterally in peripheral rivera, able to see in the central field. No facial weakness noted, tongue midline, bilaterally intact to light touch. 4/5 strength in left upper and lower extremity, 5/5 strength in right upper and lower extremity. 3+ reflexes in left upper and lower extremity, 2+ reflexes in right upper and lower extremity. Decreased sensation on right lower extremity. Has mild notable deficits bilaterally in finger to nose and heel to molina, which is likely patient's baseline given previous strokes. - Constitutional General appearance: comfortable - EENT EENT: Present: ATNC, PERRL, mucous membranes moist, hearing intact - Respiratory Respiratory: Present: lungs clear, normal breath sounds - Cardiovascular Cardiovascular: Present: regular rate, normal S1, normal S2 Extremities: Present: no clubbing, cyanosis, no inflammation - Gastrointestinal Gastrointestinal: Present: normoactive bowel sounds, soft, non-tender - Integumentary Integumentary: Present: normal - Musculoskeletal Musculoskeletal: Present: no fluid collection, normal range of motion - Psychiatric Psychiatric: Present: mood/affect appropriate - Level of Consciousness 1a. Level of Consciousness: alert/keenly responsive - LOC Questions 1b. LOC Questions: answers 1 question correctly - LOC Command 1c. LOC Commands: performs tasks correctly - Best Gaze 2. Best Gaze: normal - Visual 3. Visual: partial hemianopia - Facial Palsy 4. Facial Palsy: normal symmetrical movement - Motor Arm 5a. Motor Arm Left: no drift 5b. Motor Arm Right: no drift - Motor Leg 6a. Motor Leg Left: no drift 6b. Motor Leg Right: no drift - Limb Ataxia 7. Limb Ataxia: present 2 limbs - Sensory 8. Sensory: mild/moderate sensory loss - Best Language 9. Best Language: no aphasia - Dysarthria 10. Dysarthria: normal - Extinction and Inattention 11. Extinction/Inattention: no abnormality - Scoring Total Score: 5 Stroke Severity: Moderate Stroke Results - Laboratory Findings CBC and BMP: 07/07/19 01:59 07/07/19 01:59 Abnormal Lab Findings: Abnormal Labs 07/07/19 07/07/19 07/07/19 01:35 01:59 01:59 RDW 21.1 H Plt Count 134 L [place] % (Auto) 9.4 H PT 15.0 H INR 1.21 H APTT 66.1 H* Potassium Glucose POC Glucose 109 H Troponin T 07/07/19 07/07/19 07/07/19 01:59 06:42 11:46 RDW Plt Count [place] % (Auto) PT INR APTT Potassium 3.5 L Glucose 103 H POC Glucose Troponin T 0.409 H* 0.408 H* 0.412 H* 07/08/19 07/08/19 07/09/19 05:00 13:18 04:09 RDW Plt Count [place] % (Auto) PT 15.2 H 15.4 H INR 1.23 H 1.25 H APTT Potassium Glucose POC Glucose 113 H Troponin T 07/10/19 07/10/19 07/10/19 05:59 12:13 16:05 RDW Plt Count [place] % (Auto) PT 15.7 H INR 1.28 H APTT Potassium Glucose POC Glucose 154 H 116 H Troponin T 07/11/19 07/12/19 07/13/19 07:48 05:29 05:26 RDW Plt Count [place] % (Auto) PT 16.6 H 17.8 H 21.2 H INR 1.38 H 1.51 H 1.88 H APTT Potassium Glucose POC Glucose Troponin T Assessment and Plan Patient is a 44-year-old woman with a history of hypertension, CHF, CAD, diabetes mellitus, obesity, ANDRÉS, history of AICD placement, history of stroke with residual left-sided weakness and visual deficits, who initially presented on 07/07/2019 with a seizure-like episode. According the patient's clinical findings, it is likely that the patient has had a subacute ischemic stroke, as is evidenced on repeat CT head scan that was done today, which has likely evolved since initial CT scan was done on admission, which retrospectively also may show some evidence of infarct at that time. Patient also has an LV thrombus, which was noted on echocardiogram done in November 2018. It is uncertain if she was compliant with requests, however patient and her state that it is possible that she was noncompliant with this. Plan: 1. Subacute stroke: - Repeat CT head shows subacute ischemic stroke in the left frontal region. Likely etiology is due to underlying LV thrombus. - Unable to have MRI due to AICD. Patient was likely noncompliant with Eliquis prior to admission. CT head done 07/13/2019 also shows some evidence of possible small petechial hemorrhage. 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 It was felt that the risks of repeated strokes outweighs the current risk of hemorrhagic transformation from subacute stroke, given the size of the subacute stroke in the left frontal region, and the fact that it has been approximately 6 days since onset of the stroke. Patient and her also agreed to continue with Coumadin at this time, once ricin benefits were discussed with them. - Cardiology further recommended to stop Lovenox at this time, and reduce warfarin dose to 5 mg. The patient may have a lower INR goal of approximately 1.8-2. - Will repeat a CT head Thursday, to check for any hemorrhagic transformation. - Can check CT head earlier if there is any clinical change. - Will repeat echo, to re-assess LV thrombus. - Will continue to closely monitor neurologic exam. - Plan of care of was discussed with primary team, cardiology, patient and caregiver/. 2. Hypertension: - Recommend BP target or normotension, as it has been >48 hours since symptom onset. 3. Seizure: - Continue keppra. Thank you for allowing me to take part in the care of this patient. John Serna MD Neurology
[2019-07-13] MEDS: COUMADIN PO SCH (18:52)
[2019-07-14] MEDS: APRESOLINE IV PRN (01:13)
[2019-07-14 06:05] LABS: INR 2.05 (0.87-1.13)
[2019-07-14] MEDS: ALDACTONE PO SCH (09:54)
[2019-07-14] MEDS: LASIX PO SCH (09:54)
[2019-07-14] MEDS: PEPCID PO SCH ×2 (09:54→21:19)
[2019-07-14] MEDS: KEPPRA PO SCH ×2 (09:54→21:20)
[2019-07-14] MEDS: COREG PO SCH ×2 (09:54→21:19)
[2019-07-14] MEDS: COLACE PO SCH ×2 (09:54→21:19)
[2019-07-14] MEDS: TYLENOL PO PRN (09:55)
[2019-07-14] MEDS: ZESTRIL PO SCH (09:55)
[2019-07-14] MEDS: HALFPRIN EC PO SCH (09:56)
--- NOTE | 2019-07-14 10:55 | Progress Note ---
Assessment and Plan Patient is a 44-year-old woman with a history of hypertension, CHF, CAD, diabetes mellitus, obesity, ANDRÉS, history of AICD placement, history of stroke with residual left-sided weakness and visual deficits, who initially presented on 07/07/2019 with a seizure-like episode. According the patient's clinical findings, it is likely that the patient has had a subacute ischemic stroke, as is evidenced on repeat CT head scan that was done today, which has likely evolved since initial CT scan was done on admission, which retrospectively also may show some evidence of infarct at that time. Patient also has an LV thrombus, which was noted on echocardiogram done in November 2018. It is uncertain if she was compliant with requests, however patient and her state that it is possible that she was noncompliant with this. Plan: 1. Subacute stroke: - Repeat CT head shows subacute ischemic stroke in the left frontal region. Likely etiology is due to underlying LV thrombus. - Unable to have MRI due to AICD. Patient was likely noncompliant with Eliquis prior to admission. CT head done 07/13/2019 also shows some evidence of possible small petechial hemorrhage. 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 It was felt that the risks of repeated strokes outweighs the current risk of hemorrhagic transformation from subacute stroke, given the size of the subacute stroke in the left frontal region, and the fact that it has been approximately 6 days since onset of the stroke. Patient and her also agreed to continue with Coumadin at this time, once ricin benefits were discussed with them. - Cardiology further recommended to stop Lovenox at this time, and reduce warfarin dose to 5 mg. The patient may have a lower INR goal of approximately 1.8-2. - Will repeat a CT head Thursday, to check for any hemorrhagic transformation. - Can check CT head earlier if there is any clinical change. - Will repeat echo, to re-assess LV thrombus- Pending - Will continue to closely monitor neurologic exam. 2. Hypertension: - Recommend BP target or normotension, as it has been >48 hours since symptom onset. 3. Seizure: - Continue keppra. Thank you for allowing me to take part in the care of this patient. John Serna MD Neurology Subjective Date of service: 07/14/19 Principal diagnosis: Seizure, Stroke Interval history: No acute events overnight. Objective - Exam Narrative Exam: Patient is awake, alert, oriented 3 minus month. Follows complex commands. PERRL, diminished visual rivera bilaterally in peripheral rivera, able to see in the central field. No facial weakness noted, tongue midline, bilaterally intact to light touch. 4/5 strength in left upper and lower extremity, 5/5 strength in right upper and lower extremity. 3+ reflexes in left upper and lower extremity, 2+ reflexes in right upper and lower extremity. Decreased sensation on right lower extremity. Has mild notable deficits bilaterally in finger to nose and heel to molina, which is likely patient's baseline given previous strokes. - Vital Sign Vital Signs - 12hr 07/13/19 07/14/19 07/14/19 23:07 00:00 03:13 Temperature 97.8 F 98.3 F Pulse Rate 61 60 69 Respiratory 19 18 Rate Blood Pressure 174/100 165/92 O2 Sat by Pulse 93 94 Oximetry 07/14/19 07/14/19 07/14/19 07:44 09:54 09:55 Temperature 97.4 F L Pulse Rate 62 62 62 Respiratory 16 Rate Blood Pressure 147/71 147/71 147/71 O2 Sat by Pulse 93 Oximetry - General Apperance Constitutional: comfortable - EENT EENT: ATNC, PERRL, mucous membranes moist, hearing intact - Respiratory Respiratory: lungs clear, normal breath sounds - Cardiovascular Cardiovascular: regular rate, normal S1, normal S2 Extremities: no clubbing, cyanosis, no inflammation - Gastrointestinal Gastrointestinal: normoactive bowel sounds, soft, non-tender - Integumentary Integumentary: normal - Musculoskeletal Musculoskeletal: no fluid collection, normal range of motion - Psychiatric Psychiatric: mood/affect appropriate - Laboratory Findings CBC and BMP: 07/07/19 01:59 07/07/19 01:59 Abnormal Lab Findings: Abnormal Labs 07/07/19 07/07/19 07/07/19 01:35 01:59 01:59 RDW 21.1 H Plt Count 134 L [place] % (Auto) 9.4 H PT 15.0 H INR 1.21 H APTT 66.1 H* Potassium Glucose POC Glucose 109 H Troponin T 07/07/19 07/07/19 07/07/19 01:59 06:42 11:46 RDW Plt Count [place] % (Auto) PT INR APTT Potassium 3.5 L Glucose 103 H POC Glucose Troponin T 0.409 H* 0.408 H* 0.412 H* 07/08/19 07/08/19 07/09/19 05:00 13:18 04:09 RDW Plt Count [place] % (Auto) PT 15.2 H 15.4 H INR 1.23 H 1.25 H APTT Potassium Glucose POC Glucose 113 H Troponin T 07/10/19 07/10/19 07/10/19 05:59 12:13 16:05 RDW Plt Count [place] % (Auto) PT 15.7 H INR 1.28 H APTT Potassium Glucose POC Glucose 154 H 116 H Troponin T 07/11/19 07/12/19 07/13/19 07:48 05:29 05:26 RDW Plt Count [place] % (Auto) PT 16.6 H 17.8 H 21.2 H INR 1.38 H 1.51 H 1.88 H APTT Potassium Glucose POC Glucose Troponin T 07/14/19 05:08 RDW Plt Count [place] % (Auto) PT 22.7 H INR 2.05 H APTT Potassium Glucose POC Glucose Troponin T
--- NOTE | 2019-07-14 13:01 | Progress Note ---
Assessment and Plan Seizures with post-ictal lethargy Sub-acute stroke Hx of Laminated LV thrombus anticoagulation changed to warfarin this admission. Neurology has lower INR goal of approximately 1.8-2. Nonischemic cardiomyopathy, EF 20% Presence of AICD, subcutaneous Obesity Continue medical therapy for nonischemic cardiomyopathy and anticoagulation for left ventricular thrombus. Subjective Date of service: 07/14/19 Principal diagnosis: Seizure, Stroke Interval history: Patient has no cardiac complaints. Objective Vital Signs Temp Pulse Resp BP Pulse Ox 07/14/19 10:00 63 16 07/14/19 09:55 62 147/71 07/14/19 09:54 62 147/71 07/14/19 07:44 97.4 F L 62 16 147/71 93 07/14/19 03:13 98.3 F 69 18 165/92 94 07/14/19 00:00 60 07/13/19 23:07 97.8 F 61 19 174/100 93 07/13/19 22:29 102/74 07/13/19 19:38 98.0 F 49 L 18 156/86 95 07/13/19 16:17 98.0 F 53 L 18 108/80 94 - Physical Examination General: No Apparent Distress HEENT: Positive: PERRL Neck: Positive: neck supple Cardiac: Positive: Reg Rate and Rhythm Lungs: Positive: Decreased Breath Sounds Neuro: Positive: Grossly Intact Abdomen: Positive: Soft Extremities: Absent: edema - Labs and Meds Coagulation 07/14/19 Range/Units 05:08 PT 22.7 H (12.2-14.9) Sec. INR 2.05 H (0.87-1.13)
[2019-07-14] MEDS: COUMADIN PO SCH (17:35)
--- NOTE | 2019-07-14 20:26 | Progress Note ---
Assessment and Plan Assessment and plan: --Subacute ischemic infarct suspected in the left frontal lobe[CT head 07/13/19]: Possible petechial hemorrhage..Patient clinically stable[INR goal reduced to 1.8-2.0 f/u CT head tomorrow to check for hemorrhagic transformation --Laminated LV thrombus, we'll resume anticoagulation with the eliquis, bridge with Lovenox Target INR 1.8-2.0 --Acute seizure with postictal lethargy started on Keppra IV, continue Ativan and IBS needed CT head without any acute finding Cannot obtain MRI as patient has ICD in place Consulted neurologic, will follow recommendation --Chronic systolic CHF (congestive heart failure) Ef 15-20%: Has history of nonischemic cardiomyopathy with EF 15-20% Cardiology consulted, will continue home medications --Elevated troponin, chronically elevated Cardiologic CONSULTED --Diabetes Mellitus: ADA diet, insulin, accu check --HTN (hypertension): Monitor bp q shift, continue medical management --Obstructive sleep apnea, CPAP at bedtime --Old CVA, continue anticoagulation, statin, neuro check --Morbid obesity, dietary recommendations as appropriate when clinically more stable --DVT prophylaxis, eliquis Monitor closely and adjust management as needed Follow neurology evaluation and recommendations Plan of care is reviewed with the patient, her nurse and case management History Interval history: Since seen and examined this morning with severe Patient thinks but no new complaints Alert awake oriented 3 Vital signs reviewed Hospitalist Physical - Constitutional Vitals: Temp Pulse Resp BP Pulse Ox 97.7 F 61 16 146/90 97 07/14/19 19:40 07/14/19 19:40 07/14/19 19:40 07/14/19 19:40 07/14/19 19:40 General appearance: Present: no acute distress, well-nourished, obese - EENT Eyes: Present: PERRL, EOM intact - Neck Neck: Present: supple, normal ROM - Respiratory Respiratory effort: normal Respiratory: bilateral: diminished, negative: rales, rhonchi, wheezing - Cardiovascular Rhythm: regular Heart Sounds: Present: S1 & S2 - Extremities Extremities: no ischemia, No edema - Abdominal General gastrointestinal: soft, non-tender, non-distended, normal bowel sounds - Integumentary Integumentary: Present: clear, warm - Psychiatric Psychiatric: appropriate mood/affect, cooperative - Neurologic Neurologic: CNII-XII intact, moves all extremities Results - Labs CBC & Chem 7: 07/07/19 01:59 07/07/19 01:59 Labs: Laboratory Last Values WBC 5.3 K/mm3 (4.5-11.0) 07/07/19 01:59 RBC 4.42 M/mm3 (3.65-5.03) 07/07/19 01:59 Hgb 12.3 gm/dl (10.1-14.3) 07/07/19 01:59 Hct 38.9 % (30.3-42.9) 07/07/19 01:59 MCV 88 fl (79-97) 07/07/19 01:59 MCH 28 pg (28-32) 07/07/19 01:59 MCHC 32 % (30-34) 07/07/19 01:59 RDW 21.1 % (13.2-15.2) H 07/07/19 01:59 Plt Count 134 K/mm3 (140-440) L 07/07/19 01:59 Lymph % (Auto) 25.0 % (13.4-35.0) 07/07/19 01:59 Kendall % (Auto) 9.4 % (0.0-7.3) H 07/07/19 01:59 Eos % (Auto) 1.9 % (0.0-4.3) 07/07/19 01:59 Baso % (Auto) 0.8 % (0.0-1.8) 07/07/19 01:59 Lymph # 1.3 K/mm3 (1.2-5.4) 07/07/19 01:59 Kendall # 0.5 K/mm3 (0.0-0.8) 07/07/19 01:59 Eos # 0.1 K/mm3 (0.0-0.4) 07/07/19 01:59 Baso # 0.0 K/mm3 (0.0-0.1) 07/07/19 01:59 Seg Neutrophils % 62.9 % (40.0-70.0) 07/07/19 01:59 Seg Neutrophils # 3.3 K/mm3 (1.8-7.7) 07/07/19 01:59 PT 22.7 Sec. (12.2-14.9) H 07/14/19 05:08 INR 2.05 (0.87-1.13) H 07/14/19 05:08 APTT 66.1 Sec. (24.2-36.6) H* 07/07/19 01:59 Thrombin Time 17.3 Sec. (15.1-19.6) 07/07/19 01:59 Sodium 145 mmol/L (137-145) 07/07/19 01:59 Potassium 3.5 mmol/L (3.6-5.0) L 07/07/19 01:59 Chloride 104.9 mmol/L (98-107) 07/07/19 01:59 Carbon Dioxide 27 mmol/L (22-30) 07/07/19 01:59 Anion Gap 17 mmol/L 07/07/19 01:59 BUN 16 mg/dL (7-17) 07/07/19 01:59 Creatinine 1.0 mg/dL (0.7-1.2) 07/07/19 01:59 Estimated GFR > 60 ml/min 07/07/19 01:59 BUN/Creatinine Ratio 16 % 07/07/19 01:59 Glucose 103 mg/dL (65-100) H 07/07/19 01:59 POC Glucose 116 (70-105) H 07/10/19 16:05 Calcium 8.6 mg/dL (8.4-10.2) 07/07/19 01:59 Total Creatine Kinase 51 units/L (30-135) 07/07/19 11:46 CK-MB (CK-2) 1.6 ng/mL (0.0-4.0) 07/07/19 11:46 CK-MB (CK-2) Rel Index 3.1 (0-4) 07/07/19 11:46 Troponin T 0.412 ng/mL (0.00-0.029) H* 07/07/19 11:46 Triglycerides 56 mg/dL (2-149) 07/07/19 01:59 Cholesterol 111 mg/dL (50-199) 07/07/19 01:59 LDL Cholesterol Direct 55 mg/dL (50-130) 07/07/19 01:59 HDL Cholesterol 52 mg/dL (40-59) 07/07/19 01:59 Cholesterol/HDL Ratio 2.13 % 07/07/19 01:59 Active Medications - Current Medications Current Medications: Generic Name Dose Route Start Last Admin Trade Name Freq PRN Reason Stop Dose Admin Acetaminophen 650 mg 07/07/19 16:36 07/14/19 09:55 Tylenol PO 650 mg Q4H PRN Administration Pain MILD(1-3)/Fever >100.5/OAKES Atorvastatin Calcium 80 mg 07/07/19 22:00 07/13/19 22:28 Lipitor PO 80 mg QHS MAHOGANY Administration Bisacodyl 10 mg 07/07/19 10:[address] QDAY PRN Constipation Carvedilol 6.25 mg 07/07/19 22:00 07/14/19 09:54 Coreg PO 6.25 mg BID MAHOGANY Administration Docusate Sodium 100 mg 07/07/19 11:00 07/14/19 09:54 Colace PO 100 mg BID MAHOGANY Administration Famotidine 10 mg 07/11/19 10:00 07/14/19 09:54 Pepcid PO 10 mg BID MAHOGANY Administration Furosemide 40 mg 07/08/19 10:00 07/14/19 09:54 Lasix PO 40 mg QDAY MAHOGANY Administration Hydralazine HCl 5 mg 07/08/19 05:50 07/14/19 01:13 Apresoline IV 5 mg Q6H PRN Administration Hypertension Levetiracetam 750 mg 07/09/19 22:00 07/14/19 09:54 Keppra PO 750 mg BID MAHOGANY Administration Lisinopril 20 mg 07/08/19 10:00 07/14/19 09:55 Zestril PO 20 mg QDAY MAHOGANY Administration Magnesium Hydroxide 30 ml 07/07/19 10:28 Milk Of Magnesia PO Q4H PRN Constipation Metoclopramide HCl 10 mg 07/07/19 10:28 Reglan PO Q6H PRN Nausea And Vomiting Ondansetron HCl 4 mg 07/07/19 10:28 Zofran IV Q8H PRN Nausea And Vomiting Promethazine HCl 25 mg 07/07/19 10:[address] Q6H PRN Nausea And Vomiting Sodium Chloride 10 ml 07/07/19 10:28 07/10/19 22:46 Sodium Chloride Flush Syringe 10 Ml IV 10 ml PRN PRN Administration LINE FLUSH Spironolactone 25 mg 07/08/19 10:00 07/14/19 09:54 Aldactone PO 25 mg QDAY MAHOGANY Administration Warfarin Sodium 5 mg 07/13/19 18:41 07/14/19 17:35 Coumadin PO 5 mg DAILY@1700 MAHOGANY Administration Nutrition/Malnutrition Assess - Dietary Evaluation Nutrition/Malnutrition Findings: Nutrition Notes Start: 07/07/19 11:18 Freq: Status: Active Protocol: Document 07/08/19 10:43 PS (Rec: 07/08/19 11:07 PS [id number]) Co-Sign 07/08/19 10:43 LM Nutrition Notes Need for Assessment generated from: MD Order,Education Initial or Follow up Brief Note Current Diagnosis Diabetes,Hypertension,Heart Failure,Stroke Other Pertinent Diagnosis DVT, NV, pulmonary embolism, seizures Current Diet Mechanical Soft Pertinent Medications Coumadin Subjective/Other Information Pt. lethargic at time of visit , but at bedside. states pt. has been on coumadin before and she knows what it is. took Vitamin K and Medication handout. Nutrition Intervention Teaching Recipient Spouse Learning Readiness Good Teaching Methods Handout Response to Teaching Verbalize understanding Education Handouts Provided Vitamin K and Medication Barriers to Learning Cognitive/Verbal RD phone number provided Yes Patient aware of follow up options Yes Revisit per MD consult or patient Sign Off request:
[2019-07-15] MEDS ORDERED: DESYREL PO ONE (01:23)
[2019-07-15] MEDS ORDERED: ATIVAN PO PRN (01:23)
--- NOTE | 2019-07-15 01:36 | Event Note ---
44F sp CVA and Seizure who has remained compulsive and agitated she is vision impaired and has been confused, She fell a few days ago and hit her head -she has been on four point restraints due to fall risk, confusion and agitation -she has not had any further seizure like activity -ordered her low dose trazodone and melatonin qhs for insomnia - consult , ativan prn agitation -hope to be able to remove physical restraints if she improves on meds KANA RN at bedside
[2019-07-15] MEDS: MELATONIN PO SCH ×2 (01:50→23:12)
[2019-07-15 06:30] LABS: INR 2.23 (0.87-1.13)
--- NOTE | 2019-07-15 10:07 | Progress Note ---
Assessment and Plan Seizures with post-ictal lethargy Acute stroke Hx of Laminated LV thrombus anticoagulation changed to warfarin this admission. Target INR is 1.8-2.5 due to acute CVA. Nonischemic cardiomyopathy, EF 20% Presence of AICD, subcutaneous Obesity Continue medical therapy for nonischemic cardiomyopathy and anticoagulation for left ventricular thrombus. We will reduce coreg to 3.125 mg twice daily due to sinus bradycardia on telemetry. Subjective Date of service: 07/15/19 Principal diagnosis: Seizure, Stroke Interval history: Patient has no cardiac complaints. Bilateral wrist restraints in place. Sinus bradycardia on telemetry this morning. Objective Vital Signs Temp Pulse Resp BP Pulse Ox 07/15/19 08:06 97.6 F 18 163/97 07/15/19 04:00 98.2 F 50 L 12 143/82 93 07/15/19 03:00 60 07/14/19 23:53 98.2 F 54 L 12 161/99 94 07/14/19 19:40 97.7 F 61 16 146/90 97 07/14/19 17:04 97.6 F 50 L 14 130/74 93 - Physical Examination General: No Apparent Distress HEENT: Positive: PERRL Neck: Positive: trachea midline Cardiac: Positive: Bradycardia Lungs: Positive: Decreased Breath Sounds Neuro: Positive: Grossly Intact Extremities: Absent: edema - Labs and Meds Coagulation 07/15/19 Range/Units 06:06 PT 24.3 H (12.2-14.9) Sec. INR 2.23 H (0.87-1.13)
[2019-07-15] MEDS: ZESTRIL PO SCH (10:45)
[2019-07-15] MEDS: KEPPRA PO SCH ×2 (10:45→23:12)
[2019-07-15] MEDS: PEPCID PO SCH ×2 (10:45→23:11)
[2019-07-15] MEDS: COLACE PO SCH ×2 (10:45→23:11)
[2019-07-15] MEDS: LASIX PO SCH (10:46)
[2019-07-15] MEDS: ALDACTONE PO SCH (10:46)
[2019-07-15] MEDS: COREG PO SCH ×3 (10:47→23:00)
--- NOTE | 2019-07-15 14:27 | Consultation ---
History of Present Illness - Reason for Consult Consult date: 07/15/19 Reason for consult: Mental Health Evaluation Requesting physician: STACEY SAM - Chief Complaint Chief complaint: "I an not sure why I'm here" - History of Present Psychiatric Illness 44 y.o. Aa female who presented to the ER for unresponsiveness. Per the second CT of the head, the patient may have experienced an ischemic infarct in her left frontal lobe. Psychiatry was consulted to see the patient for behavioral disturbance. Today the patient was calm and cooperative during the assessment. She stated that she do not have any idea why she's in the hospital. She was able to state her and name the current/past [place] Presidents. She stated that her memory "is a little off." She acknowledged a hx of seizures and stated that she had a stroke in the past. She could not recall what happened last night reference being put in restraints. She denies a mental health dx. She denies SI/HI's and AVH's. She denies a poor appetite, but acknowledged that she didn't sleep well last night because she wanted to know why she was in the hospital. She denies recreational drug use and alcohol consumption (etoh). Medications and Allergies Allergies Allergy/AdvReac Type Severity Reaction Status Date / Time No Known Allergies Allergy Verified 12/01/18 12:19 Home Medications Medication Instructions Recorded Confirmed Last Taken Type Aspirin EC [Halfprin EC] 81 mg PO QDAY #30 tablet. 08/26/14 12/02/18 Unknown Rx Rivaroxaban [Xarelto] 20 mg PO DAILY 11/19/14 12/02/18 Unknown History Acetaminophen [Acetaminophen TAB] 650 mg PO Q4H PRN #15 tablet 12/04/18 Unknown Rx Carvedilol [Coreg] 6.25 mg PO BID #30 tablet 12/04/18 Unknown Rx Furosemide [Lasix TAB] 40 mg PO QDAY #30 tablet 12/04/18 Unknown Rx Lisinopril [Zestril TAB] 20 mg PO QDAY #30 tablet 12/04/18 Unknown Rx Spironolactone [Aldactone] 25 mg PO QDAY #30 tablet 12/04/18 Unknown Rx Active Meds: Active Medications Acetaminophen (Tylenol) 650 mg PO Q4H PRN PRN Reason: Pain MILD(1-3)/Fever >100.5/OAKES Last Admin: 07/14/19 09:55 Dose: 650 mg Documented by: Atorvastatin Calcium (Lipitor) 80 mg PO QHS [facility] Last Admin: 07/14/19 21:20 Dose: 80 mg Documented by: Bisacodyl (Dulcolax) 10 mg NE QDAY PRN PRN Reason: Constipation Carvedilol (Coreg) 3.125 mg PO BID [facility] Last Admin: 07/15/19 10:47 Dose: 3.125 mg Documented by: Docusate Sodium (Colace) 100 mg PO BID [facility] Last Admin: 07/15/19 10:45 Dose: 100 mg Documented by: Famotidine (Pepcid) 10 mg PO BID [facility] Last Admin: 07/15/19 10:45 Dose: 10 mg Documented by: Furosemide (Lasix) 40 mg PO QDAY [facility] Last Admin: 07/15/19 10:46 Dose: 40 mg Documented by: Hydralazine HCl (Apresoline) 5 mg IV Q6H PRN PRN Reason: Hypertension Last Admin: 07/14/19 01:13 Dose: 5 mg Documented by: Levetiracetam (Keppra) 750 mg PO BID [facility] Last Admin: 07/15/19 10:45 Dose: 750 mg Documented by: Lisinopril (Zestril) 20 mg PO QDAY [facility] Last Admin: 07/15/19 10:45 Dose: 20 mg Documented by: Lorazepam (Ativan) 0.5 mg PO Q4H PRN PRN Reason: Agitation Magnesium Hydroxide (Milk Of Magnesia) 30 ml PO Q4H PRN PRN Reason: Constipation Melatonin (Melatonin) 5 mg PO QHS [facility] Last Admin: 07/15/19 01:50 Dose: 5 mg Documented by: Metoclopramide HCl (Reglan) 10 mg PO Q6H PRN PRN Reason: Nausea And Vomiting Ondansetron HCl (Zofran) 4 mg IV Q8H PRN PRN Reason: Nausea And Vomiting Promethazine HCl (Phenergan) 25 mg NE Q6H PRN PRN Reason: Nausea And Vomiting Sodium Chloride (Sodium Chloride Flush Syringe 10 Ml) 10 ml IV PRN PRN PRN Reason: LINE FLUSH Last Admin: 07/10/19 22:46 Dose: 10 ml Documented by: Spironolactone (Aldactone) 25 mg PO QDAY [facility] Last Admin: 07/15/19 10:46 Dose: 25 mg Documented by: Trazodone HCl (Desyrel) 25 mg PO QHS [facility] Warfarin Sodium (Coumadin) 5 mg PO DAILY@1700 [facility] Last Admin: 07/14/19 17:35 Dose: 5 mg Documented by: Past psychiatric history - Past Medical History Past Medical History: hypertension, seizures, stroke Past Surgical History: Other (AICD placement) - past Psychiatric treatment and history psychiatric treatment history: Denies a psy hx and fam psy hx. - Social History Social history: lives with family Mental Status Exam - Vital signs Last Vital Signs Temp 98.1 F 07/15/19 12:00 Pulse 58 L 07/15/19 12:00 Resp 19 07/15/19 12:00 BP 142/90 07/15/19 12:00 Pulse Ox 93 07/15/19 04:00 - Exam Narrative exam: MSE: Appearance: calm, cooperative Behavior: regular eye contact Speech: regular rate and loud tone Mood: "okay" Affect: congruent to mood Thought Process: circumstantial Thought Content: denies SI/HI's with AVH's Motor Activity: ambulatory Cognition: A/Ox 3 Insight: fair Judgment: fair + Results Result Diagrams: 07/16/19 11:02 07/07/19 01:59 Abnormal lab results 07/15/19 Range/Units 06:06 PT 24.3 H (12.2-14.9) Sec. INR 2.23 H (0.87-1.13) All other labs normal. Assessment and Plan Assessment and plan: Impression: Possibly residual from recent infarct. Today the patient was calm and cooperative during the assessment. The patient isn't in restraints. Neuro is following the patient. Recommendation/Plan: Gather collateral information and follow up with the patient in 24 hours. Continue Melatonin 5 mg PO HS for sleep. Dispo: The patient is pending rehab placement per Case Mgmt. Staffed with Dr Ian Briseno.
--- NOTE | 2019-07-15 15:58 | Progress Note ---
Assessment and Plan Patient is a 44-year-old woman with a history of hypertension, CHF, CAD, diabetes mellitus, obesity, ANDRÉS, history of AICD placement, history of stroke with residual left-sided weakness and visual deficits, who initially presented on 07/07/2019 with a seizure-like episode. According the patient's clinical findings, it is likely that the patient has had a subacute ischemic stroke, as is evidenced on repeat CT head scan that was done today, which has likely evolved since initial CT scan was done on admission, which retrospectively also may show some evidence of infarct at that time. Patient also has an LV thrombus, which was noted on echocardiogram done in November 2018. It is uncertain if she was compliant with requests, however patient and her state that it is possible that she was noncompliant with this. Plan: 1. Subacute stroke: - Repeat CT head today does not show significant increase in petechial hemorrhage. No major ICH. Likely etiology is due to underlying LV thrombus. - Unable to have MRI due to AICD. - Echo: EF 10-15%, LA moderately-severely dilated, LV laminated thrombus once again noted. Bubble study negative. Patient was likely noncompliant with Eliquis prior to admission. CT head done 07/13/2019 also shows some evidence of possible small petechial hemorrhage. Risks and benefits of continuing Coumadin were discussed with the patient, her american sign language teacher , primary attending, and cardiology. It was felt that the risks of repeated strokes outweighs the current risk of hemorrhagic transfor mation from subacute stroke, given the size of the subacute stroke in the left frontal region, and the fact that it had been >7 days since onset of the stroke when patient was in therapeutic range. Patient and her also agreed to continue with Coumadin at this time, once risks benefits were discussed with them. - Cardiology further recommended to stop Lovenox at this time, and reduce warfa rin dose to 5 mg. The patient will have a lower INR goal of approximately 1.8- 2, according to discussion with cardiology. - Can check CT head if there is any clinical change. - Will require close neurologic monitoring. 2. Hypertension: - Recommend BP target or normotension, as it has been >48 hours since symptom onset. 3. Seizure: - Continue keppra. - Will sign off as I am not covering neurology service over the weekend. Recommend for neurologist who is covering weekend to be consulted for further neurologic monitoring/management. Thank you for allowing me to take part in the care of this patient. John Serna MD Neurology Subjective Date of service: 07/15/19 Principal diagnosis: Seizure, Stroke Interval history: No acute events overnight. Objective - Exam Narrative Exam: Patient is awake, alert, oriented 3 minus month. Follows complex commands. PERRL, diminished visual rivera bilaterally in peripheral rivera, able to see in the central field. No facial weakness noted, tongue midline, bilaterally intact to light touch. 4/5 strength in left upper and lower extremity, 5/5 strength in right upper and lower extremity. 3+ reflexes in left upper and lower extremity, 2+ reflexes in right upper and lower extremity. Decreased sensation on right lower extremity. Has mild notable deficits bilaterally in finger to nose and heel to molina, which is likely patient's baseline given previous strokes. - Vital Sign Vital Signs - 12hr 07/15/19 07/15/19 07/15/19 04:00 08:06 10:00 Temperature 98.2 F 97.6 F Pulse Rate 50 L 53 L Pulse Rate [ 58 L Apical] Pulse Rate [ 58 L Left Dorsalis Pedis] Pulse Rate [ 58 L Left Radial] Pulse Rate [ 58 L Right Dorsalis Pedis] Pulse Rate [ 58 L Right Radial] Respiratory 12 18 19 Rate Blood Pressure 143/82 163/97 Blood Pressure [Left] O2 Sat by Pulse 93 98 Oximetry 07/15/19 07/15/19 07/15/19 10:45 10:46 10:47 Temperature Pulse Rate 49 L 50 L 50 L Pulse Rate [ Apical] Pulse Rate [ Left Dorsalis Pedis] Pulse Rate [ Left Radial] Pulse Rate [ Right Dorsalis Pedis] Pulse Rate [ Right Radial] Respiratory Rate Blood Pressure 179/105 179/105 179/105 Blood Pressure [Left] O2 Sat by Pulse Oximetry 07/15/19 12:00 Temperature 98.1 F Pulse Rate 58 L Pulse Rate [ Apical] Pulse Rate [ Left Dorsalis Pedis] Pulse Rate [ Left Radial] Pulse Rate [ Right Dorsalis Pedis] Pulse Rate [ Right Radial] Respiratory 19 Rate Blood Pressure Blood Pressure 142/90 [Left] O2 Sat by Pulse Oximetry - General Apperance Constitutional: comfortable - EENT EENT: ATNC, PERRL, mucous membranes moist, hearing intact - Respiratory Respiratory: lungs clear, normal breath sounds - Cardiovascular Cardiovascular: regular rate, normal S1, normal S2 Extremities: no clubbing, cyanosis, no inflammation - Gastrointestinal Gastrointestinal: normoactive bowel sounds, soft, non-tender - Integumentary Integumentary: normal - Musculoskeletal Musculoskeletal: no fluid collection, no pain - Psychiatric Psychiatric: mood/affect appropriate - Laboratory Findings CBC and BMP: 07/07/19 01:59 07/07/19 01:59 Abnormal Lab Findings: Abnormal Labs 07/07/19 07/07/19 07/07/19 01:35 01:59 01:59 RDW 21.1 H Plt Count 134 L Hand % (Auto) 9.4 H PT 15.0 H INR 1.21 H APTT 66.1 H* Potassium Glucose POC Glucose 109 H Troponin T 07/07/19 07/07/19 07/07/19 01:59 06:42 11:46 RDW Plt Count Hand % (Auto) PT INR APTT Potassium 3.5 L Glucose 103 H POC Glucose Troponin T 0.409 H* 0.408 H* 0.412 H* 07/08/19 07/08/19 07/09/19 05:00 13:18 04:09 RDW Plt Count Hand % (Auto) PT 15.2 H 15.4 H INR 1.23 H 1.25 H APTT Potassium Glucose POC Glucose 113 H Troponin T 07/10/19 07/10/19 07/10/19 05:59 12:13 16:05 RDW Plt Count Hand % (Auto) PT 15.7 H INR 1.28 H APTT Potassium Glucose POC Glucose 154 H 116 H Troponin T 07/11/19 07/12/19 07/13/19 07:48 05:29 05:26 RDW Plt Count Hand % (Auto) PT 16.6 H 17.8 H 21.2 H INR 1.38 H 1.51 H 1.88 H APTT Potassium Glucose POC Glucose Troponin T 07/14/19 07/15/19 05:08 06:06 RDW Plt Count Hand % (Auto) PT 22.7 H 24.3 H INR 2.05 H 2.23 H APTT Potassium Glucose POC Glucose Troponin T
--- NOTE | 2019-07-15 16:51 | Cat Scan Report ---
CT head/brain wo con INDICATION / CLINICAL INFORMATION: 44 years Female; stroke. TECHNIQUE: Routine CT head without contrast. All CT scans at this location are performed using CT dos e reduction for ALARA by means of automated exposure control. COMPARISON: The study is compared to the previous CT of 07/13/2019. Brain: There are old SAMPLE PROCESSOR infarct with extensive encephalomalacia, greater on the right. There is also encephalomalacia with old right PICA infarct at. There is associated ex vacuo dilatation of the post erior lateral ventricles. The decreased attenuation within the right frontal lobe also appears reflect chronic ischemic changes at. However, there is more subtle decrease attenuation within the left frontal lobe which correlates with the earlier CT and would appear to represent evolving subacute infarct. There is mild sulcal ef facement within this region. There is no clear CT evidence of interval developing acute hemorrhage. ORBITS: No significant abnormality of visualized orbits. SINUSES / MASTOIDS: No significant abnormality the visualized paranasal sinuses or mastoid air cells. CRANIOCERVICAL JUNCTION: No significant abnormality. ADDITIONAL FINDINGS: There is again noted incidental hyperostosis frontalis interna. IMPRESSION: 1. The findings remain compatible with evolving infarct involving the left frontal lobe without CT ev idence of hemorrhagic transformation. 2. There are multiple old infarcts with associated encephalomalacia as detailed above. Signer Name: Tera Fagan MD Signed: 07/15/2019 4:46 PM Workstation Name: [id number]
[2019-07-15] MEDS: COUMADIN PO SCH ×2 (17:13→19:58)
--- NOTE | 2019-07-15 17:20 | Progress Note ---
History Interval history: --Subacute ischemic infarct suspected in the left frontal lobe[CT head 07/13/19]: Possible petechial hemorrhage..Patient clinically stable[INR goal reduced to 1.8-2.0 f/u CT head tomorrow to check for hemorrhagic transformation --Laminated LV thrombus, we'll resume anticoagulation with the eliquis, bridge with Lovenox Target INR 1.8-2.0 --Acute seizure with postictal lethargy started on Keppra IV, continue Ativan and IBS needed CT head without any acute finding Cannot obtain MRI as patient has ICD in place Consulted neurologic, will follow recommendation --Chronic systolic CHF (congestive heart failure) Ef 15-20%: Has history of nonischemic cardiomyopathy with EF 15-20% Cardiology consulted, will continue home medications --Elevated troponin, chronically elevated Cardiologic CONSULTED --Diabetes Mellitus: ADA diet, insulin, accu check --HTN (hypertension): Monitor bp q shift, continue medical management --Obstructive sleep apnea, CPAP at bedtime --Old CVA, continue anticoagulation, statin, neuro check --Morbid obesity, dietary recommendations as appropriate when clinically more stable --DVT prophylaxis, eliquis Monitor closely and adjust management as needed Follow neurology evaluation and recommendations Plan of care is reviewed with the patient, her nurse and case management Hospitalist Physical - Constitutional Vitals: Temp Pulse Resp BP Pulse Ox 98.1 F 58 L 19 142/90 98 07/15/19 12:00 07/15/19 12:00 07/15/19 12:00 07/15/19 12:00 07/15/19 10:00 General appearance: Present: no acute distress, well-nourished, obese Results - Labs CBC & Chem 7: 07/07/19 01:59 07/07/19 01:59 Labs: Laboratory Last Values WBC 5.3 K/mm3 (4.5-11.0) 07/07/19 01:59 RBC 4.42 M/mm3 (3.65-5.03) 07/07/19 01:59 Hgb 12.3 gm/dl (10.1-14.3) 07/07/19 01:59 Hct 38.9 % (30.3-42.9) 07/07/19 01:59 MCV 88 fl (79-97) 07/07/19 01:59 MCH 28 pg (28-32) 07/07/19 01:59 MCHC 32 % (30-34) 07/07/19 01:59 RDW 21.1 % (13.2-15.2) H 07/07/19 01:59 Plt Count 134 K/mm3 (140-440) L 07/07/19 01:59 Lymph % (Auto) 25.0 % (13.4-35.0) 07/07/19 01:59 [place] % (Auto) 9.4 % (0.0-7.3) H 07/07/19 01:59 Eos % (Auto) 1.9 % (0.0-4.3) 07/07/19 01:59 Baso % (Auto) 0.8 % (0.0-1.8) 07/07/19 01:59 Lymph # 1.3 K/mm3 (1.2-5.4) 07/07/19 01:59 [place] # 0.5 K/mm3 (0.0-0.8) 07/07/19 01:59 Eos # 0.1 K/mm3 (0.0-0.4) 07/07/19 01:59 Baso # 0.0 K/mm3 (0.0-0.1) 07/07/19 01:59 Seg Neutrophils % 62.9 % (40.0-70.0) 07/07/19 01:59 Seg Neutrophils # 3.3 K/mm3 (1.8-7.7) 07/07/19 01:59 PT 24.3 Sec. (12.2-14.9) H 07/15/19 06:06 INR 2.23 (0.87-1.13) H 07/15/19 06:06 APTT 66.1 Sec. (24.2-36.6) H* 07/07/19 01:59 Thrombin Time 17.3 Sec. (15.1-19.6) 07/07/19 01:59 Sodium 145 mmol/L (137-145) 07/07/19 01:59 Potassium 3.5 mmol/L (3.6-5.0) L 07/07/19 01:59 Chloride 104.9 mmol/L (98-107) 07/07/19 01:59 Carbon Dioxide 27 mmol/L (22-30) 07/07/19 01:59 Anion Gap 17 mmol/L 07/07/19 01:59 BUN 16 mg/dL (7-17) 07/07/19 01:59 Creatinine 1.0 mg/dL (0.7-1.2) 07/07/19 01:59 Estimated GFR > 60 ml/min 07/07/19 01:59 BUN/Creatinine Ratio 16 % 07/07/19 01:59 Glucose 103 mg/dL (65-100) H 07/07/19 01:59 POC Glucose 116 (70-105) H 07/10/19 16:05 Calcium 8.6 mg/dL (8.4-10.2) 07/07/19 01:59 Total Creatine Kinase 51 units/L (30-135) 07/07/19 11:46 CK-MB (CK-2) 1.6 ng/mL (0.0-4.0) 07/07/19 11:46 CK-MB (CK-2) Rel Index 3.1 (0-4) 07/07/19 11:46 Troponin T 0.412 ng/mL (0.00-0.029) H* 07/07/19 11:46 Triglycerides 56 mg/dL (2-149) 07/07/19 01:59 Cholesterol 111 mg/dL (50-199) 07/07/19 01:59 LDL Cholesterol Direct 55 mg/dL (50-130) 07/07/19 01:59 HDL Cholesterol 52 mg/dL (40-59) 07/07/19 01:59 Cholesterol/HDL Ratio 2.13 % 07/07/19 01:59 Active Medications - Current Medications Current Medications: Generic Name Dose Route Start Last Admin Trade Name Freq PRN Reason Stop Dose Admin Acetaminophen 650 mg 07/07/19 16:36 07/14/19 09:55 Tylenol PO 650 mg Q4H PRN Administration Pain MILD(1-3)/Fever >100.5/O[place]ES Atorvastatin Calcium 80 mg 07/07/19 22:00 07/14/19 21:20 Lipitor PO 80 mg QHS MAHOGANY Administration Bisacodyl 10 mg 07/07/19 10:28 Dulcolax CA QDAY PRN Constipation Carvedilol 3.125 mg 07/15/19 10:30 07/15/19 10:47 Coreg PO 3.125 mg BID MAHOGANY Administration Docusate Sodium 100 mg 07/07/19 11:00 07/15/19 10:45 Colace PO 100 mg BID MAHOGANY Administration Famotidine 10 mg 07/11/19 10:00 07/15/19 10:45 Pepcid PO 10 mg BID MAHOGANY Administration Furosemide 40 mg 07/08/19 10:00 07/15/19 10:46 Lasix PO 40 mg QDAY MAHOGANY Administration Hydralazine HCl 5 mg 07/08/19 05:50 07/14/19 01:13 Apresoline IV 5 mg Q6H PRN Administration Hypertension Levetiracetam 750 mg 07/09/19 22:00 07/15/19 10:45 Keppra PO 750 mg BID MAHOGANY Administration Lisinopril 20 mg 07/08/19 10:00 07/15/19 10:45 Zestril PO 20 mg QDAY MAHOGANY Administration Lorazepam 0.5 mg 07/15/19 01:23 Ativan PO Q4H PRN Agitation Magnesium Hydroxide 30 ml 07/07/19 10:28 Milk Of Magnesia PO Q4H PRN Constipation Melatonin 5 mg 07/15/19 01:24 07/15/19 01:50 Melatonin PO 5 mg QHS MAHOGANY Administration Metoclopramide HCl 10 mg 07/07/19 10:28 Reglan PO Q6H PRN Nausea And Vomiting Ondansetron HCl 4 mg 07/07/19 10:28 Zofran IV Q8H PRN Nausea And Vomiting Promethazine HCl 25 mg 07/07/19 10:28 Phenergan CA Q6H PRN Nausea And Vomiting Sodium Chloride 10 ml 07/07/19 10:28 07/10/19 22:46 Sodium Chloride Flush Syringe 10 Ml IV 10 ml PRN PRN Administration LINE FLUSH Spironolactone 25 mg 07/08/19 10:00 07/15/19 10:46 Aldactone PO 25 mg QDAY MAHOGANY Administration Warfarin Sodium 5 mg 07/13/19 18:41 07/15/19 17:13 Coumadin PO 5 mg DAILY@1700 MAHOGANY Administration Nutrition/Malnutrition Assess - Dietary Evaluation Nutrition/Malnutrition Findings: Nutrition Notes Start: 07/07/19 11:18 Freq: Status: Active Protocol: Document 07/08/19 10:43 PS (Rec: 07/08/19 11:07 PS [id number]) Co-Sign 07/08/19 10:43 LM Nutrition Notes Need for Assessment generated from: MD Order,Education Initial or Follow up Brief Note Current Diagnosis Diabetes,Hypertension,Heart Failure,Stroke Other Pertinent Diagnosis DVT, DE, pulmonary embolism, seizures Current Diet Mechanical Soft Pertinent Medications Coumadin Subjective/Other Information Pt. lethargic at time of visit , but at bedside. states pt. has been on coumadin before and she knows what it is. took Vitamin K and Medication handout. Nutrition Intervention Teaching Recipient Spouse Learning Readiness Good Teaching Methods Handout Response to Teaching Verbalize understanding Education Handouts Provided Vitamin K and Medication Barriers to Learning Cognitive/Verbal RD phone number provided Yes Patient aware of follow up options Yes Revisit per MD consult or patient Sign Off request:
[2019-07-15] MEDS ORDERED: DESYREL PO SCH (22:00)
[2019-07-16 07:25] LABS: INR 2.5 (0.87-1.13)
[2019-07-16] MEDS: KEPPRA PO SCH ×2 (09:22→21:55)
[2019-07-16] MEDS: ALDACTONE PO SCH (09:22)
[2019-07-16] MEDS: PEPCID PO SCH ×2 (09:22→21:55)
[2019-07-16] MEDS: ZESTRIL PO SCH (09:24)
[2019-07-16] MEDS: LASIX PO SCH (09:24)
[2019-07-16] MEDS: COREG PO SCH ×2 (09:25→21:56)
[2019-07-16] MEDS: COLACE PO SCH ×2 (09:26→21:55)
[2019-07-16] MEDS: SODIUM CHLORIDE FLUSH SYRINGE 10 ML IV PRN (09:26)
--- NOTE | 2019-07-16 10:48 | Progress Note ---
Assessment and Plan Seizures with post-ictal lethargy Acute stroke Hx of Laminated LV thrombus anticoagulation changed to warfarin this admission. Target INR is 1.8-2.5 due to acute CVA, INR today tehraputic at 2.5 . Nonischemic cardiomyopathy, EF 20% Presence of AICD, subcutaneous Obesity Continue medical therapy for nonischemic cardiomyopathy and anticoagulation for left ventricular thrombus. Continue coreg at 3.125 mg twice daily due to sinus bradycardia on telemetry. If INR is therapeutic patient can be discharged home from cardiac standpoint Subjective Date of service: 07/16/19 Principal diagnosis: Seizure, Stroke Interval history: No events overnight Objective Vital Signs Temp Pulse Pulse Resp BP BP Pulse Ox 07/16/19 09:25 61 133/82 07/16/19 09:24 56 L 133/82 07/16/19 09:22 56 L 133/82 07/16/19 07:58 56 L 18 98 07/16/19 07:37 98.3 F 18 133/82 07/16/19 04:16 98.5 F 59 L 16 147/84 98 07/15/19 23:56 98.0 F 58 L 16 122/68 93 07/15/19 23:00 52 L 109/55 07/15/19 20:18 97.4 F L 16 109/55 07/15/19 19:47 97.4 F L 58 L 16 87/47 97 07/15/19 18:02 98.0 F 54 L 19 133/64 07/15/19 17:16 50 L 99 07/15/19 17:00 51 L 07/15/19 12:29 59 L 96 07/15/19 12:00 98.1 F 48 L 19 142/90 07/15/19 10:49 66 179/105 100 - Physical Examination Narrative exam: General appearance: no acute distress HEENT: Normocephalic Neck: Carotids 2+ Cardiac: S1 and S2 heard no murmur noted Lungs: normal breath sounds Abd: soft Neuro: Grossly Intact Extremities: No edema noted General: No Apparent Distress HEENT: Positive: PERRL Neck: Positive: trachea midline Neuro: Positive: Grossly Intact Abdomen: Positive: Soft Skin: Positive: Clear Extremities: Absent: edema - Labs and Meds Coagulation 07/16/19 Range/Units 06:35 PT 26.5 H (12.2-14.9) Sec. INR 2.50 H (0.87-1.13)
--- NOTE | 2019-07-16 11:52 | Consultation ---
History of Present Illness - Reason for Consult Consult date: 07/16/19 Reason for consult: Mental Health evaluation - Chief Complaint Chief complaint: "I an not sure why I'm here" - History of Present Psychiatric Illness I an not sure why I'm here" - History of Present Psychiatric Illness 44 y.o. Aa female who presented to the ER for unresponsiveness. It has now been confirmed patient has experienced an ischemic infarct in her left frontal lobe. Psychiatry was consulted to see the patient for behavioral disturbance. Today the patient was calm and cooperative during the assessment. She stated that she is having difficulty coming to terms with this being her second CVA and and not understanding why this is occurring to her. She was able to state her and name the current/past [place] Presidents. She acknowledged a hx of seizures and stated that she had a stroke in the past. Patient is not in restraints today. in restraints. She denies a mental health dx. She denies SI/HI's and AVH's. She denies a poor appetite, but acknowledged that she slept better than before. She denies recreational drug use and alcohol consumption (etoh). Medications and Allergies Allergies Allergy/AdvReac Type Severity Reaction Status Date / Time No Known Allergies Allergy Verified 12/01/18 12:19 Home Medications Medication Instructions Recorded Confirmed Last Taken Type Aspirin EC [Halfprin EC] 81 mg PO QDAY #30 tablet. 08/26/14 12/02/18 Unknown Rx Rivaroxaban [Xarelto] 20 mg PO DAILY 11/19/14 12/02/18 Unknown History Acetaminophen [Acetaminophen TAB] 650 mg PO Q4H PRN #15 tablet 12/04/18 Unknown Rx Carvedilol [Coreg] 6.25 mg PO BID #30 tablet 12/04/18 Unknown Rx Furosemide [Lasix TAB] 40 mg PO QDAY #30 tablet 12/04/18 Unknown Rx Lisinopril [Zestril TAB] 20 mg PO QDAY #30 tablet 12/04/18 Unknown Rx Spironolactone [Aldactone] 25 mg PO QDAY #30 tablet 12/04/18 Unknown Rx Active Meds: Active Medications Acetaminophen (Tylenol) 650 mg PO Q4H PRN PRN Reason: Pain MILD(1-3)/Fever >100.5/[place] Last Admin: 07/14/19 09:55 Dose: 650 mg Documented by: Atorvastatin Calcium (Lipitor) 80 mg PO QHS [facility] Last Admin: 07/14/19 21:20 Dose: 80 mg Documented by: Bisacodyl (Dulcolax) 10 mg MS QDAY PRN PRN Reason: Constipation Carvedilol (Coreg) 3.125 mg PO BID [facility] Last Admin: 07/15/19 10:47 Dose: 3.125 mg Documented by: Docusate Sodium (Colace) 100 mg PO BID [facility] Last Admin: 07/15/19 10:45 Dose: 100 mg Documented by: Famotidine (Pepcid) 10 mg PO BID [facility] Last Admin: 07/15/19 10:45 Dose: 10 mg Documented by: Furosemide (Lasix) 40 mg PO QDAY [facility] Last Admin: 07/15/19 10:46 Dose: 40 mg Documented by: Hydralazine HCl (Apresoline) 5 mg IV Q6H PRN PRN Reason: Hypertension Last Admin: 07/14/19 01:13 Dose: 5 mg Documented by: Levetiracetam (Keppra) 750 mg PO BID [facility] Last Admin: 07/15/19 10:45 Dose: 750 mg Documented by: Lisinopril (Zestril) 20 mg PO QDAY [facility] Last Admin: 07/15/19 10:45 Dose: 20 mg Documented by: Lorazepam (Ativan) 0.5 mg PO Q4H PRN PRN Reason: Agitation Magnesium Hydroxide (Milk Of Magnesia) 30 ml PO Q4H PRN PRN Reason: Constipation Melatonin (Melatonin) 5 mg PO QHS [facility] Last Admin: 07/15/19 01:50 Dose: 5 mg Documented by: Metoclopramide HCl (Reglan) 10 mg PO Q6H PRN PRN Reason: Nausea And Vomiting Ondansetron HCl (Zofran) 4 mg IV Q8H PRN PRN Reason: Nausea And Vomiting Promethazine HCl (Phenergan) 25 mg MS Q6H PRN PRN Reason: Nausea And Vomiting Sodium Chloride (Sodium Chloride Flush Syringe 10 Ml) 10 ml IV PRN PRN PRN Reason: LINE FLUSH Last Admin: 07/10/19 22:46 Dose: 10 ml Documented by: Spironolactone (Aldactone) 25 mg PO QDAY [facility] Last Admin: 07/15/19 10:46 Dose: 25 mg Documented by: Trazodone HCl (Desyrel) 25 mg PO QHS [facility] Warfarin Sodium (Coumadin) 5 mg PO DAILY@1700 MAHOGANY Last Admin: 07/14/19 17:35 Dose: 5 mg Documented by: Past psychiatric history - Past Medical History Past Medical History: hypertension, seizures, stroke Past Surgical History: Other (AICD placement) - past Psychiatric treatment and history psychiatric treatment history: Denies a psy hx and fam psy hx. - Social History Social history: lives with family Mental Status Exam - Vital signs Last Vital Signs Temp 98.1 F 07/15/19 12:00 Pulse 58 L 07/15/19 12:00 Resp 19 07/15/19 12:00 BP 142/90 07/15/19 12:00 Pulse Ox 93 07/15/19 04:00 - Exam Narrative exam: MSE: Appearance: calm, cooperative Behavior: regular eye contact Speech: regular rate and loud tone Mood: "okay" Affect: congruent to mood Thought Process: circumstantial Thought Content: denies SI/HI's with AVH's Motor Activity: ambulatory Cognition: A/Ox 3 Insight: fair Judgment: fair + Results Result Diagrams: 07/07/19 01:59 07/07/19 01:59 Abnormal lab results 07/15/19 Range/Units 06:06 PT 24.3 H (12.2-14.9) Sec. INR 2.23 H (0.87-1.13) All other labs normal. Assessment and Plan Assessment and plan: Impression: Possibly residual from recent infarct. Today the patient was calm and cooperative during the assessment. The patient isn't in restraints. Neuro is following the patient. Recommendation/Plan: Continue Melatonin 5 mg PO HS for sleep. Dispo: The patient is pending rehab placement per Case Mgmt. Will staff with Dr Ian Briseno. Medications and Allergies Allergies Allergy/AdvReac Type Severity Reaction Status Date / Time No Known Allergies Allergy Verified 12/01/18 12:19 Home Medications Medication Instructions Recorded Confirmed Last Taken Type Aspirin EC [Halfprin EC] 81 mg PO QDAY #30 tablet. 08/26/14 12/02/18 Unknown Rx Rivaroxaban [Xarelto] 20 mg PO DAILY 11/19/14 12/02/18 Unknown History Acetaminophen [Acetaminophen TAB] 650 mg PO Q4H PRN #15 tablet 12/04/18 Unknown Rx Carvedilol [Coreg] 6.25 mg PO BID #30 tablet 12/04/18 Unknown Rx Furosemide [Lasix TAB] 40 mg PO QDAY #30 tablet 12/04/18 Unknown Rx Lisinopril [Zestril TAB] 20 mg PO QDAY #30 tablet 12/04/18 Unknown Rx Spironolactone [Aldactone] 25 mg PO QDAY #30 tablet 12/04/18 Unknown Rx Active Meds: Active Medications Acetaminophen (Tylenol) 650 mg PO Q4H PRN PRN Reason: Pain MILD(1-3)/Fever >100.5/[place] Last Admin: 07/14/19 09:55 Dose: 650 mg Documented by: Atorvastatin Calcium (Lipitor) 80 mg PO QHS [facility] Last Admin: 07/15/19 23:12 Dose: 80 mg Documented by: Bisacodyl (Dulcolax) 10 mg MS QDAY PRN PRN Reason: Constipation Carvedilol (Coreg) 3.125 mg PO BID [facility] Last Admin: 07/16/19 09:25 Dose: 3.125 mg Documented by: Docusate Sodium (Colace) 100 mg PO BID [facility] Last Admin: 07/16/19 09:26 Dose: 100 mg Documented by: Famotidine (Pepcid) 10 mg PO BID [facility] Last Admin: 07/16/19 09:22 Dose: 10 mg Documented by: Furosemide (Lasix) 40 mg PO QDAY [facility] Last Admin: 07/16/19 09:24 Dose: 40 mg Documented by: Hydralazine HCl (Apresoline) 5 mg IV Q6H PRN PRN Reason: Hypertension Last Admin: 07/14/19 01:13 Dose: 5 mg Documented by: Levetiracetam (Keppra) 750 mg PO BID [facility] Last Admin: 07/16/19 09:22 Dose: 750 mg Documented by: Lisinopril (Zestril) 20 mg PO QDAY [facility] Last Admin: 07/16/19 09:24 Dose: 20 mg Documented by: Lorazepam (Ativan) 0.5 mg PO Q4H PRN PRN Reason: Agitation Last Admin: 07/16/19 00:46 Dose: 0.5 mg Documented by: Magnesium Hydroxide (Milk Of Magnesia) 30 ml PO Q4H PRN PRN Reason: Constipation Melatonin (Melatonin) 5 mg PO QHS [facility] Last Admin: 07/15/19 23:12 Dose: 5 mg Documented by: Metoclopramide HCl (Reglan) 10 mg PO Q6H PRN PRN Reason: Nausea And Vomiting Ondansetron HCl (Zofran) 4 mg IV Q8H PRN PRN Reason: Nausea And Vomiting Promethazine HCl (Phenergan) 25 mg MS Q6H PRN PRN Reason: Nausea And Vomiting Sodium Chloride (Sodium Chloride Flush Syringe 10 Ml) 10 ml IV PRN PRN PRN Reason: LINE FLUSH Last Admin: 07/16/19 09:26 Dose: 10 ml Documented by: Spironolactone (Aldactone) 25 mg PO QDAY [facility] Last Admin: 07/16/19 09:22 Dose: 25 mg Documented by: Warfarin Sodium (Coumadin) 4 mg PO DAILY@1700 [facility] Mental Status Exam - Vital signs Last Vital Signs Temp 98.3 F 07/16/19 07:37 Pulse 61 07/16/19 09:25 Resp 18 07/16/19 07:58 BP 133/82 07/16/19 09:25 Pulse Ox 98 07/16/19 07:58 Results Result Diagrams: 07/16/19 11:02 07/07/19 01:59 Abnormal lab results 07/16/19 Range/Units 06:35 PT 26.5 H (12.2-14.9) Sec. INR 2.50 H (0.87-1.13) All other labs normal.
--- NOTE | 2019-07-16 13:26 | Progress Note ---
Assessment and Plan --Subacute ischemic infarct suspected in the left frontal lobe[CT head 07/13/19]: Possible petechial hemorrhage..Patient clinically stable[INR goal reduced to 1.8-2.0 CT head showed no hemorrhagic transformation --Laminated LV thrombus, On anticoagulation with the eliquis, bridge with Lovenox Target INR 1.8-2.0 --Acute seizure with postictal lethargy on Keppra IV, continue Ativan and IBS needed CT head without any acute finding Cannot obtain MRI as patient has ICD in place Consulted neurologic, will follow recommendation --Chronic systolic CHF (congestive heart failure) Ef 15-20%: Has history of nonischemic cardiomyopathy with EF 15-20% Cardiology consulted, will continue her cardiac meds --Elevated troponin, chronically elevated Cardiologic following --Diabetes Mellitus: ADA diet, insulin, accu check --HTN (hypertension): Monitor bp q shift, continue medical management --Obstructive sleep apnea, CPAP at bedtime --Old CVA, continue anticoagulation, statin, neuro check --Morbid obesity, dietary recommendations as appropriate when clinically more stable --DVT prophylaxis, eliquis Monitor closely and adjust management as needed Follow neurology evaluation and recommendations Plan of care is reviewed with the patient, her nurse and case management Subjective Date of service: 07/16/19 Principal diagnosis: Seizure, Stroke Interval history: No new complaints. Still has dysathria. Weak on the left lower extremities. Objective - Exam Narrative Exam: Constitutional: Well-nourished well-developed. In no distress Head: Normocephalic atraumatic Eyes: Pupils are equal round and reactive to light Nose: No enlarged turbinates, no septal deviation. Mouth: Moist mucous membranes. Neck: Supple no thyromegaly. No bruit. No JVD Heart: Regular rate and rhythm, S1-S2 normal. No rubs murmurs or gallop Lungs: Clear to auscultation bilaterally. no rales or rhonchi Abdomen: Soft, nontender. Bowel sound are present. Extremities: No edema, no cyanosis, no clubbing. Neuro: Alert oriented Oriented x3. Dysathria, weak in the left U and L extremities Skin: No rashes or hyperpigmented spots Musculoskeletal system: No joint pain or swelling Hematological: No petechia or subcutanous hemorrhages. Immunological: No multiple septic spots on the skin Lymphatic: No generalized lymphadenopathy Psychiatry: Euthymic. Calm. - Constitutional Vitals: Vital Signs - 12hr 07/16/19 07/16/19 07/16/19 04:16 07:15 07:37 Temperature 98.5 F 98.3 F Pulse Rate 59 L 55 L Pulse Rate [ Apical] Respiratory 16 18 Rate Blood Pressure 147/84 133/82 O2 Sat by Pulse 98 Oximetry 07/16/19 07/16/19 07/16/19 07:58 09:22 09:24 Temperature Pulse Rate 56 L 56 L Pulse Rate [ 56 L Apical] Respiratory 18 Rate Blood Pressure 133/82 133/82 O2 Sat by Pulse 98 Oximetry 07/16/19 09:25 Temperature Pulse Rate 61 Pulse Rate [ Apical] Respiratory Rate Blood Pressure 133/82 O2 Sat by Pulse Oximetry - Labs CBC & Chem 7: 07/16/19 11:02 07/07/19 01:59 Labs: Abnormal lab results 07/16/19 Range/Units 06:35 PT 26.5 H (12.2-14.9) Sec. INR 2.50 H (0.87-1.13)
[2019-07-16] MEDS ORDERED: COUMADIN PO SCH (17:00)
[2019-07-16] MEDS: TYLENOL PO PRN ×2 (18:46→21:56)
[2019-07-16] MEDS: MELATONIN PO SCH (21:55)
[2019-07-17 06:40] LABS: INR 2.64 (0.87-1.13)
[2019-07-17] MEDS: ALDACTONE PO SCH (09:23)
[2019-07-17] MEDS: COREG PO SCH ×2 (09:23→21:20)
[2019-07-17] MEDS: COLACE PO SCH ×2 (09:23→21:19)
[2019-07-17] MEDS: PEPCID PO SCH ×2 (09:24→21:19)
[2019-07-17] MEDS: ZESTRIL PO SCH (09:24)
[2019-07-17] MEDS: LASIX PO SCH (09:24)
[2019-07-17] MEDS: KEPPRA PO SCH ×2 (09:24→21:20)
--- NOTE | 2019-07-17 11:41 | Progress Note ---
Assessment and Plan Seizures with post-ictal lethargy Acute stroke Hx of Laminated LV thrombus anticoagulation changed to warfarin this admission. Target INR is 1.8-2.5 due to acute CVA, INR today therapeutic at 2.6 . Nonischemic cardiomyopathy, EF 20% Presence of AICD, subcutaneous Obesity Continue medical therapy for nonischemic cardiomyopathy and anticoagulation for left ventricular thrombus. tolerating low dose coreg at 3.125 mg twice daily Patient can be discharged home from cardiac standpoint Subjective Date of service: 07/17/19 Principal diagnosis: Seizure, Stroke Interval history: No events overnight Objective Vital Signs Temp Pulse Resp Resp BP Pulse Ox 07/17/19 04:24 55 L 20 07/17/19 04:10 98.0 F 49 L 18 159/93 96 07/16/19 23:26 98.0 F 55 L 20 146/83 93 07/16/19 22:00 55 L 07/16/19 21:56 48 L 18 153/95 07/16/19 19:59 98.0 F 48 L 18 153/95 93 07/16/19 17:20 98.2 F 18 138/86 85 - Physical Examination Narrative exam: General appearance: no acute distress HEENT: Normocephalic Neck: Carotids 2+ Cardiac: S1 and S2 heard no murmur noted Lungs: normal breath sounds Abd: soft Neuro: Grossly Intact Extremities: No edema noted General: No Apparent Distress HEENT: Positive: PERRL Neck: Positive: trachea midline Neuro: Positive: Grossly Intact Abdomen: Positive: Soft Skin: Positive: Clear Extremities: Absent: edema - Labs and Meds Coagulation 07/17/19 Range/Units 05:21 PT 27.7 H (12.2-14.9) Sec. INR 2.64 H (0.87-1.13)
--- NOTE | 2019-07-17 12:28 | Consultation ---
History of Present Illness - Reason for Consult Consult date: 07/17/19 Reason for consult: Mental Health evaluation - Chief Complaint Chief complaint: "I an not sure why I'm here" - History of Present Psychiatric Illness I an not sure why I'm here" - History of Present Psychiatric Illness 44 y.o. Aa female who presented to the ER for unresponsiveness. It has now been confirmed patient has experienced an ischemic infarct in her left frontal lobe. Psychiatry was consulted to see the patient for behavioral disturbance. Today the patient was calm and cooperative during the assessment. She stated that she is having difficulty coming to terms with this being her second CVA and and not understanding why this is occurring to her. She was able to state her and name the current/past [place] Presidents. Today patient is disorganized and hyperverbal. Staff reports that she has been this way all this morning. Reportedly last evening she had no changes. She acknowledged a hx of seizures and stated that she had a stroke in the past. Patient is not in restraints today. She denies a mental health dx. She denies SI/HI's and AVH's. She denies a poor appetite, but acknowledged that she slept better than before. She denies recreational drug use and alcohol consumption (etoh). Medications and Allergies Allergies Allergy/AdvReac Type Severity Reaction Status Date / Time No Known Allergies Allergy Verified 12/01/18 12:19 Home Medications Medication Instructions Recorded Confirmed Last Taken Type Aspirin EC [Halfprin EC] 81 mg PO QDAY #30 tablet. 08/26/14 12/02/18 Unknown Rx Rivaroxaban [Xarelto] 20 mg PO DAILY 11/19/14 12/02/18 Unknown History Acetaminophen [Acetaminophen TAB] 650 mg PO Q4H PRN #15 tablet 12/04/18 Unknown Rx Carvedilol [Coreg] 6.25 mg PO BID #30 tablet 12/04/18 Unknown Rx Furosemide [Lasix TAB] 40 mg PO QDAY #30 tablet 12/04/18 Unknown Rx Lisinopril [Zestril TAB] 20 mg PO QDAY #30 tablet 12/04/18 Unknown Rx Spironolactone [Aldactone] 25 mg PO QDAY #30 tablet 12/04/18 Unknown Rx Active Meds: Active Medications Acetaminophen (Tylenol) 650 mg PO Q4H PRN PRN Reason: Pain MILD(1-3)/Fever >100.5/[place] Last Admin: 07/14/19 09:55 Dose: 650 mg Documented by: Atorvastatin Calcium (Lipitor) 80 mg PO QHS COUNT INCLUDES THE [facility] Last Admin: 07/14/19 21:20 Dose: 80 mg Documented by: Bisacodyl (Dulcolax) 10 mg CO QDAY PRN PRN Reason: Constipation Carvedilol (Coreg) 3.125 mg PO BID COUNT INCLUDES THE [facility] Last Admin: 07/15/19 10:47 Dose: 3.125 mg Documented by: Docusate Sodium (Colace) 100 mg PO BID COUNT INCLUDES THE [facility] Last Admin: 07/15/19 10:45 Dose: 100 mg Documented by: Famotidine (Pepcid) 10 mg PO BID COUNT INCLUDES THE [facility] Last Admin: 07/15/19 10:45 Dose: 10 mg Documented by: Furosemide (Lasix) 40 mg PO QDAY COUNT INCLUDES THE [facility] Last Admin: 07/15/19 10:46 Dose: 40 mg Documented by: Hydralazine HCl (Apresoline) 5 mg IV Q6H PRN PRN Reason: Hypertension Last Admin: 07/14/19 01:13 Dose: 5 mg Documented by: Levetiracetam (Keppra) 750 mg PO BID COUNT INCLUDES THE [facility] Last Admin: 07/15/19 10:45 Dose: 750 mg Documented by: Lisinopril (Zestril) 20 mg PO QDAY COUNT INCLUDES THE [facility] Last Admin: 07/15/19 10:45 Dose: 20 mg Documented by: Lorazepam (Ativan) 0.5 mg PO Q4H PRN PRN Reason: Agitation Magnesium Hydroxide (Milk Of Magnesia) 30 ml PO Q4H PRN PRN Reason: Constipation Melatonin (Melatonin) 5 mg PO QHS COUNT INCLUDES THE [facility] Last Admin: 07/15/19 01:50 Dose: 5 mg Documented by: Metoclopramide HCl (Reglan) 10 mg PO Q6H PRN PRN Reason: Nausea And Vomiting Ondansetron HCl (Zofran) 4 mg IV Q8H PRN PRN Reason: Nausea And Vomiting Promethazine HCl (Phenergan) 25 mg CO Q6H PRN PRN Reason: Nausea And Vomiting Sodium Chloride (Sodium Chloride Flush Syringe 10 Ml) 10 ml IV PRN PRN PRN Reason: LINE FLUSH Last Admin: 07/10/19 22:46 Dose: 10 ml Documented by: Spironolactone (Aldactone) 25 mg PO QDAY COUNT INCLUDES THE [facility] Last Admin: 07/15/19 10:46 Dose: 25 mg Documented by: Trazodone HCl (Desyrel) 25 mg PO QHS COUNT INCLUDES THE [facility] Warfarin Sodium (Coumadin) 5 mg PO DAILY@1700 COUNT INCLUDES THE [facility] Last Admin: 07/14/19 17:35 Dose: 5 mg Documented by: Past psychiatric history - Past Medical History Past Medical History: hypertension, seizures, stroke Past Surgical History: Other (AICD placement) - past Psychiatric treatment and history psychiatric treatment history: Denies a psy hx and fam psy hx. - Social History Social history: lives with family Mental Status Exam - Vital signs Last Vital Signs Temp 98.1 F 07/15/19 12:00 Pulse 58 L 07/15/19 12:00 Resp 19 07/15/19 12:00 BP 142/90 07/15/19 12:00 Pulse Ox 93 07/15/19 04:00 - Exam Narrative exam: MSE: Appearance: calm, cooperative Behavior: regular eye contact Speech: regular rate and loud tone Mood: "okay" Affect: congruent to mood Thought Process: circumstantial and tangential Thought Content: denies SI/HI's with AVH's Motor Activity: ambulatory Cognition: A/Ox 3 Insight: fair Judgment: fair + Results Result Diagrams: 07/07/19 01:59 07/07/19 01:59 Abnormal lab results 07/15/19 Range/Units 06:06 PT 24.3 H (12.2-14.9) Sec. INR 2.23 H (0.87-1.13) All other labs normal. Assessment and Plan Assessment and plan: Impression: Patient is somewhat tangential today. Staff reports that she has been this way and hyperverbal all morning. This is a change from yesterday. We will continue to follow may still be related to frontal lobe damage. Neuro is following the patient. Recommendation/Plan: Continue Melatonin 5 mg PO HS for sleep. Dispo: The patient is pending rehab placement per Case Mgmt. Will staff with Dr Ian Briseno. Medications and Allergies Allergies Allergy/AdvReac Type Severity Reaction Status Date / Time No Known Allergies Allergy Verified 12/01/18 12:19 Home Medications Medication Instructions Recorded Confirmed Last Taken Type Aspirin EC [Halfprin EC] 81 mg PO QDAY #30 tablet. 08/26/14 12/02/18 Unknown Rx Rivaroxaban [Xarelto] 20 mg PO DAILY 11/19/14 12/02/18 Unknown History Acetaminophen [Acetaminophen TAB] 650 mg PO Q4H PRN #15 tablet 12/04/18 Unknown Rx Carvedilol [Coreg] 6.25 mg PO BID #30 tablet 12/04/18 Unknown Rx Furosemide [Lasix TAB] 40 mg PO QDAY #30 tablet 12/04/18 Unknown Rx Lisinopril [Zestril TAB] 20 mg PO QDAY #30 tablet 12/04/18 Unknown Rx Spironolactone [Aldactone] 25 mg PO QDAY #30 tablet 12/04/18 Unknown Rx Active Meds: Active Medications Acetaminophen (Tylenol) 650 mg PO Q4H PRN PRN Reason: Pain MILD(1-3)/Fever >100.5/[place] Last Admin: 07/16/19 21:56 Dose: 650 mg Documented by: Atorvastatin Calcium (Lipitor) 80 mg PO QHS COUNT INCLUDES THE [facility] Last Admin: 07/16/19 21:55 Dose: 80 mg Documented by: Bisacodyl (Dulcolax) 10 mg CO QDAY PRN PRN Reason: Constipation Carvedilol (Coreg) 3.125 mg PO BID COUNT INCLUDES THE [facility] Last Admin: 07/17/19 09:23 Dose: 3.125 mg Documented by: Docusate Sodium (Colace) 100 mg PO BID COUNT INCLUDES THE [facility] Last Admin: 07/17/19 09:23 Dose: 100 mg Documented by: Famotidine (Pepcid) 10 mg PO BID COUNT INCLUDES THE [facility] Last Admin: 07/17/19 09:24 Dose: 10 mg Documented by: Furosemide (Lasix) 40 mg PO QDAY COUNT INCLUDES THE [facility] Last Admin: 07/17/19 09:24 Dose: 40 mg Documented by: Hydralazine HCl (Apresoline) 5 mg IV Q6H PRN PRN Reason: Hypertension Last Admin: 07/14/19 01:13 Dose: 5 mg Documented by: Levetiracetam (Keppra) 750 mg PO BID COUNT INCLUDES THE [facility] Last Admin: 07/17/19 09:24 Dose: 750 mg Documented by: Lisinopril (Zestril) 20 mg PO QDAY COUNT INCLUDES THE [facility] Last Admin: 07/17/19 09:24 Dose: 20 mg Documented by: Lorazepam (Ativan) 0.5 mg PO Q4H PRN PRN Reason: Agitation Last Admin: 07/16/19 00:46 Dose: 0.5 mg Documented by: Magnesium Hydroxide (Milk Of Magnesia) 30 ml PO Q4H PRN PRN Reason: Constipation Melatonin (Melatonin) 5 mg PO QHS COUNT INCLUDES THE [facility] Last Admin: 07/16/19 21:55 Dose: 5 mg Documented by: Metoclopramide HCl (Reglan) 10 mg PO Q6H PRN PRN Reason: Nausea And Vomiting Ondansetron HCl (Zofran) 4 mg IV Q8H PRN PRN Reason: Nausea And Vomiting Promethazine HCl (Phenergan) 25 mg CO Q6H PRN PRN Reason: Nausea And Vomiting Sodium Chloride (Sodium Chloride Flush Syringe 10 Ml) 10 ml IV PRN PRN PRN Reason: LINE FLUSH Last Admin: 07/16/19 09:26 Dose: 10 ml Documented by: Spironolactone (Aldactone) 25 mg PO QDAY COUNT INCLUDES THE [facility] Last Admin: 07/17/19 09:23 Dose: 25 mg Documented by: Warfarin Sodium (Coumadin) 3.5 mg PO DAILY@1700 COUNT INCLUDES THE [facility] Mental Status Exam - Vital signs Last Vital Signs Temp 98.0 F 07/17/19 04:10 Pulse 55 L 07/17/19 04:24 Resp 20 07/17/19 04:24 BP 159/93 07/17/19 04:10 Pulse Ox 96 07/17/19 04:10 Results Result Diagrams: 07/16/19 11:02 07/07/19 01:59 Abnormal lab results 07/17/19 Range/Units 05:21 PT 27.7 H (12.2-14.9) Sec. INR 2.64 H (0.87-1.13) All other labs normal.
--- NOTE | 2019-07-17 13:19 | Progress Note ---
Assessment and Plan -Subacute ischemic infarct suspected in the left frontal lobe[CT head 07/13/19]: Possible petechial hemorrhage..Patient clinically stable[INR goal reduced to 1.8-2.0 CT head showed no hemorrhagic transformation -Laminated LV thrombus, On anticoagulation with the eliquis, bridge with Lovenox Target INR 1.8-2.0 -Acute seizure with postictal lethargy on Keppra IV, continue Ativan and IBS needed CT head without any acute finding Cannot obtain MRI as patient has ICD in place Consulted neurologic, will follow recommendation -Chronic systolic CHF (congestive heart failure) Ef 15-20%: Has history of nonischemic cardiomyopathy with EF 15-20% Cardiology consulted, will continue her cardiac meds -Elevated troponin, chronically elevated Cardiologic following -Diabetes Mellitus: ADA diet, insulin, accu check -HTN (hypertension): Monitor bp q shift, continue medical management -Obstructive sleep apnea, CPAP at bedtime -Old CVA, continue anticoagulation, statin, neuro check -Morbid obesity, dietary recommendations as appropriate when clinically more stable -DVT prophylaxis, eliquis Monitor closely and adjust management as needed Follow neurology evaluation and recommendations Plan of care is reviewed with the patient, her nurse and case management Disposition: Awaiting SNF Placement Subjective Date of service: 07/17/19 Principal diagnosis: Seizure, Stroke Interval history: No new complaints. Still has dysathria. Weak on the left upper and lower extremities. Objective - Exam Narrative Exam: Constitutional: Well-nourished well-developed. In no distress Head: Normocephalic atraumatic Eyes: Pupils are equal round and reactive to light Nose: No enlarged turbinates, no septal deviation. Mouth: Moist mucous membranes. Neck: Supple no thyromegaly. No bruit. No JVD Heart: Regular rate and rhythm, S1-S2 normal. No rubs murmurs or gallop Lungs: Clear to auscultation bilaterally. no rales or rhonchi Abdomen: Soft, nontender. Bowel sound are present. Extremities: No edema, no cyanosis, no clubbing. Neuro: Alert oriented Oriented x3. Dysathria, weak in the left U and L extremities Skin: No rashes or hyperpigmented spots Musculoskeletal system: No joint pain or swelling Hematological: No petechia or subcutanous hemorrhages. Immunological: No multiple septic spots on the skin Lymphatic: No generalized lymphadenopathy Psychiatry: Euthymic. Calm. - Constitutional Vitals: Vital Signs - 12hr 07/17/19 07/17/19 04:10 04:24 Temperature 98.0 F Pulse Rate 49 L 55 L Respiratory 18 Rate Respiratory 20 Rate [LOCATION] Blood Pressure 159/93 O2 Sat by Pulse 96 Oximetry - Labs CBC & Chem 7: 07/16/19 11:02 07/07/19 01:59 Labs: Abnormal lab results 07/17/19 Range/Units 05:21 PT 27.7 H (12.2-14.9) Sec. INR 2.64 H (0.87-1.13)
[2019-07-17] MEDS: COUMADIN PO SCH (17:05)
[2019-07-17] MEDS: MELATONIN PO SCH (21:19)
[2019-07-17] MEDS: SODIUM CHLORIDE FLUSH SYRINGE 10 ML IV PRN (21:20)
[2019-07-18 08:20] LABS: INR 2.6 (0.87-1.13)
[2019-07-18] MEDS: KEPPRA PO SCH ×2 (10:54→21:08)
[2019-07-18] MEDS: PEPCID PO SCH ×2 (10:54→21:08)
[2019-07-18] MEDS: ALDACTONE PO SCH (10:55)
[2019-07-18] MEDS: ZESTRIL PO SCH (10:55)
[2019-07-18] MEDS: LASIX PO SCH (10:55)
[2019-07-18] MEDS: COREG PO SCH ×2 (10:55→21:09)
[2019-07-18] MEDS: COLACE PO SCH ×2 (10:57→21:08)
--- NOTE | 2019-07-18 11:12 | Discharge Summary ---
Providers - Providers Date of Admission: 07/07/19 03:56 Date of discharge: 07/18/19 Attending physician: LEAH MULLER 07/07/19 06:08 Consult to Physician [CONS] Stat Comment: Dr. Duran spoke with Dr. 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 Consult to Dietitian/Nutrition [CONS] Routine Physician Instructions: Reason For Exam: Reason for Consult: Nutrition Recommendations Reason for Consult: Diet education Occupational Therapy Evaluate and Treat [CONS] Routine Comment: Reason For Exam: Neuro deficits Physical Therapy Evaluation and Treat [CONS] Routine Comment: Reason For Exam: Neuro deficits 07/13/19 16:16 Consult to Physician [CONS] Routine Comment: Consulting Provider: REJI SALGUERO Physician Instructions: Reason For Exam: Acute CVA 07/15/19 01:21 Consult to Mental Health [CONS] Routine Reason For Exam: behavioral disturbance Place consult to:: [facility] Notified:: [phone] Phone number called:: [phone] 07/15/19 01:23 Consult to Mental Health [CONS] Routine Reason For Exam: behavioral disturbance Place consult to:: [facility] Notified:: [phone] [facility] Reason for admission: 07/17/19 Condition: Stable Pertinent studies: CT head CXR Procedures: none Hospital course: This is a 44-year old woman with a long standing history of nonischemic cardiomyopathy and has a subcutaneous cardiac defibrillator, on oral anticoagulation with Eliquis for laminated LV thrombus was brought in with altered mental status with seizure like activity with post ictal lethargy based on the witnessed episodes. She noted altered on admission. Head CT scan reports showed subacute infarction. MRI could not be done as pt has AICD in place. Prior ECHO had shown EF of 15-20% with systolic dysfunction. Chest x-ray shows cardiomegaly but no interstitial edema. There were no reports of chest pain, unusual shortness of breath or palpitations. On review of troponin measurements done November 2018, it appears she has chronic elevated troponin. She is being admitted for further evaluation and Mx. Cardiology and neurology consults were obtain on admission. Pt was continued with anticoagulation with coumadine as her ability to obtain Eliquis was inconsistent. INR improved to 2. PT continued and antiseizure medication. patient was discharfged home with home PT/OT and to f/u with PCP in 3-5 days Disposition: [id number] HOME UNDER HOME [facility] Time spent for discharge: 35 mins - Discharge Diagnoses (1) Intracardiac thrombus Status: Acute (2) Acute CVA (cerebrovascular accident) Status: Acute (3) Acute on chronic systolic CHF (congestive heart failure) Status: Acute Core Measure Documentation - Palliative Care Palliative Care/ Comfort Measures: Not Applicable - Core Measures Any of the following diagnoses?: stroke - Stroke Discharge Requirements Statin for LDL = or >70 mg/dl on DC: Yes Anticoag for atrial fib/atrial flutter: Not Applicable Antithrombotic for ischemic stroke: Yes Exam - Physical Exam Narrative exam: Constitutional: Well-nourished well-developed. In no distress Head: Normocephalic atraumatic Eyes: Pupils are equal round and reactive to light Nose: No enlarged turbinates, no septal deviation. Mouth: Moist mucous membranes. Neck: Supple no thyromegaly. No bruit. No JVD Heart: Regular rate and rhythm, S1-S2 normal. No rubs murmurs or gallop Lungs: Clear to auscultation bilaterally. no rales or rhonchi Abdomen: Soft, nontender. Bowel sound are present. Extremities: No edema, no cyanosis, no clubbing. Neuro: Alert oriented Oriented x3. Dysathria, weak in the left U and L extremities Skin: No rashes or hyperpigmented spots Musculoskeletal system: No joint pain or swelling Hematological: No petechia or subcutanous hemorrhages. Immunological: No multiple septic spots on the skin Lymphatic: No generalized lymphadenopathy Psychiatry: Euthymic. Calm. - Constitutional Vitals: Temp Pulse Resp BP Pulse Ox 97.5 F L 66 19 133/66 98 07/18/19 04:57 07/18/19 04:57 07/18/19 04:57 07/18/19 04:57 07/18/19 04:57 Plan Weight Bearing Status: Weight Bear as Tolerated Diet: diabetic Follow up with: DESTINY RODGERS MD [Primary Care Provider] - 3-5 Days Forms: Warfarin Discharge Instruction Prescriptions: Spironolactone [Aldactone] 25 mg PO QDAY #30 tablet Docusate Sodium [Colace CAP] 100 mg PO BID #60 capsule Carvedilol [Coreg] 3.125 mg PO BID #60 tablet Carvedilol [Coreg] 6.25 mg PO BID #30 tablet Warfarin [Coumadin] 3.5 mg PO DAILY@1700 #30 tablet Aspirin EC [Halfprin EC] 81 mg PO QDAY #30 tablet. levETIRAcetam [Keppra TAB] 750 mg PO BID #60 tablet Furosemide [Lasix TAB] 40 mg PO QDAY #30 tablet AtorvaSTATin [Lipitor] 80 mg PO QHS #30 tablet Melatonin [Melatonin 5MG TAB] 5 mg PO QHS #30 tablet Lisinopril [Zestril TAB] 20 mg PO QDAY #30 tablet
--- NOTE | 2019-07-18 12:16 | Progress Note ---
Assessment and Plan Seizures with post-ictal lethargy Acute stroke Hx of Laminated LV thrombus anticoagulation changed to warfarin this admission. Target INR is 1.8-2.5 due to acute CVA. Nonischemic cardiomyopathy, EF 20% Presence of AICD, subcutaneous Obesity Continue medical therapy for nonischemic cardiomyopathy and anticoagulation for left ventricular thrombus. Subjective Date of service: 07/18/19 Principal diagnosis: Seizure, Stroke Interval history: Patient has no cardiac complaints. INR at 2.6 today. Sinus rhythm on telemetry. Objective Vital Signs Temp Pulse Resp Resp BP BP Pulse Ox 07/18/19 11:15 98.2 F 65 18 97/69 98 07/18/19 11:09 98.0 F 66 18 137/93 89 07/18/19 07:46 20 152/91 07/18/19 04:57 97.5 F L 66 19 133/66 98 07/18/19 04:01 55 L 07/17/19 23:52 98.2 F 55 L 18 140/84 97 07/17/19 22:02 20 07/17/19 22:00 20 07/17/19 21:20 62 124/78 07/17/19 20:09 97.5 F L 62 18 124/78 92 07/17/19 17:24 98.1 F 62 18 159/105 96 07/17/19 12:52 98.0 F 18 180/98 - Physical Examination General: No Apparent Distress HEENT: Positive: PERRL Neck: Positive: trachea midline Cardiac: Positive: Reg Rate and Rhythm Lungs: Positive: Decreased Breath Sounds Neuro: Positive: Grossly Intact Abdomen: Positive: Soft Extremities: Absent: edema - Labs and Meds Coagulation 07/18/19 Range/Units 07:52 PT 27.4 H (12.2-14.9) Sec. INR 2.60 H (0.87-1.13)
--- NOTE | 2019-07-18 13:31 | Progress Note ---
Subjective - Reason for Consult Consult date: 07/18/19 Reason for consult: Psychiatry Follow-up - Chief Complaint Chief complaint: "Hello" 44 y.o. Aa female who presented to the ER for unresponsiveness. It has now been confirmed patient has experienced an ischemic infarct in her left frontal lobe. Psychiatry was consulted to see the patient for behavioral disturbance. Today the patient was calm and cooperative during the assessment. The patient was more engaging with a fair insight during the interview. She did not present with manic type symptoms. Per the notes, no behavioral disturbances by the patient overnight. The patient denies SI/HI's and AVH's. She stated that she slept "okay" last night. Mental Status Exam - Vital signs Last Vital Signs Temp 98.2 F 07/18/19 11:15 Pulse 65 07/18/19 11:15 Resp 18 07/18/19 11:15 BP 97/69 07/18/19 11:15 Pulse Ox 98 07/18/19 11:15 - Exam Narrative exam: MSE: Appearance: calm, cooperative Behavior: regular eye contact Speech: regular rate and loud tone Mood: "okay" Affect: congruent to mood Thought Process: circumstantial Thought Content: denies SI/HI's with AVH's Motor Activity: ambulatory Cognition: A/Ox 3 Insight: fair Judgment: appropriate + Assessment and Plan Impression: Possibly residual from recent infarct. Today the patient was calm and cooperative during the assessment. Neuro is following the patient. Recommendation/Plan: Continue Melatonin 5 mg PO HS for sleep. Psy sign off. Dispo: The patient is pending rehab placement per Case Mgmt. Will staff with Dr Ian Briseno.
[2019-07-18 16:33] VITALS: BP 152/96
[2019-07-18] MEDS: COUMADIN PO SCH (18:02)
[2019-07-18] MEDS: TYLENOL PO PRN (21:10)
[2019-07-18] MEDS: MELATONIN PO SCH (21:10)
== END 2019-07-18 22:30 | disposition home health service (06) | DRG 64 ==
LOC: ED 01:27 → 4A 03:56
PROVIDERS: ADMIT Internal Medicine; ATTEND Family Medicine
DX: I63.9 Cerebral infarction, unspecified (principal); I50.23 Acute on chronic systolic (congestive) heart failure; R29.723 NIHSS score 23; I24.9 Acute ischemic heart disease, unspecified; G47.33 Obstructive sleep apnea (adult) (pediatric); E11.9 Type 2 diabetes mellitus without complications; I11.0 Hypertensive heart disease with heart failure; I24.0 Acute coronary thrombosis not resulting in myocardial infarction; D68.9 Coagulation defect, unspecified; I42.0 Dilated cardiomyopathy; F17.210 Nicotine dependence, cigarettes, uncomplicated; E66.01 Morbid (severe) obesity due to excess calories; Z95.810 Presence of automatic (implantable) cardiac defibrillator; Z79.01 Long term (current) use of anticoagulants; I25.2 Old myocardial infarction; Z82.49 Family history of ischemic heart disease and other diseases of the circulatory system; Z83.3 Family history of diabetes mellitus; Z79.82 Long term (current) use of aspirin; Z79.899 Other long term (current) drug therapy; Z79.84 Long term (current) use of oral hypoglycemic drugs; Z68.35 Body mass index [BMI] 35.0-35.9, adult; Z71.3 Dietary counseling and surveillance; Z86.718 Personal history of other venous thrombosis and embolism; I69.354 Hemiplegia and hemiparesis following cerebral infarction affecting left non-dominant side; Z86.711 Personal history of pulmonary embolism; Z71.6 Tobacco abuse counseling; R56.9 Unspecified convulsions
CPT/HCPCS: 36415; 70450; 71045; 80048; 80061; 82550; 82553; 82962; 84484; 85025; 85049; 85610; 85670; 85730; 90686; 93005; 93010; 93306; 99406; G0378; A9270-GY; J0360; J1650; J1953; J2060; J3480

== ENCOUNTER 2021-07-04 20:52 | Emergency (ER) | payer MEDICAID ==
--- NOTE | 2021-07-04 23:54 | Emergency Department Report ---
ED General Adult HPI - General Chief complaint: Medical Clearance Stated complaint: Urine frequency PUI?: No Time Seen by Provider: 07/04/21 23:49 Source: patient, EMS Mode of arrival: Wheelchair Limitations: No Limitations - History of Present Illness Initial comments: Patient is a 46-year-old female that presents emergency room with urinary frequency. Patient states that she goes to the restroom a lot over the last 2 days she has had increased frequency. Patient states her diuretics make her pee a lot but now she is peeing much more. Patient states she is nonambulatory and that is normal for her since her 2 strokes. Patient states she feels fatigued. Patient denies weakness. Patient denies chest pain or shortness of breath. Patient denies fever and chills. Patient denies abdominal pain. Patient denies recent travel. Patient denies recent international travel. Patient denies exposure to the novel coronavirus. Patient denies sick contacts. Patient denies fever and chills. Patient denies cough. Patient denies diarrhea. Patient denies coming in contact with anybody with symptoms of the novel coronavirus. -: Gradual Severity scale (0 -10): 0 Consistency: constant Improves with: rest Worsens with: other (Urinating) Associated Symptoms: malaise. denies: confusion, chest pain, cough, diaphoresis, fever/chills, headaches, loss of appetite, nausea/vomiting, rash, seizure, shortness of breath, syncope, weakness - Related Data Previous Rx's Medication Instructions Recorded Last Taken Type Aspirin EC [Halfprin EC] 81 mg PO QDAY #30 tablet. 07/18/19 Unknown Rx AtorvaSTATin [Lipitor] 80 mg PO QHS #30 tablet 07/18/19 Unknown Rx Docusate Sodium [Colace CAP] 100 mg PO BID #60 capsule 07/18/19 Unknown Rx Furosemide [Lasix TAB] 40 mg PO QDAY #30 tablet 07/18/19 Unknown Rx Magnesium Hydroxide [Milk of 30 ml PO Q4H PRN oral.liqd 07/18/19 Unknown Rx Magnesia] Melatonin [Melatonin 5MG TAB] 5 mg PO QHS #30 tablet 07/18/19 Unknown Rx Spironolactone [Aldactone] 25 mg PO QDAY #30 tablet 07/18/19 Unknown Rx Warfarin [Coumadin] 3.5 mg PO DAILY@1700 #30 tablet 07/18/19 Unknown Rx carvediloL [Coreg] 3.125 mg PO BID #60 tablet 07/18/19 Unknown Rx carvediloL [Coreg] 6.25 mg PO BID #30 tablet 07/18/19 Unknown Rx levETIRAcetam [Keppra TAB] 750 mg PO BID #60 tablet 07/18/19 Unknown Rx lisinopriL [Zestril TAB] 20 mg PO QDAY #30 tablet 07/18/19 Unknown Rx Allergies Allergy/AdvReac Type Severity Reaction Status Date / Time No Known Allergies Allergy Verified 12/01/18 12:19 ED Review of Systems ROS: Stated complaint: WEAKNESS Other details as noted in HPI Constitutional: denies: chills, fever Eyes: denies: eye pain, eye discharge, vision change ENT: denies: ear pain, throat pain Respiratory: denies: cough, shortness of breath, wheezing Cardiovascular: denies: chest pain, palpitations Endocrine: no symptoms reported Gastrointestinal: denies: abdominal pain, nausea, diarrhea Genitourinary: as per HPI, urgency, frequency. denies: discharge Musculoskeletal: denies: back pain, joint swelling, arthralgia Skin: denies: rash, lesions Neurological: denies: headache, weakness, paresthesias Psychiatric: denies: anxiety, depression Hematological/Lymphatic: denies: easy bleeding, easy bruising ED Past Medical Hx - Past Medical History Previous Medical History?: Yes Hx Hypertension: Yes Hx CVA: Yes (x2. 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 Intra- abdominal abscess perirectal abscesses PE and DVT CVA cardiomyopathy C. difficile colitis - Surgical History Past Surgical History?: Yes Hx Coronary Stent: Yes Hx Pacemaker: No Hx Internal Defibrillator: Yes Additional Surgical History: 4 C-sections, ankle surgery (w/plate)-left - Family History Family history: no significant - Social History Smoking Status: Current Every Day Smoker Substance Use Type: None - Medications Home Medications: Home Medications Medication Instructions Recorded Confirmed Last Taken Type Aspirin EC [Halfprin EC] 81 mg PO QDAY #30 tablet.dr 07/18/19 Unknown Rx AtorvaSTATin [Lipitor] 80 mg PO QHS #30 tablet 07/18/19 Unknown Rx Docusate Sodium [Colace CAP] 100 mg PO BID #60 capsule 07/18/19 Unknown Rx Furosemide [Lasix TAB] 40 mg PO QDAY #30 tablet 07/18/19 Unknown Rx Magnesium Hydroxide [Milk of 30 ml PO Q4H PRN oral.liqd 07/18/19 Unknown Rx Magnesia] Melatonin [Melatonin 5MG TAB] 5 mg PO QHS #30 tablet 07/18/19 Unknown Rx Spironolactone [Aldactone] 25 mg PO QDAY #30 tablet 07/18/19 Unknown Rx Warfarin [Coumadin] 3.5 mg PO DAILY@1700 #30 tablet 07/18/19 Unknown Rx carvediloL [Coreg] 3.125 mg PO BID #60 tablet 07/18/19 Unknown Rx carvediloL [Coreg] 6.25 mg PO BID #30 tablet 07/18/19 Unknown Rx levETIRAcetam [Keppra TAB] 750 mg PO BID #60 tablet 07/18/19 Unknown Rx lisinopriL [Zestril TAB] 20 mg PO QDAY #30 tablet 07/18/19 Unknown Rx ED Physical Exam - General Limitations: No Limitations General appearance: alert, in no apparent distress - Head Head exam: Present: atraumatic, normocephalic - Eye Eye exam: Present: normal appearance - ENT ENT exam: Present: mucous membranes moist - Neck Neck exam: Present: normal inspection - Respiratory Respiratory exam: Present: normal lung sounds bilaterally. Absent: respiratory distress, wheezes, rales - Cardiovascular Cardiovascular Exam: Present: regular rate, normal rhythm. Absent: systolic murmur, diastolic murmur, rubs, gallop - GI/Abdominal GI/Abdominal exam: Present: soft, normal bowel sounds. Absent: distended, tenderness, guarding, rebound - Extremities Exam Extremities exam: Present: normal inspection - Back Exam Back exam: Present: normal inspection - Neurological Exam Neurological exam: Present: alert, oriented X3 - Psychiatric Psychiatric exam: Present: normal affect, normal mood - Skin Skin exam: Present: warm, dry, intact, normal color. Absent: rash ED Course Vital Signs 07/04/21 21:02 Temperature 98.4 F Pulse Rate 92 H Respiratory 20 Rate Blood Pressure 173/100 [Right] - Reevaluation(s) Reevaluation #1: I discussed all results and clinical findings with patient. I discussed plan of care with patient. Patient agrees with plan of care. Patient is stable for discharge. Patient will be discharged home. Patient given discharge instructions. Patient voiced understanding of discharge instructions. 07/05/21 03:41 ED Medical Decision Making - Lab Data Result diagrams: 07/05/21 00:10 07/05/21 00:10 - Medical Decision Making Patient is a 46-year-old female who presents emergency room with complaints of u rinary frequency and urgency. Patient states she takes diuretics. Patient states she always has urinary frequency and urgency because of her diuretics but states that her urinary frequency and urgency is worsening. Patient denies fever and chills. Patient denies pain with urination. Patient denies any other symptoms. Patient had labs done which were essentially unremarkable. Patient's labs shows dehydration. Patient's urine was negative for a infection and UTI. Patient stable for discharge. Patient not require any further emergency medical service. Patient not require inpatient services. Patient discharged home. I discussed all results and clinical findings with patient. I discussed plan of care with patient. Patient agrees with plan of care. Patient is stable for discharge. Patient will be discharged home. Patient given discharge instructions. Patient voiced understanding of discharge instructions. - Differential Diagnosis UTI, dysuria, urinary frequency, side effect of diuretics. Critical care attestation.: If time is entered above; I have spent that time in minutes in the direct care of this critically ill patient, excluding procedure time. ED Disposition Clinical Impression: Urinary frequency, Dehydration, Uncontrolled hypertension Disposition: 01 HOME / SELF CARE / HOMELESS Is pt being admited?: No Does the pt Need Aspirin: No Condition: Stable Instructions: Hypertension (ED), Dehydration, Adult, [id number], Preventing Hypertension, Urinary Frequency, Adult, Managing Your Hypertension, Hypertension, Adult Additional Instructions: Patient to follow-up with primary care in 2 to 3 days. Patient to follow-up with neurologist in 2 to 3 days. Patient to rest. Patient to increase water. Patient to continue all medications. Patient given a low-salt diet. Patient to increase water. Patient to eat a heart healthy diet. Patient to monitor blood pressure at home. Patient to keep a blood pressure log. Patient take blood pressure log to all follow-up appointments. . Patient to return to the ER if condition worsens, changes or new symptoms arise. Referrals: PRIMARY CARE, [Primary Care Provider] - 2-3 Days OMAR SOARES MD [Staff Physician] - 2-3 Days Time of Disposition: 03:44
[2021-07-05 00:44] LABS: Basophils % (Auto) 0.4 % (0.0-1.8); Eosinophils # (Auto) 0.2 K/mm3 (0.0-0.4); Eosinophils % (Auto) 2.4 % (0.0-4.3); Hemoglobin 14.8 gm/dl (10.1-14.3); Lymphocytes # (Auto) 1.4 K/mm3 (1.2-5.4); Lymphocytes % (Auto) 14.8 % (13.4-35.0); Mean Corpuscular HGB Conc 33 % (30-34); Mean Corpuscular Volume 83 fl (79-97); Monocytes # (Auto) 0.6 K/mm3 (0.0-0.8); Monocytes % (Auto) 6.9 % (0.0-7.3); Platelet Count 172 K/mm3 (140-440); Red Blood Count 5.44 M/mm3 (3.65-5.03)
[2021-07-05 00:53] LABS: BUN/Creatinine Ratio 15; Blood Urea Nitrogen 17 mg/dL (7-17); Calcium 9.8 mg/dL (8.4-10.2)
[2021-07-05 00:54] LABS: Alanine Aminotransferase 9 units/L (7-56); Albumin 3.8 g/dL (3.9-5); Hemolysis Index 2
[2021-07-05] MEDS ORDERED: GABAPENTIN 400 MG CAP PO ONE (03:05)
[2021-07-05] MEDS ORDERED: ACETAMINOPHEN 500 MG TAB PO ONE (03:07)
[2021-07-05 03:33] LABS: Bilirubin,Urine Small (Negative); Blood,Urine Negative (Negative); Color,Urine Yellow (Yellow); Ictotest,Urine Negative (Negative); Protein,Urine >500 mg/dL (Negative)
[2021-07-05 04:05] VITALS: BP 126/76
== END 2021-07-05 04:04 | disposition home or self-care (01) ==
LOC: ED 20:52
DX: R35.0 Frequency of micturition (principal); E86.0 Dehydration; I10 Essential (primary) hypertension; F17.200 Nicotine dependence, unspecified, uncomplicated; E11.8 Type 2 diabetes mellitus with unspecified complications; Z86.79 Personal history of other diseases of the circulatory system
CPT/HCPCS: 36415; 80053; 81001; 85025; 99284